=== PATIENT | female | born 1945 | race African-American/Black ===

== ENCOUNTER 2017-12-20 13:08 | Inpatient (IN) | payer OTHER ==
[~2017-12-20] VITALS: Ht 170.2 cm; Wt 33.2 kg
--- NOTE | ~2017-12-20 | EKG ---
[address] [address] ELECTROCARDIOGRAM REPORT Name: SERG GRISSOM Room #: 226- ADM IN M.R.#: [id number] Admission: 12/20/17 Attend Phys: Aakash Yi MD Discharge: Date of : 43 Report #: [id number] THIS REPORT FOR: //name// [facility] Test Date: 2017-12-28 Test Time: 07:15:56 Pat Name: SERG GRISSOM Department: Room: 226 Gender: F Pier Runner: TRISTIAN : 1945 Requested By: Richard Vasquez Order Number: [id number] MD: Oneal Simon Measurements Intervals [place] Rate: 48 P: 61 DC: 136 QRS: 53 QRSD: 115 T: 108 QT: 504 QTc: 451 Interpretive Statements Sinus bradycardia Abnrm T, anterior leads Compared to ECG 12/20/2017 13:55:05 Heart rate has slowed Electronically Signed On 12-28-2017 8:18:13 CDT by Oneal Simon [email or web address] <ELECTRONICALLY SIGNED> By: Oneal Simon MD, [facility] 12/28/1718 4 4 Oneal Simon MD, [facility] /EPI
--- NOTE | ~2017-12-20 | HC ---
[facility] [place] [address] CONSULTATION Name: SERG GRISSOM Room #: 226-P ADM IN M.R.#: [id number] Admission: 12/20/17 Attend Phys: Aakash Yi MD Discharge: Date of : 43 Report #: [id number] THIS REPORT FOR: //name// CC: Aakash Yi NO PCP REASON FOR CONSULTATION: I was asked to evaluate concerning scalp abscess. HISTORY OF PRESENT ILLNESS: The patient is a 72-year-old who presented on 12/20/2017 from home where she was having altered mental status, hyperlipidemia. She was having headache. She was found to have an abscess to her scalp. She underwent bedside debridement and drainage. Cultures revealed MRSA. Treated with clindamycin. No fever or chills. Still has tenderness in her scalp. It is noted that she had presented to the Emergency Room several nights before this for incision and drainage. This was done at [facility]. She has been treated there with ceftriaxone followed by doxycycline. Blood cultures remain negative. Urine culture showed mixed rom. Scalp abscess culture revealed MRSA. She reports scratching her scalp. No previous issues such as chronic wound or skin lesion prior to this. She had a CT scan of the head, which showed a 5 x 8 cm area of inflammatory change. She had left temporal lobe subacute versus chronic infarct. PAST MEDICAL HISTORY: Diabetes, hypertension, anemia, gastritis with gastric ulcers, stroke with previous right hemiparesis, cholecystectomy. ALLERGIES: PENICILLIN AND SULFA. MEDICATIONS: As noted on her MAR, now on clindamycin. FAMILY HISTORY: Noncontributory. SOCIAL HISTORY: Nonsmoker, distant alcohol intake. REVIEW OF SYSTEMS: SKIN: As noted above with no other skin lesions noted. CONSTITUTIONAL: Had no documented fever, chills or sweats. She has had no weight loss. No reported lymphadenopathy. NEUROLOGIC: No other neurologic change other than what is recorded in her HPI. Her mental status has improved since her hospital stay. ENDOCRINE: Has underlying diabetes, which was out of control on admission. CARDIOPULMONARY: No cardiopulmonary complaints. GASTROINTESTINAL AND GENITOURINARY: No GI or complaints. PSYCHIATRIC: No other psychiatric issues noted. PHYSICAL EXAMINATION: GENERAL: She was alert and cooperative. [place] [address] CONSULTATION Name: SERG GRISSOM Room #: 226-P [facility] IN ..#: [id number] Admission: 12/20/17 Attend Phys: Aakash Yi MD Discharge: Date of : 43 Report #: [id number] EYES: With no conjunctival injection or scleral icterus. HENT: Had swelling to the top of her head. There is purulent drainage from a sinus tract there. There was surrounding induration and fluctuance. Able to express a fairly large amount of purulent material from the tissues. This area was exquisitely tender. Surrounding erythema. No neck stiffness. She had full range of motion. No adenopathy noted. Mouth was unremarkable. LUNGS: Clear. HEART: Regular. ABDOMEN: Soft and nontender. EXTREMITIES: Without edema or cyanosis. NEUROLOGIC: Cranial nerves were intact. Strength was equal bilaterally. Sensation was intact bilaterally upper and lower extremities. PSYCHIATRIC: Normal. SKIN: No other skin lesions noted. LABORATORY STUDIES: Sodium 136, potassium 4.4, bicarbonate 26, creatinine 1.7, hemoglobin 10.6, WBC 6.9, platelet count 289,000. Cultures as noted above. IMPRESSION AND PLAN: A 72-year-old with underlying diabetes, previous stroke, presents with methicillin-resistant Staphylococcus aureus scalp abscess. This has been locally debrided at the bedside. She may need more extensive debridement done as well. We will continue with dressing changes twice a day, vancomycin and see how she does over the next 24 hours. If no improvement, would have surgical evaluation for debridement. So far, I do not see any evidence of a skin lesion that would suggest underlying cancer, but if further debridement is done, I would send tissue sample off to pathology. <ELECTRONICALLY SIGNED> By: Agus Boss MD 12/26/17 0853 1409 2333 Agus Boss MD /nt
--- NOTE | ~2017-12-20 | P ---
[facility] [place] [address] PROCEDURE REPORT Name: SERG GRISSOM Room #: 226-P [facility] IN M.R.#: [id number] Admission: 12/20/17 Attend Phys: Aakash Yi MD Discharge: Date of : 44 Report #: [id number] THIS REPORT FOR: //name// CC: Aakash Yi NO PCP PREPROCEDURE DIAGNOSIS: Abscess of the scalp. POSTPROCEDURE DIAGNOSIS: Abscess of the scalp. PROCEDURE: Incision and drainage with extension of previous incision to scalp abscess. ANESTHESIA: 1% lidocaine with 1:100,000 epinephrine injected locally. ESTIMATED BLOOD LOSS: 2 mL. The patient tolerated procedure with 0 pain. HISTORY: This is a 72-year-old female patient with diabetes who was admitted with a persistently draining scalp abscess. She has had prior outpatient incision and drainage procedures and had failed to take antibiotics post-procedure, has become increasingly infected. She has been on intravenous antibiotics and reports no problems today. Examination today demonstrated some persistent purulent drainage without adequate incision for full dressings and appropriate drainage. DESCRIPTION OF PROCEDURE: The patient verbally consented to extension of the existing incision. A time-out was taken and verified right patient, right site, right procedure. The scalp was then prepped and draped in usual sterile fashion using Betadine. A local anesthetic was achieved with 1% lidocaine with epinephrine injected locally. The patient felt no pain with the injection. A 15 blade scalpel was then used to extend the incision. The preprocedure measurements included 1.0 x 0.5 x 1.5. Postprocedure measurements 2.0 x 0.5 x 1.5. A moderate amount of purulent material was expressed and then irrigated from the abscess cavity. It was then packed with 1/4-inch iodoform gauze. The patient tolerated the procedure well. <ELECTRONICALLY SIGNED> By: Vincent Cunningham MD 12/26/17 1401 1307 11 Vincent Cunningham MD /nt
--- NOTE | ~2017-12-20 | O ---
[facility] [place] [address] OPERATIVE REPORT Name: SERG GRISSOM Room #: 226-P ADM IN M.R.#: [id number] Admission: 12/20/17 Attend Phys: Aakash Yi MD Discharge: Date of : 43 Report #: [id number] THIS REPORT FOR: //name// CC: Vincent Yi NO PCP DATE OF SERVICE: 12/28/2017 SURGEON: Richard Vasquez MD WEATHERIZATION FIELD TECHNICIAN: None. PREOPERATIVE DIAGNOSES: 1. Scalp wound secondary to methicillin-resistant Staphylococcus aureus, status post incision and drainage of an abscess. 2. Class 2 obesity. 3. Type 2 diabetes mellitus. 4. Hypertension. 5. Encephalopathy. POSTOPERATIVE DIAGNOSES: 1. Scalp wound secondary to methicillin-resistant Staphylococcus aureus, status post incision and drainage of an abscess. 2. Class 2 obesity. 3. Type 2 diabetes mellitus. 4. Hypertension. 5. Encephalopathy. PROCEDURE: Excisional debridement of scalp wound including skin and subcutaneous tissue (2.5 cm x 0.5 cm). ANESTHESIA: Monitored anesthetic care and local anesthetic. ESTIMATED BLOOD LOSS: 10 mL. SPECIMEN: Scalp skin/subcutaneous tissue. COMPLICATIONS: None appreciated. INDICATIONS FOR PROCEDURE: This is a 72-year-old female patient with a history of previous stroke and type 2 diabetes mellitus, who has recurrent scalp abscess that has persisted despite multiple incision and drainage procedures with appropriate wound care. She has known MRSA. She underwent incision and drainage in the Emergency Room as well as widening of the incision at the [facility] [address] [place] [address] OPERATIVE REPORT Name: SERG GRISSOM Room #: 226-P ADM IN M.R.#: [id number] Admission: 12/20/17 Attend Phys: Aakash Yi MD Discharge: Date of : 44 Report #: [id number] bedside by wound care and continues to drain purulent fluid with fluctuance located anteriorly. She presents today for excisional debridement with further opening of the wound to facilitate wound care. DESCRIPTION OF PROCEDURE IN DETAIL: After the risks, benefits, expectations of the operation were discussed in detail with the patient's family, informed consent was obtained. The patient was identified in the preoperative holding area. She has been receiving scheduled IV antibiotics. She was taken to the operating room. She was placed in the supine position. SCDs were placed on the patient's bilateral lower extremities and pneumatic compression was initiated. The patient was then given IV sedation/monitored anesthetic care. Her scalp was prepped and draped in the standard sterile fashion. A time-out was performed to identify the correct patient and procedure. Local anesthetic was infiltrated into the skin and subcutaneous tissue surrounding the wound. Sharp #15 blade scalpel was used to make an incision that encompassed a length of 2.5 cm x 0.5 cm. The tissue was excised, to be sent for specimen. Cultures were taken from the base of the wound where fibrinous exudate was seen. The wound was then mechanically debrided with 4 x 4. There was good blood supply present. Bleeding points were made hemostatic with electrocautery around the edges of the wound. The wound was then packed with half inch iodoform gauze. 4 x 4s and Kerlix roll were then placed to help with compression of the wound. The patient tolerated the procedure well. She was awakened and taken to recovery room in stable condition with no apparent intraoperative complications. She did remain hypertensive throughout the operation and to the recovery room. <ELECTRONICALLY SIGNED> By: Ricahrd Vasquez MD, FACS 12/28/17 1339 0844 1046 Richard Vasquez MD, FACS /nt
--- NOTE | ~2017-12-20 | EKG ---
[address] [address] ELECTROCARDIOGRAM REPORT Name: SERG GRISSOM Room #: 170-7 ADM IN M.R.#: [id number] Admission: 12/20/17 Attend Phys: Aakash Yi MD Discharge: Date of : 44 Report #: [id number] THIS REPORT FOR: //name// [facility] ED Test Date: 2017-12-20 Test Time: 13:55:05 Pat Name: SERG GRISSOM Department: Room: 170 Gender: F Travel Counselor: as : 1945 Requested By: Parker Russell Order Number: [id number] MD: Josh Thorne Measurements Intervals [place] Rate: 84 P: 45 [place]: 139 QRS: 9 QRSD: 97 T: 58 QT: 403 QTc: 477 Interpretive Statements Sinus rhythm Probable left atrial enlargement Low voltage, extremity leads Nonspecific T abnormalities, anterior leads Compared to ECG 12/19/2017 11:36:07 Low QRS voltage now present T-wave abnormality now present Electronically Signed On 12-20-2017 16:29:38 CDT by Josh Thorne [email or web address] <ELECTRONICALLY SIGNED> By: Josh Thorne MD 12/20/17 1629 1355 1355 Josh Thorne MD /EPI
--- NOTE | ~2017-12-20 | 2DMMODE ---
[facility] [address] [facility] [employer] [place] [address] 2 D/M-MODE ECHOCARDIOGRAM Name: SERG GRISSOM Room #: 462-P ADM IN .R.#: [id number] Admission: 12/20/17 Attend Phys: Aakash Yi MD Discharge: Date of : 43 Date of Service: 12/21/17 1305 Report #: [id number] THIS REPORT FOR: //name// APPROVED REPORT Study performed: 12/21/2017 12:12:59 EXAM: Comprehensive 2D, Doppler, and color-flow Echocardiogram Patient Location: Bedside Room #: 462 Status: routine BSA: 2.13 HR: 88 bpm Rhythm: NSR Other Information Study Quality: Adequate Indications Diabetes Elevated Troponin Hypertension/HDD 2D Dimensions RVDd: 32.76 mm IVSd: 13.23 (7-11mm) LVOT Diam: 18.07 (18-24mm) LVDd: 47.18 mm PWd: 13.08 (7-11mm) Ascending Ao: 28.47 (22-36mm) LVDs: 30.89 (25-40mm) Aortic Root: 30.57 mm IVC: 20.00 mm Volumes Left Atrial Volume (Systole) Single Plane 4CH: 65.53 mL Single Plane 2CH: 47.17 mL LA ESV Index: 28.00 mL/m2 Aortic Valve AoV Peak Mike.: 1.77 m/s AO Peak Gr.: 12.53 mmHg LVOT Max P.99 mmHg LVOT Max V: 1.00 m/s DESMOND Vmax: 1.45 cm2 Mitral Valve E/A Ratio: 0.5 [facility] [address] [place] [address] 2 D/M-MODE ECHOCARDIOGRAM Name: SERG GRISSOM Room #: 462-P [facility]#: [id number] Admission: 12/20/17 Attend Phys: Aakash Yi MD Discharge: Date of : 43 Date of Service: 12/21/17 1305 Report #: [id number] MV Decel. Time: 242.21 ms MV E Max Mike.: 0.67 m/s MV A Mike.: 1.27 m/s MV PHT: 70.24 ms IVRT: 115.34 ms Pulmonary Valve PV Peak Mike.: 1.04 m/s PV Peak Gr.: 4.37 mmHg Pulmonary Vein P Vein S: 0.59 m/s P Vein A: 0.34 m/s P Vein D: 0.30 m/s P Vein A Dur.: 115.3 msec P Vein S/D Ratio: 1.97 Tricuspid Valve TR Peak Mike.: 3.73 m/s TR Peak Gr.: 55.62 mmHg PA Pressure: 66.00 mmHg Left Ventricle The left ventricle is normal size. There is normal LV segmental wall motion. Mild concentric left ventricular hypertrophy. The left ventricular systolic function is normal. The left ventricular ejection fraction is within the normal range. LVEF is 60-65%. Grade I - abnormal relaxation pattern. Right Ventricle The right ventricle is normal size. The right ventricular systolic function is normal. Atria The left atrium size is normal. The right atrium size is normal. Aortic Valve Aortic valve is mildly calcified. No aortic regurgitation is present. There is no aortic valvular stenosis. Mitral Valve Moderate mitral annular calcification. There is no mitral valve regurgitation noted. No evidence of mitral valve stenosis. Tricuspid Valve The tricuspid valve is normal in structure. There is mild tricuspid regurgitation. Estimated PAP 65 mmHg. There is [place] [address] 2 D/M-MODE ECHOCARDIOGRAM Name: SERG GRISSOM Room #: 462-P [facility] IN .R.#: [id number] Admission: 12/20/17 Attend Phys: Aakash Yi MD Discharge: Date of : 43 Date of Service: 12/21/17 1305 Report #: [id number] Pulmonic Valve The pulmonary valve is normal in structure. Trace pulmonic regurgitation. Great Vessels The aortic root is normal in size. IVC is dilated and collapses >50% with inspiration. Pericardium There is no pericardial effusion. <Conclusion> The left ventricular systolic function is normal. There is normal LV segmental wall motion. LVEF is 60-65%. Mild diastolic dysfunction Aortic valve is mildly calcified. No aortic regurgitation or stenosis Moderate mitral annular calcification. No mitral valve regurgitation noted. There is mild tricuspid regurgitation. Estimated pulmonary artery pressure of 65 mmHg. There is no pericardial effusion. <ELECTRONICALLY SIGNED> By: Oneal Simon MD, FACC 12/21/17 1305 1305 1305 Oneal Simon MD, FACC /INF
--- NOTE | ~2017-12-20 | HC ---
[facility] [place] [address] CONSULTATION Name: SERG GRISSOM Room #: 226-P ADM IN M.R.#: [id number] Admission: 12/20/17 Attend Phys: Aakash Yi MD Discharge: Date of : 43 Report #: [id number] THIS REPORT FOR: //name// CC: Aakash PEDRO PCP DATE OF SERVICE: 12/21/2017 CHIEF COMPLAINT: Scalp abscess. HISTORY OF PRESENT ILLNESS: This is a 72-year-old female patient, with a history of previous cerebrovascular accident and type 2 diabetes mellitus, who has had a persistent and/or recurrent scalp abscess. She has had multiple Emergency Room visits with incision and drainage procedures. She has had antibiotics prescribed, although they were not filled in the area and has continued to worsen with increased drainage. PAST MEDICAL HISTORY: Positive for history of acute kidney injury, altered mental status, dehydration, diabetes mellitus, diarrhea and sciatica. ALLERGIES: PENICILLIN AND SULFA. MEDICATIONS: Includes metoprolol, doxycycline, hydrocodone, losartan, simvastatin, amlodipine, Plavix, iron, Humalog, Avalide, Mag-Ox, Neurontin, aspirin, Levemir, Cymbalta, Coreg. SOCIAL HISTORY: Negative for alcohol or tobacco use. FAMILY HISTORY: Noncontributory. REVIEW OF SYSTEMS: Really not able to be obtained due to the patient's mental status. PHYSICAL EXAMINATION: VITAL SIGNS: At this time include temperature 36.9, pulse 70, respiratory rate of 16, blood pressure 145/85. GENERAL: This is a chronically ill-appearing female patient who appears to be in minimal distress. HEAD: Demonstrates an area of erythema and some induration as well as a small open wound to the vertex of her scalp. There is moderate purulent drainage noted at this time. There is undermining from beneath as well. The area is tender to palpation. Head is atraumatic. Nose and throat clear. NECK: Supple. LUNGS: Clear. ABDOMEN: Soft. CARDIOVASCULAR: Regular rhythm. [address] [address] CONSULTATION Name: SERG GRISSOM Room #: [facility] IN ..#: [id number] Admission: 12/20/17 Attend Phys: Aakash Yi MD Discharge: Date of : 43 Report #: [id number] EXTREMITIES: Without clubbing or cyanosis. LABORATORY DATA: Includes white blood cell count of 10.8, hemoglobin 11.8, hematocrit of 35.1. Sodium 136, potassium 4.5, CO2 of 25, BUN 26, creatinine 1.4, hemoglobin A1c is 11.6. CLINICAL IMPRESSION: 1. Scalp abscess, failing outpatient therapy. 2. Medical noncompliance. 3. Type 2 diabetes mellitus with hyperglycemia, uncontrolled. Hemoglobin A1c 11.6. 4. Moderate protein calorie malnutrition with albumin of 2.3. RECOMMENDATIONS: At this point in time, I obtained a culture and sensitivity from the scalp wound. We packed it with iodoform gauze at present. We will recommend intravenous antibiotic therapy. We will check her again in the morning. Should she have significant improvement, we will continue with local care. If not, she may require a wider debridement and drainage procedure. She will need aggressive nutritional support to maximize wound healing and improve glycemic control. I appreciate having been asked to see her in consultation. <ELECTRONICALLY SIGNED> By: Vincent Cunningham MD 12/22/17 0739 2224 0138 Vincent Cunningham MD /nt
--- NOTE | ~2017-12-20 | PATH ---
[facility] [address] [place] [address] PATHOLOGY RPT PROCEDURE Name: SERG GRISSOM Room #: 226-P DIS IN M.R.#: [id number] Admission: 12/20/17 Date of : 43 Discharge: 01/02/18 Report #: [id number] Path Case #: [id number] [facility] Accession Number: [id number] . 01 Material submitted: . SCALP WOUND . 01 Clinician provided ICD-10: L02.811 . 01 Clinical history: . Scalp wound . 02 Diagnosis: Scalp wound, debridement with irrigation: - Ulceration along with marked acute inflammation extending into the underlying dermis and subcutaneous tissue as well as with fibrinoid degeneration, consistent with wound. - Overlying squamous epithelium showing reactive changes. - Negative for malignancy. . (IUV:at;12/29/2017) QTA/12/29/2017 . 02 Electronically signed: . Nena Li MD, Pathologist NPI- [id number] . 01 Gross description: . The specimen is received in formalin, labeled "Serg Grissom, scalp wound", is an irregular segment of brock-white skin measuring 2.0 x 1.5 x 0.5 cm, serially sectioned and entirely submitted in A1. (SWS; 12/28/2017) SHS/SHS . 02 Pathologist provided ICD-10: L98.499, L03.811 . 02 CPT . 981697 Specimen Comment: A courtesy copy of this report has been sent to Specimen Comment: [phone], . Specimen Comment: Report sent to / DR MORAN Performed at: [address] [place] [id number] [id number] MD Deo Gutiérrez MD Phone: [phone] [address] [address] PATHOLOGY RPT PROCEDURE Name: SERG GRISSOM Room #: 226-P [facility] IN M.R.#: [id number] Admission: 12/20/17 Date of : 43 Discharge: 01/02/18 Report #: [id number] Path Case #: [id number] Performed at: [address] [id number] MD Nena Li MD Phone: [phone]
[~2017-12-20 13:08] MED LIST: ACTOS; AMLODIPINE; ANTIDIARRHEAL2 MG PO; ASPIR 8181 MG PO; AVALIDE 300-121 EACH PO; BAYER CHEWABLE81 MG; CALCIUM 600 +1 EAC1 PO; CARAFATE 1 GM TA1 G1 PO; CIPROFLOXACIN500 M1 PO; CLONIDINE0.1 PO; COLACE100 MG PO; CYMBALTA60 MG PO; FLAGYL500 MG PO; HCTZ; HUMALOG100 UNIT/1 SUBQ; HUMULIN 70100 UNIT/2 SUBQ; HYDROCHLOROTHIA25 M2 PO; IMODIUM MULTI-1 EACH PO; IRON325 PO; LANTUS SUBQ; LANTUS100 UNIT/M; LANTUS100 UNIT/M SUBQ; LEVEMIR SUBQ; LEVEMIR100 UNIT/1 SQ; LISINOPRIL; LISINOPRIL20 MG PO; MAGOX 400400 MG PO; MAXZIDE-25 MG1 EACH PO; METOPROLOL SUCC50 MG PO; NAPROSYN500 MG PO; NEURONTIN 300300 M1 PO; NORCO 10-325 T1 EACH PO; NORCO 5-325 TA1 EACH PO; NORVASC5 MG PO; NOVOLOG100 UNIT/1; NOVOLOG100 UNIT/1 SQ; NOVOLOG100 UNIT/1 SUBQ; NOVOLOG100 UNIT/M SUBQ; ONDANSETRON HCL4 M2 PO; PLAVIX 75 MG TA75 M1 PO; PROTONIX40 M1 PO; PROTONIX40 M4 PO; PROTONIX40 MG PO; REGLAN 10 MG TA10 MG PO; SIMVASTATIN40 MG PO; TRAMADOL 50 MG50 MG PO; TRIAMTERENE-HC1 EAC2 PO; TRIAMTERENE/HCT1 CA1 PO; VIBRAMYCIN 100100 M2 PO; VOLTAREN GEL 1100 G2; ZOCOR; ZOCOR 10 MG TAB10 MG; ZOFRAN ODT4 MG PO; ZOFRAN4 MG PO
[2017-12-20 13:09] VITALS: BP 100/79
[2017-12-20 14:59] LABS: ABSOLUTE NEUTROPHILS 8.6 thou/uL (1.4-8.2); BASOPHILS 0.6 % (0.0-2.0); EOSINOPHILS 1.2 % (0.0-3.0); HEMATOCRIT 35.1 % (37.0-47.0); HEMOGLOBIN 11.8 gm/dL (12.0-15.0); LYMPHOCYTES 13.1 % (24.0-44.0); MCH 29.3 pg (26.0-34.0); MCHC 33.6 g/dL (28.0-37.0); MONOCYTES 6.1 % (1.0-8.0); PLATELET COUNT 286 thou/uL (150-400); RBC 4.04 mil/uL (4.20-5.00); RDW 14.9 % (10.5-14.5); WBC 10.8 thou/uL (4.0-11.0)
[2017-12-20 15:18] LABS: CALCIUM 9.6 mg/dL (8.5-10.1); CREATININE 1.7 mg/dL (0.6-1.0); POTASSIUM 4.3 mmol/L (3.5-5.1)
[2017-12-20 15:23] LABS: TROPONIN-I 0.3 ng/mL (<0.06)
[2017-12-20 15:42] LABS: URINE BILIRUBIN NEGATIVE (Negative); URINE BLOOD 2+ (Negative); URINE CLARITY CLEAR; URINE COLOR YELLOW; URINE GLUCOSE-RANDOM* 3+ (Negative); URINE KETONES 1+ (Negative); URINE LEUKOCYTES-REFLEX NEGATIVE (Negative); URINE NITRITE-REFLEX NEGATIVE (Negative); URINE PROTEIN (DIPSTICK) 2+ (Negative); URINE SPECIFIC GRAVITY 1.025 (1.005-1.035); URINE UROBILINOGEN 0.2 E.U./dl (0.2-1.0)
[2017-12-20 15:55] LABS: BACTERIA-REFLEX 1-9 Few /HPF (None Seen); CASTS None Seen /LPF (None Seen); CRYSTALS None Seen /LPF (None Seen); MUCUS 0-3 Light strn/LPF (None Seen); SQUAMOUS >10 Many /LPF (0-3); URINE RBC 0-2 Rare /HPF (0-2); YEAST-REFLEX Present (None Seen)
[2017-12-20 16:43] VITALS: BP 127/100
[2017-12-20 16:54] VITALS: BP 128/92
[2017-12-20] MEDS ORDERED: LOSARTAN POTASS50 MG PO (17:22)
[2017-12-20] MEDS ORDERED: ZANTAC 150MG T150 MG PO (17:24)
[2017-12-20] MEDS ORDERED: CYMBALTA60 MG PO (17:25)
[2017-12-20] MEDS ORDERED: COREG6.25 MG PO (17:28)
[2017-12-20 17:50] VITALS: BP 189/78
[2017-12-20 19:59] VITALS: BP 169/107
[2017-12-21 00:47] VITALS: BP 171/80
[2017-12-21 04:53] VITALS: BP 139/65
[2017-12-21 05:23] LABS: HEMATOCRIT 31.4 % (37.0-47.0); HEMOGLOBIN 10.5 gm/dL (12.0-15.0); MCHC 33.6 g/dL (28.0-37.0); MCV 86.5 fL (80.0-100.0); RBC 3.63 mil/uL (4.20-5.00); RDW 14.6 % (10.5-14.5); WBC 8.6 thou/uL (4.0-11.0)
[2017-12-21 05:47] LABS: CALCIUM 8.9 mg/dL (8.5-10.1); CREATININE 1.4 mg/dL (0.6-1.0); POTASSIUM 3.6 mmol/L (3.5-5.1); TROPONIN-I 0.27 ng/mL (<0.06)
[2017-12-21 07:35] VITALS: BP 152/68
[2017-12-21 15:35] VITALS: BP 145/85
[2017-12-21 21:04] VITALS: BP 144/75
[2017-12-22 07:45] VITALS: BP 149/69
[2017-12-22 07:49] LABS: HEMATOCRIT 28.9 % (37.0-47.0); HEMOGLOBIN 9.7 gm/dL (12.0-15.0); MCH 28.8 pg (26.0-34.0); MCHC 33.7 g/dL (28.0-37.0); MCV 85.7 fL (80.0-100.0); RBC 3.38 mil/uL (4.20-5.00); RDW 14.4 % (10.5-14.5); WBC 7.2 thou/uL (4.0-11.0)
[2017-12-22 08:05] LABS: CALCIUM 8.9 mg/dL (8.5-10.1); CREATININE 1.6 mg/dL (0.6-1.0); MAGNESIUM 1.5 mg/dL (1.8-2.4); POTASSIUM 3.9 mmol/L (3.5-5.1); TROPONIN-I 0.18 ng/mL (<0.06)
[2017-12-22 16:35] VITALS: BP 146/69
[2017-12-22 19:10] VITALS: BP 125/77
[2017-12-23 07:27] LABS: HEMATOCRIT 29.1 % (37.0-47.0); HEMOGLOBIN 9.4 gm/dL (12.0-15.0); MCH 28.1 pg (26.0-34.0); MCHC 32.4 g/dL (28.0-37.0); MCV 86.6 fL (80.0-100.0); RBC 3.36 mil/uL (4.20-5.00); RDW 14.5 % (10.5-14.5); WBC 6.3 thou/uL (4.0-11.0)
[2017-12-23 07:40] LABS: CALCIUM 9.1 mg/dL (8.5-10.1); CREATININE 1.8 mg/dL (0.6-1.0); POTASSIUM 4.2 mmol/L (3.5-5.1)
[2017-12-23 08:19] VITALS: BP 172/89
[2017-12-23 19:58] VITALS: BP 126/93
[2017-12-24 08:23] VITALS: BP 164/81
[2017-12-24 20:06] VITALS: BP 154/109
[2017-12-25 07:30] VITALS: BP 158/102
[2017-12-25 10:25] LABS: ABSOLUTE NEUTROPHILS 4.7 thou/uL (1.4-8.2); BASOPHILS 0.6 % (0.0-2.0); EOSINOPHILS 3.1 % (0.0-3.0); HEMATOCRIT 31.7 % (37.0-47.0); HEMOGLOBIN 10.6 gm/dL (12.0-15.0); LYMPHOCYTES 22.8 % (24.0-44.0); MCH 29.1 pg (26.0-34.0); MCHC 33.6 g/dL (28.0-37.0); MCV 86.6 fL (80.0-100.0); MONOCYTES 5.5 % (1.0-8.0); PLATELET COUNT 289 thou/uL (150-400); RBC 3.66 mil/uL (4.20-5.00); RDW 14.7 % (10.5-14.5); WBC 6.9 thou/uL (4.0-11.0)
[2017-12-25 10:35] LABS: CREATININE 1.7 mg/dL (0.6-1.0); POTASSIUM 4.4 mmol/L (3.5-5.1)
[2017-12-25 21:17] VITALS: BP 134/63
[2017-12-26 07:21] LABS: HEMATOCRIT 33.2 % (37.0-47.0); HEMOGLOBIN 10.9 gm/dL (12.0-15.0); MCH 28.5 pg (26.0-34.0); MCHC 32.8 g/dL (28.0-37.0); MCV 86.9 fL (80.0-100.0); RBC 3.82 mil/uL (4.20-5.00); RDW 14.5 % (10.5-14.5); WBC 7.6 thou/uL (4.0-11.0)
[2017-12-26 07:25] VITALS: BP 193/89
[2017-12-26 07:27] LABS: CALCIUM 9.5 mg/dL (8.5-10.1); CREATININE 1.5 mg/dL (0.6-1.0); POTASSIUM 4.4 mmol/L (3.5-5.1)
[2017-12-26 19:33] VITALS: BP 151/71
[2017-12-27 08:33] VITALS: BP 196/86
[2017-12-27 16:05] LABS: HEMATOCRIT 29.8 % (37.0-47.0); HEMOGLOBIN 9.9 gm/dL (12.0-15.0); MCH 28.9 pg (26.0-34.0); MCHC 33.2 g/dL (28.0-37.0); MCV 87.1 fL (80.0-100.0); RBC 3.41 mil/uL (4.20-5.00); WBC 6.8 thou/uL (4.0-11.0)
[2017-12-27 16:17] LABS: ALBUMIN 1.8 g/dL (3.4-5.0); CALCIUM 8.9 mg/dL (8.5-10.1); CREATININE 1.5 mg/dL (0.6-1.0); MAGNESIUM 1.6 mg/dL (1.8-2.4); POTASSIUM 4.7 mmol/L (3.5-5.1); TOTAL BILIRUBIN 0.2 mg/dL (<0.1-1.0); TOTAL PROTEIN 6.3 g/dL (6.4-8.2)
[2017-12-27 17:33] VITALS: BP 156/71
[2017-12-27 19:42] VITALS: BP 152/73
[2017-12-28 06:02] VITALS: BP 185/74
[2017-12-28 06:35] LABS: HEMATOCRIT 30.8 % (37.0-47.0); HEMOGLOBIN 10.1 gm/dL (12.0-15.0); MCH 29.1 pg (26.0-34.0); MCHC 32.8 g/dL (28.0-37.0); MCV 88.6 fL (80.0-100.0); RBC 3.48 mil/uL (4.20-5.00); RDW 14.9 % (10.5-14.5); WBC 6.7 thou/uL (4.0-11.0)
[2017-12-28 06:44] LABS: CALCIUM 9.3 mg/dL (8.5-10.1); CREATININE 1.5 mg/dL (0.6-1.0); MAGNESIUM 1.8 mg/dL (1.8-2.4); POTASSIUM 4.6 mmol/L (3.5-5.1)
[2017-12-28 07:12] VITALS: BP 153/73
[2017-12-28 20:55] VITALS: BP 205/95
[2017-12-28 22:00] VITALS: BP 132/61
[2017-12-29 07:35] VITALS: BP 154/68
[2017-12-29 08:18] LABS: HEMOGLOBIN 9.4 gm/dL (12.0-15.0); MCH 27.9 pg (26.0-34.0); MCHC 31.3 g/dL (28.0-37.0); MCV 89.2 fL (80.0-100.0); RBC 3.36 mil/uL (4.20-5.00); RDW 15.2 % (10.5-14.5); WBC 7.4 thou/uL (4.0-11.0)
[2017-12-29 08:27] LABS: CALCIUM 8.8 mg/dL (8.5-10.1); CREATININE 1.5 mg/dL (0.6-1.0); MAGNESIUM 1.7 mg/dL (1.8-2.4); POTASSIUM 5.3 mmol/L (3.5-5.1)
[2017-12-29] MEDS ORDERED: NORCO 5-325 TA1 EACH PO (11:39)
[2017-12-29] MEDS ORDERED: VANCO1GM IVPB (11:56)
[2017-12-29 20:08] VITALS: BP 168/66
[2017-12-30 08:01] VITALS: BP 159/76
[2017-12-30 08:29] LABS: HEMATOCRIT 27.1 % (37.0-47.0); HEMOGLOBIN 9.1 gm/dL (12.0-15.0); MCH 29.4 pg (26.0-34.0); MCHC 33.5 g/dL (28.0-37.0); MCV 87.7 fL (80.0-100.0); RBC 3.09 mil/uL (4.20-5.00); RDW 15.1 % (10.5-14.5); WBC 6.5 thou/uL (4.0-11.0)
[2017-12-30 08:41] LABS: CALCIUM 8.9 mg/dL (8.5-10.1); CREATININE 1.6 mg/dL (0.6-1.0); MAGNESIUM 1.6 mg/dL (1.8-2.4); POTASSIUM 4.4 mmol/L (3.5-5.1)
[2017-12-30 18:26] VITALS: BP 141/49
[2017-12-30 20:00] VITALS: BP 150/70
[2017-12-31 05:49] LABS: HEMATOCRIT 26.5 % (37.0-47.0); HEMOGLOBIN 8.7 gm/dL (12.0-15.0); MCH 28.9 pg (26.0-34.0); MCHC 32.8 g/dL (28.0-37.0); RBC 3.01 mil/uL (4.20-5.00); RDW 14.9 % (10.5-14.5); WBC 6.5 thou/uL (4.0-11.0)
[2017-12-31 06:03] LABS: CREATININE 1.9 mg/dL (0.6-1.0); MAGNESIUM 1.5 mg/dL (1.8-2.4); POTASSIUM 4.7 mmol/L (3.5-5.1)
[2017-12-31 08:25] VITALS: BP 145/63
[2017-12-31 14:50] VITALS: BP 138/58
[2017-12-31 15:50] VITALS: BP 135/76
[2017-12-31 20:00] VITALS: BP 154/61
[2018-01-01 08:28] VITALS: BP 166/71
[2018-01-01 18:55] VITALS: BP 147/64
[2018-01-01 22:00] VITALS: BP 154/108
[2018-01-01 22:27] VITALS: BP 147/64
[2018-01-02 01:13] VITALS: BP 144/55
[2018-01-02] MEDS ORDERED: MIRALAX17 GM PO (09:36)
[2018-01-02] MEDS ORDERED: FOLIC ACID0.4 MG PO (09:36)
[2018-01-02] MEDS ORDERED: TYLENOL325 MG PO (09:36)
[2018-01-02] MEDS ORDERED: PROBIOTIC1 EAC1 PO (09:36)
[2018-01-02] MEDS ORDERED: HEPARIN SO5000 UNIT/ SUBQ (09:36)
[2018-01-02] MEDS ORDERED: HYDRALAZINE 2525 MG PO (09:36)
[2018-01-02] MEDS ORDERED: SENNA PLUS TAB1 EACH PO (09:36)
[2018-01-02] MEDS ORDERED: VANCO1GM IVPB (09:43)
== END 2018-01-02 10:37 | DRG 853 ==
LOC: ER 13:08 → 4W 16:25 → EROBS 16:25 → 4W 17:35 → SICU 12-21 18:06
PROVIDERS: Hospitalist; Internal Medicine; Physician Assistant
PROC: 0H90XZZ Drainage of Scalp Skin, External Approach (ICD-10-PCS; principal; 2017-12-20)
PROC: 0J900ZZ Drainage of Scalp Subcutaneous Tissue and Fascia, Open Approach (ICD-10-PCS; 2017-12-26)
PROC: 0JD00ZZ Extraction of Scalp Subcutaneous Tissue and Fascia, Open Approach (ICD-10-PCS; 2017-12-28)
DX: A41.9 Sepsis, unspecified organism (principal); G92 Toxic encephalopathy; N17.0 Acute kidney failure with tubular necrosis; L02.811 Cutaneous abscess of head [any part, except face]; N39.0 Urinary tract infection, site not specified; I69.351 Hemiplegia and hemiparesis following cerebral infarction affecting right dominant side; E44.0 Moderate protein-calorie malnutrition; L03.811 Cellulitis of head [any part, except face]; Z68.1 Body mass index [BMI] 19.9 or less, adult; R26.9 Unspecified abnormalities of gait and mobility; E11.40 Type 2 diabetes mellitus with diabetic neuropathy, unspecified; B95.62 Methicillin resistant Staphylococcus aureus infection as the cause of diseases classified elsewhere; E78.5 Hyperlipidemia, unspecified; E83.42 Hypomagnesemia; E66.8 Other obesity; I12.9 Hypertensive chronic kidney disease with stage 1 through stage 4 chronic kidney disease, or unspecified chronic kidney disease; M62.84 Sarcopenia; D50.9 Iron deficiency anemia, unspecified; N18.9 Chronic kidney disease, unspecified; R79.89 Other specified abnormal findings of blood chemistry; M54.30 Sciatica, unspecified side; E11.65 Type 2 diabetes mellitus with hyperglycemia; Z79.82 Long term (current) use of aspirin; Z79.84 Long term (current) use of oral hypoglycemic drugs; Z79.899 Other long term (current) drug therapy; Z90.49 Acquired absence of other specified parts of digestive tract; Z91.14 Patient's other noncompliance with medication regimen; Z79.4 Long term (current) use of insulin; Z88.2 Allergy status to sulfonamides; Z88.0 Allergy status to penicillin
CPT/HCPCS: 10045; 15002; 27000; 50010; 50101; 50386; 50403; 62110; 62850; 70005

== ENCOUNTER → 2018-01-10 | Outpatient (CLI) | payer OTHER ==
[~2018-01-10] MED LIST changes: +COREG6.25 MG PO; +FOLIC ACID0.4 MG PO; +HEPARIN SO5000 UNIT/ SUBQ; +HYDRALAZINE 2525 MG PO; +LOSARTAN POTASS50 MG PO; +MIRALAX17 GM PO; +PROBIOTIC1 EAC1 PO; +SENNA PLUS TAB1 EACH PO; +TYLENOL325 MG PO; +VANCO1GM IVPB; +ZANTAC 150MG T150 MG PO
== END ==
LOC: HYPER 01-03 10:36
DX: T81.89XD Other complications of procedures, not elsewhere classified, subsequent encounter (principal); E11.10 Type 2 diabetes mellitus with ketoacidosis without coma; E11.65 Type 2 diabetes mellitus with hyperglycemia; E66.9 Obesity, unspecified; I67.9 Cerebrovascular disease, unspecified; I10 Essential (primary) hypertension; M54.30 Sciatica, unspecified side; M62.84 Sarcopenia; M79.89 Other specified soft tissue disorders; R41.82 Altered mental status, unspecified; Z79.4 Long term (current) use of insulin; Z68.41 Body mass index [BMI] 40.0-44.9, adult; Y92.89 Other specified places as the place of occurrence of the external cause; Y83.8 Other surgical procedures as the cause of abnormal reaction of the patient, or of later complication, without mention of misadventure at the time of the procedure

== ENCOUNTER → 2018-01-24 | Outpatient (CLI) | payer OTHER | LOC: HYPER 06:44 | DX: T81.89XD Other complications of procedures, not elsewhere classified, subsequent encounter (principal); L02.811 Cutaneous abscess of head [any part, except face]; E11.10 Type 2 diabetes mellitus with ketoacidosis without coma; E11.65 Type 2 diabetes mellitus with hyperglycemia; I67.9 Cerebrovascular disease, unspecified; I10 Essential (primary) hypertension; M79.89 Other specified soft tissue disorders; M54.30 Sciatica, unspecified side; M62.84 Sarcopenia; Y83.8 Other surgical procedures as the cause of abnormal reaction of the patient, or of later complication, without mention of misadventure at the time of the procedure ==

== ENCOUNTER 2018-03-25 17:27 | Emergency (ER) | payer OTHER ==
[~2018-03-25] VITALS: Ht 160 cm; Wt 100.7 kg
[2018-03-25 18:39] LABS: BASOPHILS 0.9 % (0.0-2.0); EOSINOPHILS 1.6 % (0.0-3.0); HEMATOCRIT 41.2 % (37.0-47.0); HEMOGLOBIN 13.6 gm/dL (12.0-15.0); MCHC 33.1 g/dL (28.0-37.0); MCV 87.5 fL (80.0-100.0); MONOCYTES 5.1 % (1.0-8.0); POLYS 73.4 % (36.0-66.0); RBC 4.71 mil/uL (4.20-5.00); RDW 14.7 % (10.5-14.5); WBC 6.9 thou/uL (4.0-11.0)
[2018-03-25 19:03] LABS: PLATELET COUNT 189 thou/uL (150-400)
[2018-03-25 19:28] LABS: URINE CLARITY CLEAR; URINE COLOR YELLOW; URINE GLUCOSE-RANDOM* 3+ (Negative); URINE PROTEIN (DIPSTICK) 3+ (Negative); URINE SPECIFIC GRAVITY 1.025 (1.005-1.035)
[2018-03-25 19:29] LABS: URINE BILIRUBIN NEGATIVE (Negative); URINE BLOOD 1+ (Negative); URINE KETONES NEGATIVE (Negative); URINE LEUKOCYTES-REFLEX NEGATIVE (Negative); URINE NITRITE-REFLEX NEGATIVE (Negative); URINE UROBILINOGEN 0.2 E.U./dl (0.2-1.0)
[2018-03-25 19:30] LABS: CASTS None Seen /LPF (None Seen); CRYSTALS None Seen /LPF (None Seen); SQUAMOUS >10 Many /LPF (0-3)
[2018-03-25 19:31] LABS: AMORPHOUS URATES Many /LPF (None Seen); HYALINE CASTS 0-3 Few /LPF (None Seen); URINE WBC-REFLEX 0-5 Rare /HPF (0-5)
[2018-03-25 19:32] LABS: BACTERIA-REFLEX 1-9 Few /HPF (None Seen); URINE RBC 0-2 Rare /HPF (0-2)
[2018-03-25 19:33] LABS: ALBUMIN 2.8 g/dL (3.4-5.0); CALCIUM 9.3 mg/dL (8.5-10.1); CREATININE 2.2 mg/dL (0.6-1.0); POTASSIUM 3.5 mmol/L (3.5-5.1); TOTAL BILIRUBIN 0.3 mg/dL (<0.1-1.0); TOTAL PROTEIN 6.8 g/dL (6.4-8.2); TROPONIN-I 0.09 ng/mL (<0.06)
--- NOTE | 2018-03-25 22:24 | EKG ---
[address] [place] [address] ELECTROCARDIOGRAM REPORT Name: JACIELSERGLAITH Room #: [facility]#: [id number] Admission: 03/25/18 Attend Phys: Discharge: Date of : 43 Report #: [id number] THIS REPORT FOR: //name// [facility] ED Test Date: 2018-03-25 Test Time: 17:30:14 Pat Name: SERG GRISSOM Department: Room: Gender: F Drawing Checker: : 1945 Requested By: Danielle Ferrara Order Number: [id number] MD: Josh Thorne Measurements Intervals [place] Rate: 91 P: 53 [place]: 145 QRS: 47 QRSD: 88 T: 107 QT: 427 QTc: 526 Interpretive Statements Sinus rhythm Probable left atrial enlargement Borderline low voltage, extremity leads Borderline repolarization abnormality Prolonged QT interval Compared to ECG 12/28/2017 07:15:56 Prolonged QT interval now present Sinus bradycardia no longer present Electronically Signed On 03-25-2018 22:24:20 AUTOMATIC GRINDER OPERATOR by Josh Thorne [email or web address] <ELECTRONICALLY SIGNED> By: Josh Thorne MD 03/25/18 2224 1730 173 Josh Thorne MD /EPI
[2018-03-25 23:40] VITALS: BP 160/85
== END 2018-03-26 00:57 | disposition home or self-care (01) ==
LOC: ER 17:27
PROVIDERS: Physician Assistant
DX: E11.65 Type 2 diabetes mellitus with hyperglycemia (principal); R55 Syncope and collapse; E86.0 Dehydration; I10 Essential (primary) hypertension; F03.90 Unspecified dementia, unspecified severity, without behavioral disturbance, psychotic disturbance, mood disturbance, and anxiety; Z86.73 Personal history of transient ischemic attack (TIA), and cerebral infarction without residual deficits; Z86.2 Personal history of diseases of the blood and blood-forming organs and certain disorders involving the immune mechanism; Z90.49 Acquired absence of other specified parts of digestive tract; Z88.0 Allergy status to penicillin; Z88.2 Allergy status to sulfonamides; Z79.4 Long term (current) use of insulin

== ENCOUNTER 2018-04-24 17:22 | Inpatient (IN) | payer OTHER ==
[~2018-04-24] VITALS: Ht 157.5 cm; Wt 89.5 kg
[2018-04-24 17:23] VITALS: BP 177/83
[2018-04-24 20:40] LABS: ABSOLUTE NEUTROPHILS 5.8 thou/uL (1.4-8.2); BASOPHILS 0.7 % (0.0-2.0); EOSINOPHILS 0.3 % (0.0-3.0); HEMATOCRIT 40.9 % (37.0-47.0); HEMOGLOBIN 13.6 gm/dL (12.0-15.0); LYMPHOCYTES 16.4 % (24.0-44.0); MCHC 33.2 g/dL (28.0-37.0); MCV 87.3 fL (80.0-100.0); MONOCYTES 5.5 % (1.0-8.0); PLATELET COUNT 250 thou/uL (150-400); POLYS 77.1 % (36.0-66.0); RBC 4.69 mil/uL (4.20-5.00); RDW 14.4 % (10.5-14.5); WBC 7.5 thou/uL (4.0-11.0)
[2018-04-24 20:46] LABS: CALCIUM 9.8 mg/dL (8.5-10.1); CREATININE 1.7 mg/dL (0.6-1.0); POTASSIUM 3.5 mmol/L (3.5-5.1)
[2018-04-24 20:55] LABS: ALBUMIN 2.9 g/dL (3.4-5.0); APTT 24.7 Seconds (24.5-32.8); DIRECT BILIRUBIN 0.1 mg/dL (<0.1-0.3); PROTIME 10.2 Seconds (9.3-11.4); TOTAL BILIRUBIN 0.4 mg/dL (<0.1-1.0); TOTAL PROTEIN 7.2 g/dL (6.4-8.2); TROPONIN-I 0.13 ng/mL (<0.06)
[2018-04-24 22:07] VITALS: BP 177/90
[2018-04-24 22:53] VITALS: BP 139/116
[2018-04-24 23:08] VITALS: BP 199/110
--- NOTE | 2018-04-25 00:43 | NUR ---
PATIENT WAS A NEW ADMISSION TO THE UNIT THIS SHIFT. SHE ARRIVED VIA CART FROM THE ER AND WAS TRANSFERRED TO BED WITHOUT INCIDENT. PATIENT IS ABLE TO PARTICIPATE IN ADMISSION BUT IS UNWILLING TO COMMUNICATE ALWAYS BUT CAN MAKE NEEDS KNOWN WHEN SHE WANTS TO. NURSE TO COMPLETE ADMISSION AND INITIATE CARE PLAN.
[2018-04-25] MEDS ORDERED: ATORVASTATIN CA40 MG PO (02:17)
[2018-04-25] MEDS ORDERED: GLIPIZIDE 10 MG10 MG PO (02:18)
[2018-04-25] MEDS ORDERED: ARICEPT 5 MG TAB5 MG PO (02:18)
[2018-04-25] MEDS ORDERED: KEPPRA 500 MG500 M1 PO (02:22)
[2018-04-25] MEDS ORDERED: COZAAR 25 MG TA25 M1 PO (02:23)
[2018-04-25] MEDS ORDERED: TRAMADOL 50 MG50 MG PO (02:24)
[2018-04-25] MEDS ORDERED: PROTONIX40 M1 PO (02:24)
[2018-04-25] MEDS ORDERED: TUMS PO (03:40)
[2018-04-25] MEDS ORDERED: HYDRALAZINE 2525 MG PO (03:41)
[2018-04-25] MEDS ORDERED: HYDROCODONE-ACE15 ML PO (03:44)
[2018-04-25] MEDS ORDERED: LANTUS SUBQ (03:46)
[2018-04-25] MEDS ORDERED: NYAMYC15 GM TOP (03:48)
[2018-04-25] MEDS ORDERED: MAGNESIUM500 MG PO (03:48)
[2018-04-25 03:53] VITALS: BP 190/101
[2018-04-25 07:58] VITALS: BP 143/87
--- NOTE | 2018-04-25 08:23 | EKG ---
[address] [place] [place] [address] ELECTROCARDIOGRAM REPORT Name: SERG GRISSOM Room #: 362-P ADM IN M.R.#: [id number] Admission: 04/24/18 Attend Phys: Aakash Yi MD Discharge: Date of : 43 Report #: [id number] THIS REPORT FOR: //name// [facility] ED Test Date: 2018-04-24 Test Time: 17:40:32 Pat Name: SERG GRISSOM Department: Room: 362 Gender: F School Bus Monitor: amado : 1945 Requested By: Son Muñoz Order Number: [id number] MD: Oneal Simon Measurements Intervals [place] Rate: 89 P: 45 [place]: 141 QRS: 18 QRSD: 97 T: 94 QT: 406 QTc: 495 Interpretive Statements Sinus rhythm Poor R wave progression Borderline prolonged QT interval Compared to ECG 03/25/2018 17:30:14 Nonspecific change in the ST and T-wave segments Electronically Signed On 04-25-2018 8:22:55 DISC PAD PLATE FILLER by Oneal Simon [email or web address] <ELECTRONICALLY SIGNED> By: Oneal Simon MD, [facility] 04/25/18 0822 1740 1740 Oneal Simon MD, [facility] /EPI
[2018-04-25] MEDS ORDERED: NOVOLIN R100 UNIT/1 SUBQ (10:36)
--- NOTE | 2018-04-25 10:46 | NUR ---
ASSESSMENT: CM REVIEWED CHART AND MET WITH PATIENT AND HER DAUGHTER AND GRANDSON AT THE BEDSIDE. PT SMILING BUT NOT ANSWERING QUESTIONS FOR CM AND INFORMATION WAS PROVIDED BY DAUGHTER. PT LIVES AT HOME WITH HER DAUGHTER AND GRANDDAUGHTER AND GRANDSON ALSO COMES OVER AT TIMES TO HELP WITH HER. DAUGHTER REPORTS SOMEONE IS USUALLY WITH HER 17/10. DAUGHTER REPORTS PATIENT WAS RECENTLY AT [facility] AND THEN WENT HOME AND WENT TO [facility] AND THEN WAS DISCHARGED HOME AND HH WAS NOT SET UP. CM DISCUSSED ROLE. DAUGHTER REPORTS WHEN PATIENT WAS AT [facility] THEY WERE TRYING TO GET PATIENT TO [facility] [place] [place] BUT STATES HER INSURANCE DID NOT APPROVE IT BUT SHE IS INTERESTED IN TRYING TO GET HER THERE AT DISCHARGE SINCE SHE IS WEAK. DAUGHTER REPORTS THAT PATIENTS INSURANCE IS CURRENTLY [employer] BUT IS CHANGING TO MEDICARE ADVANTAGE HMO ON 04/27/18. CM WILL NOTIFY PRE-CERT DEPT AND CM WILL HAVE TO VERIFY IF [facility] [place] [place] IS IN NETWORK WITH NEW INSURANCE BUT WOULD CHECK. CM SENT REFERRAL TO [facility] [place] [place]. DAUGHTER REPORTS PATIENT IS ALSO WITHOUT PCP CURRENTLY DUE TO MISSING SO MANY APPTS WITH OLD PCP HE STOPPED ACCEPTING HER. CM SPOKE WITH DAUGHTER ABOUT THE SENIOR CLINIC AT [facility] AND ALSO PROVIDED WITH THE CONTACT INFORMATION. PT WAS ADMITTED WITH [facility] AND GI IS FOLLOWING AND GOING TO SCOPT PATIENT. CM WILL CONTINUE TO FOLLOW TO ASSIST NEEDED.
[2018-04-25 11:00] VITALS: BP 141/83
--- NOTE | 2018-04-25 15:15 | NUR ---
WENT TO ROOM TO EVALUATE CLIENT FOR BEHAVIOR HEALTH UNIT. TALKED WITH DAUGHTER AND CLIENT. CLIENT APPEARS APPROPRIATE FOR BEHAVIOR MANAGEMENT. WILL DISCUSS WITH BEHAVIOR HEALTH DOCTOR AND CURRENT HOSPITAL
[2018-04-25 16:39] VITALS: BP 118/94
--- NOTE | 2018-04-25 17:53 | NUR ---
ASSUMED POC AT SHIFT CHANGE. PT DAUGHTER AND GRANDSON AT BEDSIDE MOST OF THE DAY. PT HAD EGD COMPLETE WIT DR MONTERROSO TODAY, RESULTS IN CHART. PROTONIX GTT D/C'D, WILL START PO TOMORROW. PT DIET ADVANCED TOLERATED, NO N/V THIS SHIFT.ALSO NO BM THIS SHIFT THUS FAR. ATE ROLL AND A COUPLE BITES OF MEAT AT DINNER. MILD NAUSEA, ENCOURAGED TO TAKE IT SLOW AND WAIT TO EAT MORE.PT AGREES PT ANSWERING YES AND NO QUESTIONS, FOLLOWING COMMANDS. LABS NOTED. IVF INFUSING. WILL CONT TO MONITOR AND FOLLOW POC.
[2018-04-25 19:41] VITALS: BP 129/63
--- NOTE | 2018-04-25 22:17 | P ---
[facility] [place] [address] PROCEDURE REPORT Name: SERG GRISSOM Room #: 362-P ADM IN M.R.#: [id number] Admission: 04/24/18 Attend Phys: Aakash Yi MD Discharge: Date of : 43 Report #: [id number] THIS REPORT FOR: //name// CC: [facility] physician/PCP Aakash Yi MD DATE OF SERVICE: 04/25/2018 PATIENT OF: Aakash Yi MD INDICATION FOR PROCEDURE: This patient has had coffee-ground emesis of undetermined etiology. Informed consent for this procedure was obtained prior to the administration of any medication. The risks of the procedure, which include bleeding, perforation, infection, complications of sedation and the possibility I could miss something to name a few have been explained to the patient and she has indicated her consent and her daughter has consented that she have this EGD by signing. Propofol was slowly titrated before and during this procedure for patient comfort by the anesthesia service. The Olympus upper videoscope was introduced through the upper esophageal sphincter and advanced under direct visualization to the third portion of the duodenum. Findings are noted on withdrawal of the scope. The visualized portions of the duodenum appear normal. Pylorus, normal mucosa. Antrum, in the antrum of the stomach there is some erythema and edema. In the body of the stomach, there are some gastric erosions and these are most likely the source of the coffee-ground emesis this patient had. The rest of the body of the stomach, the cardia and the fundus appeared normal. The scope was withdrawn into the esophagus. The Z-line is appropriately located at the top of the gastric folds and appears normal. The esophageal mucosa is ulcerated from the Z line in multiple 3 to 4 linear esophageal ulcerations extending proximally from the Z-line for about 5 cm. The more proximal esophageal mucosa appears normal. The scope was withdrawn. The patient went to the recovery area in stable condition. She tolerated the procedure well. IMPRESSION: 1. Normal duodenum to the third portion. 2. Nonbleeding gastric erosions of the body of the stomach, the likely source of her coffee-ground emesis. 3. Distal esophageal ulcerations. The patient has not been taking her medications as instructed. RECOMMENDATIONS: My recommendations were to resume her proton pump inhibitors. She can have a diet as tolerated, but I would recommend she try to avoid [facility] [address] [place] [address] PROCEDURE REPORT Name: SERG GRISSOM Room #: 362-P [facility] IN ..#: [id number] Admission: 04/24/18 Attend Phys: Aakash Yi MD Discharge: Date of : 43 Report #: [id number] caffeine, fried foods, chocolate, nicotine, alcohol, high fat foods, tomato sauces, fruit juices and mints as these all increase gastroesophageal reflux symptoms. Thank you very much once again for allowing me to participate in her care. <ELECTRONICALLY SIGNED> By: Chichi Morgan DO 04/25/18 [id number] [id number] Chichi Morgan, /nt
[2018-04-26 01:06] LABS: GLYCOHEMOGLOBIN (HGB A1C) 12.4 % (4.8-5.6)
[2018-04-26 03:47] VITALS: BP 146/84
--- NOTE | 2018-04-26 05:55 | NUR ---
SLEPT MOST OF SHIFT. ORIENTED TO SELF AND ANSWERS YES/NO QUESTIONS APPROPRIATLY. WORKING ON GOALS AND PLAN OF CARE FOR NOC. ASSIST TO TURN EVERY TWO HOURS FOR COMFORT AND SKIN CARE. INCONTINENT OF URINE AT TIMES. PROGRESSING TOWARDS DISCHARGE GOALS SLOWLY. NO BLEEDING RECTALLY THIS SHIFT. DENIES COMPLAINTS.
[2018-04-26 06:40] LABS: ABSOLUTE NEUTROPHILS 3.6 thou/uL (1.4-8.2); BASOPHILS 0.6 % (0.0-2.0); EOSINOPHILS 2.2 % (0.0-3.0); HEMATOCRIT 37.8 % (37.0-47.0); HEMOGLOBIN 12.1 gm/dL (12.0-15.0); LYMPHOCYTES 35.8 % (24.0-44.0); MCH 28.3 pg (26.0-34.0); MCV 88.5 fL (80.0-100.0); MONOCYTES 5.7 % (1.0-8.0); PLATELET COUNT 254 thou/uL (150-400); POLYS 55.7 % (36.0-66.0); RBC 4.27 mil/uL (4.20-5.00); RDW 14.6 % (10.5-14.5); WBC 6.5 thou/uL (4.0-11.0)
[2018-04-26 06:44] LABS: CALCIUM 8.9 mg/dL (8.5-10.1); CREATININE 2.5 mg/dL (0.6-1.0); MAGNESIUM 1.5 mg/dL (1.8-2.4); POTASSIUM 3.4 mmol/L (3.5-5.1)
[2018-04-26 07:24] VITALS: BP 144/66
--- NOTE | 2018-04-26 09:53 | NUR ---
PT LEFT UNIT AT THIS TIME FOR IR IS TO HAVE GASTRIC EMPTYING STUDY. IV SALINE LOCKED AND BRIEF PUT ON.
--- NOTE | 2018-04-26 10:51 | NUR ---
TELE MONITOR REMOVED FOR GASTRIC EMPTYING TEST
[2018-04-26 14:21] VITALS: BP 147/124
--- NOTE | 2018-04-26 16:01 | NUR ---
ON-GOING ASSESSMENT: CM REVIEWED CHART AND MET WITH PATIENT AND HER DAUGHTER AT THE BEDSIDE. CM SPOKE WITH ATTENDING WHO STATES PATIENT CAN BE DISCHARGED HOME. CM WENT OT DISCUSS WITH PATIENT AND HER DAUGHTER AND DAUGHTER STATES SHE DOES NOT FEEL SAFE TAKING PATIENT HOME. DAUGHTER STATING SHE SPOKE WITH [facility] AND WAS UNDER THE UNDERSTANDING THEY WERE ACCEPTING HER AT DISCHARGE. CM DISCUSSED THERE CURRENTLY IS NOT A BED OPEN. DAUGHTER STATING SHE DOES NOT FEEL SAFE TAKING HER HOME. PT/OT VARIANCED PATIENT EARLIER DUE TO BEING OFF UNIT FOR TESTING. CM DISCUSSED WITH ATTENDING AND PT WILL STAY OVERNIGHT. [facility] MAY HAVE A BED OPEN TOMORROW IF NOT WE WILL ASSESS HOW PATIENT DOES WITH PT/OT. CM SPOKE WITH BEDSIDE RN WHO STATES SHE WILL NOTIFY DAUGHTER. CM WILL CONTINUE TO FOLLOW.
[2018-04-26 20:26] VITALS: BP 130/61
[2018-04-27 03:28] VITALS: BP 152/81
--- NOTE | 2018-04-27 05:02 | NUR ---
SLEPT MOST OF SHIFT. INCONTINENT OF URINE AT TIMES. MAINTAIN SAFE ENVIRONMENT. DENIES COMPLAINTS OF PAIN, NAUSEA, SHORTNESS OF AIR. ORIENTED TO SELF ONLY BUT DOES ANSWER YES/NO QUESTIONS. WORKING ON GOALS AND PLAN OF CARE FOR NOC. PROGRESSING TOWARDS GOALS FOR DISCHARGE OR TRANSFER TO BEHAVIORAL UNIT. CONTINUE TO ASSES CLOESLY.
[2018-04-27 07:27] VITALS: BP 151/76
--- NOTE | 2018-04-27 10:41 | NUR ---
ALERT. ORIENTED TO SELF. FAMILY AT BEDSIDE. SHE IS BEING DISCHARGED AND ADMITTED TO BEHAVIORAL HEALTH UNIT TODAY. LENCHO MILLER MANAGER, CALLED. REPORT CALLED TO GARRY.
[2018-04-27 11:04] VITALS: BP 124/64
--- NOTE | 2018-04-27 13:30 | NUR ---
on-going assessment: patient had orders to discharge to senior behavioral health unit today. family and pt agreeable.
== END 2018-04-27 11:26 | DRG 380 ==
LOC: ER 17:22 → EROBS 21:12 → 3W 21:12
PROVIDERS: Emergency Medicine; Nurse Practitioner; ADMIT Hospitalist
PROC: 0DJ08ZZ Inspection of Upper Intestinal Tract, Via Natural or Artificial Opening Endoscopic (ICD-10-PCS; principal; 2018-04-25)
DX: K22.11 Ulcer of esophagus with bleeding (principal); N17.0 Acute kidney failure with tubular necrosis; F03.91 Unspecified dementia, unspecified severity, with behavioral disturbance; E46 Unspecified protein-calorie malnutrition; I69.351 Hemiplegia and hemiparesis following cerebral infarction affecting right dominant side; D50.9 Iron deficiency anemia, unspecified; K25.4 Chronic or unspecified gastric ulcer with hemorrhage; N18.9 Chronic kidney disease, unspecified; E11.40 Type 2 diabetes mellitus with diabetic neuropathy, unspecified; I16.0 Hypertensive urgency; I12.9 Hypertensive chronic kidney disease with stage 1 through stage 4 chronic kidney disease, or unspecified chronic kidney disease; E11.22 Type 2 diabetes mellitus with diabetic chronic kidney disease; E78.5 Hyperlipidemia, unspecified; M62.84 Sarcopenia; E11.65 Type 2 diabetes mellitus with hyperglycemia; Z79.4 Long term (current) use of insulin; Z90.49 Acquired absence of other specified parts of digestive tract; Z88.0 Allergy status to penicillin; Z88.2 Allergy status to sulfonamides; Z68.36 Body mass index [BMI] 36.0-36.9, adult; Z86.010 Personal history of colon polyps; Z79.82 Long term (current) use of aspirin; Z79.899 Other long term (current) drug therapy; Z91.14 Patient's other noncompliance with medication regimen
CPT/HCPCS: 10879; 62110; 62900; 70005

== ENCOUNTER 2018-04-27 11:55 | Inpatient (IN) | payer OTHER ==
[~2018-04-27] VITALS: Ht 157.5 cm; Wt 103.4 kg
[~2018-04-27 11:55] MED LIST changes: +ARICEPT 5 MG TAB5 MG PO; +ATORVASTATIN CA40 MG PO; +COZAAR 25 MG TA25 M1 PO; +GLIPIZIDE 10 MG10 MG PO; +HYDROCODONE-ACE15 ML PO; +KEPPRA 500 MG500 M1 PO; +MAGNESIUM500 MG PO; +NOVOLIN R100 UNIT/1 SUBQ; +NYAMYC15 GM TOP; +TUMS PO
--- NOTE | 2018-04-27 12:36 | NUR ---
PT. ARRIVED FROM 3RD FLOOR AT 1150 PER W/C ACCOMPANIED BY DAUGHTER, GRANDSON AND FLOOR NURSE, NORBERT. PT. IS NONVERBAL WITH THIS R.N. ACCORDING TO HER DAUGHTER, PT. DOES NOT TALK TO PEOPLE IF SHE DOES NOT KNOW THEM, THEN SHE IS SARCASTIC. FAMILY STATES SHE FELL AT HOME SEVERAL DAYS AGO AND WAS BROUGHT IN FOR THAT. DAUGHTER REPORTS PT. COOKS (AND MONTIEL HER MEALS) SEVERAL TIMES A WEEK. SHE WAS ADMITTED HERE BECAUSE SHE IS HAVING VISUAL AND AUDITORY HALLUCINATIONS. VITALS UPON ARRIVAL ON UNIT WERE: B/P 156/67, RESP. 20, PULSE 96, TEMP 98.3. SHE IS 5 FOOT 2 1/2 INCHES TALL AND WEIGHS 228 LBS. SHE HAS TREMORS IN HER HANDS. DAUGHTER STATED THEY PUT HER ON SEIZURE MEDICATION FOR THIS BUT STATES SHE HAS NO HISTORY OF SEIZURES. FAMILY WENT TO LUNCH AND ADMISSION WILL CONTINUE WHEN THEY RETURN.
[2018-04-27 19:29] VITALS: BP 146/76
--- NOTE | 2018-04-27 22:13 | NUR ---
NEW PT TODAY. OUT WITH PEERS EARLY THIS EVENING, BUT RETURNED TO ROOM. UP TO BR WITH ASSIST VOIDING W/O DIFFICULTY QS. TOOK MEDS W/O PROBLEM. BS 165 3u INSULIN PER SS. RESTING COMFORTABLY AT THIS TIME.
[2018-04-28 01:05] VITALS: BP 146/76
[2018-04-28 01:17] VITALS: BP 146/76
--- NOTE | 2018-04-28 04:40 | NUR ---
SLEPT INTERMITTANTLY THROUGH THE NIGHT. REQUESTED SOMETHING FOR SLEEP. DOES NOT TAKE SLEEP MEDS AT HOME SHE SAYS. NOTHING ORDERED AT THIS TIME. UP TO BR OVERNIGHT WITH ASSIST.
[2018-04-28 07:40] VITALS: BP 131/62
--- NOTE | 2018-04-28 13:02 | NUR ---
ASSUMED PATIENT CARE AT 0700. PATIENT OBSERVED SITTING THE DR/GROUP ROOM AT THAT TIME. ATE ABOUT 75% OF BREAKFAST. HAD VISITORS AT 1045--DAUGHTER AND GRANDDAUGHTER. COMPLIANT WITH ALL MEDICATIONS. PARTICIPATED IN GROUP THIS A.M ., LED BY THIS NURSE. PATIENT CALM, NO BEHAVIORS DISPLAYED TO DATE THIS SHIFT. CONTNUE TO MONITOR.
[2018-04-28 19:46] VITALS: BP 123/69
--- NOTE | 2018-04-29 04:31 | NUR ---
PT AMBULATING WITH WALKER, GAIT BELT AND ASSIST X1 AND IS TOLERATING FAIR. DENIES PAIN. RESTING COMFORTABLY. NO NEEDS VOICED. WILL CONTINUE TO PROVIDE FREQUENT OBSERVATION.
[2018-04-29 07:49] VITALS: BP 174/86
[2018-04-29 13:27] LABS: URINE BILIRUBIN NEGATIVE (Negative); URINE BLOOD NEGATIVE (Negative); URINE CLARITY CLEAR; URINE COLOR YELLOW; URINE GLUCOSE-RANDOM* 3+ (Negative); URINE KETONES NEGATIVE (Negative); URINE LEUKOCYTES-REFLEX TRACE (Negative); URINE NITRITE-REFLEX NEGATIVE (Negative); URINE PROTEIN (DIPSTICK) 2+ (Negative); URINE UROBILINOGEN 0.2 E.U./dl (0.2-1.0)
[2018-04-29 13:47] LABS: CASTS None Seen /LPF (None Seen); CRYSTALS None Seen /LPF (None Seen); SQUAMOUS 0-3 Few /LPF (0-3); URINE WBC-REFLEX 6-15 Few /HPF (0-5)
[2018-04-29 13:48] LABS: BACTERIA-REFLEX 1-9 Few /HPF (None Seen); URINE RBC None Seen /HPF (0-2)
--- NOTE | 2018-04-29 15:40 | NUR ---
ASSUMED CARE OF PT AT 0700. ASSESSMENT COMPLETED. ALERT, ORIENTED TO SELF, TIME, AND PLACE. DENIES CONCERNS. DENIES PAIN. DENIES N/V/D, SOA, OR CHEST PAIN. PT ATE 100% OF BREAKFAST AND 100% OF LUNCH. ACCUCHECKS, SLIDING SCALE INSULIN GIVEN ORDERED. HTN NOTED, BP MEDS GIVEN ORDERED. UA COLLECTED AND SENT TO LAB. PT EXHIBITING CALM AND APPROPRIATE BEHAVIOR. WALKING STANDBY ASSIST WITH WALKER, UNSTEADY GAIT NOTED AND FALL PRECAUTIONS IN PLACE. PT IS CURRENTLY RESTING IN BED. WILL CONTINUE TO MONITOR.
--- NOTE | 2018-04-29 15:50 | NUR ---
DR. MOONEY INSTRUCTED TO NOTIFY HOSPITALIST ABOUT CONSISTENT HIGH BLOOD SUGARS. DR. WILLS NOTIFIED, WILL WAIT FOR NEW ORDERS.
--- NOTE | 2018-04-29 17:45 | NUR ---
NO CHANGE IN PT CONDITION. PT ATE 100% OF DINNER. INSULIN GIVEN PER SLIDING SCALE. BP MEDS GIVEN ORDERED. DENIES PAIN. DENIES ANY OTHER CONCERNS. PT IN STABLE CONDITION.
[2018-04-29 19:35] VITALS: BP 130/63
--- NOTE | 2018-04-29 23:43 | NUR ---
ASSUMED CARE OF THE PATIENT AT 2000 PM. SHE IS VERY QUIET, HAS BEEN SITTING IN THE DAYROOM EARLIER IN THE SHIFT, THEN SHE WAS ASSISTED BACK TO BED, WHERE SHE HAS BEEN SLEEPING. SHE TOOK HER MEDICATIONS WITHOUT ANY DIFFICULTY. VERY QUIET. WALKS WITH A WALKER. WILL CONTINUE TO MONITOR.
--- NOTE | 2018-04-30 04:29 | NUR ---
THE PATIENT HAS BEEN SLEEPING MOST OF THE NIGHT. RESP., EVEN, AND UNLABORED. DENIES PAIN.
--- NOTE | 2018-04-30 13:50 | NUR ---
Followup: pt now eating 100% of meals, tolerating well. No longer needs the low fat, bland, low fiber restriction but continue the carb controlled diet. No longer needs oral supplements. Hx of wt loss but suspect this has stabilized now that pt eating 100% again. Change nutrition status to low risk. Receives insulin-BG have been in 200-300s.
--- NOTE | 2018-04-30 15:17 | NUR ---
SW schedule an family therapy session with pt daughter Martinez on May 02, 2018.
--- NOTE | 2018-04-30 15:53 | NUR ---
ASSUMED CARE AT 0715. PT. CAME OUT TO BREAKFAST. TOOK MEDS WITHOUT PROBLEMS NOTED. INSULIN, PER SLIDING SCALE GIVEN ORDERED AND ALSSO THE GLARGENE ESME GIVEN ORDERED. ORIENTED TO NAME/PLACE. USES WALKER TO GET AROUND. DENIES VH/AH. HAS DENIED WANTING TO HARM SELF OR OTHERS. DAUGHTER HERE THIS MORNING. DAUGHTER SAW PTS. LUNCH AND C/O PT. DOES NOT LIKE THAT FOOD. PT. GIVEN OTHER CHOICES BY STAFF BUT DID NOT MAKE ANY DECISION TO ALTERNATE MENU CHOICES. PT. ON UNIT AT MEALS AND FOR A TIME THIS MORNING. DOES CONTINUE TO HAVE MEMORY ISSUES. SHE ASK THE SAME QUESTIONS REPEATEDLY OF STAFF. SHE CONTINUES TO SPEAK VERY LITTLE TO STAFF EVEN WHEN PROMPTED TO DO SO. DID WALK WITH OT TODAY IN [place]. ATTENDED GROUPS TODAY.
[2018-04-30 19:43] VITALS: BP 165/76
--- NOTE | 2018-05-01 06:01 | NUR ---
SLEPT THRU NIGHT, TOTAL OF 10.8HRS. BP WNL, EPISODE OF HYPERTENSION DURING DAY SHIFT 04/30. MINIMAL VERBALIZATION. COMPLIANT WITH TAKING MEDICATIONS.
[2018-05-01 07:16] VITALS: BP 172/77
--- NOTE | 2018-05-01 17:50 | NUR ---
PATIENT IS ALERT, UP AND OUT ON THE UNIT MOST OF THE DAY. INSULIN GIVEN PER DR'S ORDERS, NO S&S OF HYPER/HYPOGLYCEMIA NOTED. PATIENT IS EATING MEALS AND DRINKING FLUID WELL. PATIENT TOOK ALL MEDICATION WHOLE WITHOUT DIFFICULTY. PATIENT DENIES SUICIDAL AND HOMOCIDAL IDEATION. NO AGITATION OR AGGRESSIVE BEHAVIOR NOTED. PATIENT IS CALM, COOPERATIVE WITH CARE. AFFECT IS BRIGHT, MOOD DEPRESSED. PATIENT DENIES AUDITORY/VISUAL HALLUCINATION. PATIENT'S FAMILY VISITED, SHE BECAME SAD WHEN FAMILY LEFT. CURRENTLY SITTING IN DAY ROOM WATCHING TV, NO SIGN OF ACUTE DISTRESS NOTED, WILL MONITOR FOR SAFETY.
--- NOTE | 2018-05-01 18:06 | NUR ---
Sw attempted to have participate in group. Pt stated that she is tired and wanted to continue laying down.
--- NOTE | 2018-05-01 18:08 | NUR ---
SW met with pt daughters, and granddaughter to have a family meeting to discuss pt health. Dr. Brennan attended the meeting in discussed that pt has Dementia, and need 24/7 care. He explained that pt can no longer be at home by herself, and if she she does it will be unsafe. SW explained that pt will be hotline due to the family refusing to utilized memory care unit. SW stated that she is more than welcome to take there mother home but there has to proctol put in place where mother have an caregiver through . Daughter mention that she would have to pay for the services. Family, and Dr. Brennan decided to D/C pt on May 02, 2018. SW will follow-up with pt, and hotline services upon the day discharge.
[2018-05-01 19:38] VITALS: BP 157/78
[2018-05-02 01:30] VITALS: BP 157/78
--- NOTE | 2018-05-02 03:17 | NUR ---
PT IN BED AT CHANGE OF SHIFT. ENCOURAGED TO COME OUT OF ROOM FOR SNACKS WITH PEERS. PT REFUSED, PREFERING TO REMAIN IN BED. QUIET AND SECLUSIVE. TOOK HS MEDS ORDERED HS BS 206 10u LISPRO GIVEN. SLEPT INTERMITANTLY THROUGH THE NIGHT.
[2018-05-02 07:00] VITALS: BP 163/86
[2018-05-02] MEDS ORDERED: IRON325 PO (10:58)
--- NOTE | 2018-05-02 10:58 | NUR ---
PT WILL HAVE FAMILY MEETING LATER ON TODAY.
[2018-05-02] MEDS ORDERED: CLOPIDOGREL75 MG PO (10:59)
[2018-05-02] MEDS ORDERED: HYDRALAZINE 5050 MG PO (11:00)
[2018-05-02] MEDS ORDERED: LIPITOR40 MG PO (11:00)
--- NOTE | 2018-05-02 11:00 | NUR ---
PT SITTING IN DAY ROOM SOCIALIZING WITH OTHERS, PT HAS FLAT AFFECT, CALM. DID NOT PARTICIPATE IN MORNING ATIVITY. APPEARS TO BE DROWSEY.
[2018-05-02] MEDS ORDERED: AMLODIPINE BESYL5 M1 PO (11:01)
[2018-05-02] MEDS ORDERED: COZAAR100 MG PO (11:02)
[2018-05-02] MEDS ORDERED: NEURONTIN 300300 M1 PO (11:02)
[2018-05-02] MEDS ORDERED: CYMBALTA60 MG PO (11:03)
[2018-05-02] MEDS ORDERED: KEPPRA 500 MG500 M1 PO (11:03)
[2018-05-02] MEDS ORDERED: MAGNESIUM400 MG PO (11:05)
[2018-05-02] MEDS ORDERED: LANTUS100 UNIT/M SUBQ (11:06)
[2018-05-02] MEDS ORDERED: PROTONIX40 M1 PO (11:06)
[2018-05-02] MEDS ORDERED: GLUCAGEN1 MG/1 ML IM (11:23)
[2018-05-02 13:02] VITALS: BP 163/86
--- NOTE | 2018-05-02 15:08 | NUR ---
Patient Name: SERG GRISSOM Admission Date: 04/27/18 DISCHARGE PLAN: Pt will be discharged home with her family. Pt will not be discharged without HH. Care Assessment: Pt been diagnosed with Dementia, and need care 17/10. [facility] Level II Assessment: None Transportation: Pt will be transported by the daughter Martinez. Special Instructions/Notes: Pt will need a wheelchair for assistance with home. DISCHARGE TO FACILITY: Facility: Phone: Fax: Address: Contact Name: Phone: PCP: QUETA Psychiatrist: LOREN
--- NOTE | 2018-05-02 16:16 | NUR ---
ADAM reported hotline to [facility] concerning pt potentially financially exploited due to her daughter Martinez comment on May 01, 2018 in the family meeting that she resides on her mother income, and her mother depends on her. ADAM explained that mother blood sugar is extremely high, and asked who is preparing her food, and given medication when she left at home. Martinez stated mother refused her medicine, and she prepares her meal and sometimes pt refuse to eat. ADAM explained that pt needs to be in a memory care unit, and not left at home by herself due to her not having phone, and able to care for herself. Dr. Brennan explained the SLUMS and CANDICE assesment. Martinez stated that she knows about the medical due to her been a nurse. Martinez stated that she has to work, and sometimes she be left at home. Martinez admitted to not having a phone in the home for the pt due to her not anaswering it when she did have one. Adam explained that is unsafe due to it potentially been emergency. ADAM reported that Martinez refuse to wait another day get to her mother a wheelchair through [facility] or [employer]. Martinez that her mother needs to go home now, and she will be there after 1400 to pick the pt up. SW mention that she would have to hotline to reassure pt safety and wellbeing is safe. SW will follow-up upon discharge.
--- NOTE | 2018-05-02 17:00 | NUR ---
SW notice that pt was in the hospital. ADAM spoke with Dr. Brennan who stated that he notice pt leithargic, and he requested that daughter Martinez would not discharge her until an hospitalist is able to see her, and what is medically going on with her. ADAM will follow-up with pt upon discharge.
--- NOTE | 2018-05-02 17:18 | NUR ---
SW reported an update that pt was still in the hospital due to Dr. Brennan stating mother is leithargic, and would like an hospitatlist see her concerning her medical care. digital asset coordinator stated that she will make sure that Ana Rosa receive update information.
[2018-05-02 20:00] VITALS: BP 140/59
--- NOTE | 2018-05-03 04:34 | NUR ---
RESTED GOOD, TOOK MEDS WITH NO ISSUES, ORAL HYDRATION ENCOURAGED, CURRENTLY SITTING IN THE DINING ROOM, ABLE TO OBTAIN VITAL SIGN FOR THIS MORNING HYDRALAZINE DOSE, DENIES PAIN, VERY QUIET, MINIMAL INTERACTION NOTED, UP WITH STANDBY ASSIST WITH GAIT BELT, TOILETED WITH NO ISSUES, NO BEHAVIOR ISSUES NOTED, MONITORED.
[2018-05-03 04:37] VITALS: BP 121/66
[2018-05-03 07:16] VITALS: BP 121/64
--- NOTE | 2018-05-03 08:10 | NUR ---
CLIENT UP SITTING IN DINNING ROOM EATING BREAKFAST. DENIES ANY PAIN TODAY. STATED READY TO GO HOME TODAY.
--- NOTE | 2018-05-03 08:14 | NUR ---
Late Note 05/02/17: I spoke with Jyoti's daughter. She was upsset about the care that her mother has recieved. She stated that when her mother is discahrged she will come back and file a grievance. Listened to her concerns. She thanked me, as she felt that staff was not listening to her. I asked Dr. Brennan if he would speak to Jyoti's daughter with me, the SW was unavailable at this time. Dr. Brennan consulted the hospitalist as Jyoti was drowsy. The discahrge was cancelled. I had informed Jyoti's daughter that I wished she had spoken to me earlier as now we are looking at discharge. Perhaps if I had known of her concerns earlier, I could have addressed them at an earlier time.
[2018-05-03 08:17] VITALS: BP 121/64
--- NOTE | 2018-05-03 10:48 | NUR ---
ADAM spoke with Alondra at [facility] concerning a pt a wheelchair. Alondra stated that she looked at the pt information, and she does not see any specific factor that indicate that pt need an wheelchair. She stated that the insurance will not approve the DME device due to her ability of being able to walk with an walker or cane.
--- NOTE | 2018-05-03 11:00 | NUR ---
DAUGHTER HERE TO TEACHER BALLET MOTHER. SHE IS GETTING READY TO GO HOME. DAUGHTER WANTED TO TALK TO HOSPITALIST BEFORE LEAVING TO TALK ABOUT MEDICATIONS.
--- NOTE | 2018-05-03 12:30 | NUR ---
DISCHARGE INSTRUCTIONS READY AND EXPLAINED TO DAUGHTER AND CLIENT. STILL WAITING FOR MOM TO FINISH EATING.
--- NOTE | 2018-05-03 13:00 | NUR ---
CLIENT STILL FINISHING UP WITH LUNCH. DAUGHTER STATED SHE CAN'T WAIT FOR SO SHE IS JUST GOING TO GO AHEAD AND TAKE MOM HOME. ASSISTED CLIENT IN W/C AND TRANSPORTED OUT TO CAR WITH FAMILY.
--- NOTE | 2018-05-03 17:50 | NUR ---
SW was notified by the nurse Leandra that pt daughter transported pt home without letting the doctor see her that was requested by Dr. Brennan. The nurse stated that the daughter said she is tired of waiting, and she is going to take her mother home.
--- NOTE | 2018-05-04 13:34 | D ---
[facility] [place] [address] DISCHARGE SUMMARY Name: SERG GRISSOM Room #: 527B-B DIS IN M.R.#: [id number] Admission: 04/27/18 Attend Phys: Justo Brennan DO Discharge: 05/03/18 Date of : 43 Report #: [id number] THIS REPORT FOR: //name// CC: Justo Brennan FAM physician/PCP FAM unknown DATE OF SERVICE: 05/03/2018 ATTENDING: Justo Brennan DO INFORMATION TECHNOLOGY ANALYST: Initially was Dr. Yi. Of note, the patient's daughter requested discharge prior to her being seen by the hospitalist, Dr. Avina on the date of discharge on 05/03/2018. The nurse did proceed with discharging the patient though I had requested a hospitalist examination first for hypertension, excess lethargy from hypertension medications and then any general medical concerns. The patient's discharge diagnosis is major neurocognitive disorder likely due to cerebrovascular disease without behavioral disturbance. Also medically apparently on 05/02 urine culture result was released with a 50-100,000 colony forming unit Proteus mirabilis infection. This has not been treated at this point. However, I will call the daughter in the morning and offer to treat the infection. I believe, the patient has an appointment at [facility] on 05/07 for primary care followup. Certainly this issue should be dealt with further at that time as well. Additional comorbidities, status post cerebrovascular accident, poorly controlled diabetes mellitus with recent hemoglobin A1c of 12.4 and hypertension suboptimally controlled. REASON FOR ADMISSION: Concern for cognitive evaluation and refusal to comply with current treatment. HOSPITAL COURSE: The patient was admitted to the Geriatric Psychiatry Unit. She was generally cooperative, at times bordering on selectively mute. She lives with her daughter. They live in a house that is too big for them. They are planning to move to a smaller residence. Most of the admission was spent focusing on the patient getting appropriate support, the fact she does have a dementia and should not be left alone. The patient responded well to the milieu. Other than poor sleep the first night or two, she slept well. I did not really change the medication she had been discharged on during her medical admission. PHYSICAL EXAMINATION: VITAL SIGNS: On the day of discharge, temperature 36.5, pulse 58, respirations 16, BP 121/64 and O2 sat 97%. NEUROLOGIC: This is a well-developed, well-nourished black female and she is [facility] [address] [place] [address] DISCHARGE SUMMARY Name: SERG GRISSOM Room #: 527B-B [facility].#: [id number] Admission: 04/27/18 Attend Phys: Justo Brennan, DO Discharge: 05/03/18 Date of : 43 Report #: [id number]. Attention limited, concentration limited and speech selectively mute at times, but normal rate when she does speak and soft volume. Thought process linear limited. Thought content: No specific theme, some poverty of thought I would say. No psychomotor retardation. No psychomotor agitation. No auditory or visual type hallucinations. Denied suicidal intent or plan. Denied hopelessness or helplessness. Denied homicidal intent or plan. Memory not formally tested. The patient was alert and oriented to person, intermittently to time and generally to place. Memory known to be impaired. Insight limited. Judgment limited. Fund of knowledge below average. Her SLUMS score was 14 out of 30. PROGNOSIS: For this patient is guarded. DISCHARGE MEDICATIONS: Ferrous sulfate 325 mg twice a day after meals for iron supplementation, Plavix 75 mg p.o. daily for antiplatelet effect, hydralazine 50 mg p.o. q.8h. schedule for hypertension that should be held if blood pressure is less than 120 systolic, amlodipine 5 mg oral daily for hypertension, losartan 100 mg oral daily, gabapentin 300 mg oral daily for neuropathy, Keppra 500 mg twice per day for seizure prophylaxis, duloxetine 60 mg oral daily for depression, magnesium oxide 400 mg b.i.d., Protonix 40 mg daily for her gastric erosions and ulcerations. She is on 30 units of Lantus at night, calcium carbonate 1000 mg daily and insulin 10 units subq b.i.d. a.c. They gave her a prescription for diabetic testing supplies. PROGNOSIS: Guarded to poor given the major neurocognitive disorder, poor compliance and at this time limited social support. <ELECTRONICALLY SIGNED> By: Justo Brennan DO 05/04/18 [id number] Justo Brennan DO /nt
== END 2018-05-03 13:25 | disposition home or self-care (01) | DRG 884 ==
LOC: SBH 11:55
PROVIDERS: ADMIT Psychiatry & Neurology Psychiatry
DX: F01.51 Vascular dementia, unspecified severity, with behavioral disturbance (principal); E43 Unspecified severe protein-calorie malnutrition; Z68.41 Body mass index [BMI] 40.0-44.9, adult; F32.9 Major depressive disorder, single episode, unspecified; E11.9 Type 2 diabetes mellitus without complications; I10 Essential (primary) hypertension; E66.01 Morbid (severe) obesity due to excess calories; Z88.0 Allergy status to penicillin; Z88.2 Allergy status to sulfonamides; Z79.82 Long term (current) use of aspirin; Z79.899 Other long term (current) drug therapy; Z90.49 Acquired absence of other specified parts of digestive tract
CPT/HCPCS: 10880

== ENCOUNTER 2018-06-21 19:52 | Inpatient (IN) | payer OTHER ==
[~2018-06-21] VITALS: Ht 157.5 cm; Wt 93.9 kg
[~2018-06-21 19:52] MED LIST changes: +AMLODIPINE BESYL5 M1 PO; +CLOPIDOGREL75 MG PO; +COZAAR100 MG PO; +GLUCAGEN1 MG/1 ML IM; +HYDRALAZINE 5050 MG PO; +LIPITOR40 MG PO; +MAGNESIUM400 MG PO
[2018-06-21 19:53] VITALS: BP 183/96
[2018-06-21 20:34] LABS: BASOPHILS 0.7 % (0.0-2.0); EOSINOPHILS 1.1 % (0.0-3.0); HEMATOCRIT 35.5 % (37.0-47.0); HEMOGLOBIN 11.6 gm/dL (12.0-15.0); LYMPHOCYTES 18.5 % (24.0-44.0); MCH 29.1 pg (26.0-34.0); MCHC 32.8 g/dL (28.0-37.0); MCV 88.9 fL (80.0-100.0); PLATELET COUNT 245 thou/uL (150-400); POLYS 74.7 % (36.0-66.0); RBC 3.99 mil/uL (4.20-5.00); RDW 13.9 % (10.5-14.5); WBC 8.1 thou/uL (4.0-11.0)
[2018-06-21 20:42] LABS: CALCIUM 9.3 mg/dL (8.5-10.1); CREATININE 2.1 mg/dL (0.6-1.0); POTASSIUM 4.2 mmol/L (3.5-5.1)
[2018-06-21 20:51] LABS: TROPONIN-I 0.09 ng/mL (<0.06)
[2018-06-21 20:51] LABS: URINE BILIRUBIN NEGATIVE (Negative); URINE BLOOD 2+ (Negative); URINE CLARITY SL CLOUDY; URINE COLOR YELLOW; URINE GLUCOSE-RANDOM* 3+ (Negative); URINE KETONES NEGATIVE (Negative); URINE LEUKOCYTES-REFLEX TRACE (Negative); URINE NITRITE-REFLEX NEGATIVE (Negative); URINE PROTEIN (DIPSTICK) 3+ (Negative); URINE SPECIFIC GRAVITY 1.025 (1.005-1.035); URINE UROBILINOGEN 0.2 E.U./dl (0.2-1.0)
[2018-06-21 21:14] LABS: CASTS None Seen /LPF (None Seen); MUCUS 0-3 Light strn/LPF (None Seen); SQUAMOUS 4-10 Moderate /LPF (0-3)
[2018-06-21 21:15] LABS: URINE WBC-REFLEX 6-15 Few /HPF (0-5); WBC CLUMPS Occasional (None Seen)
[2018-06-21 21:16] LABS: BACTERIA-REFLEX 1-9 Few /HPF (None Seen); CRYSTALS None Seen /LPF (None Seen); URINE RBC 3-10 Few /HPF (0-2)
[2018-06-21 23:00] VITALS: BP 188/96
[2018-06-21 23:21] VITALS: BP 155/128
--- NOTE | 2018-06-22 01:37 | NUR ---
PT ARRIVED ON UNIT APPROXIMATELY 2325. PT ACCOMPANIED BY FAMILY. ADMISSION COMPLETED. FALL PRECAUTIONS IMPLEMENTED. ORDERS ACKNOWLEDGED. PT ALERT AND ORIENTED 1-2, SOME CONFUSION, MOSTLY NODS HEAD YES/NO. IV DRESSING C/D/I, NO SIGNS OF INFILTRATION. PT DENIES PAIN AT THIS TIME, REPORTS PAST N/V. PT CALL LIGHT WITHIN REACH. WILL CONTINUE POC UNTIL EOS.
[2018-06-22 07:38] VITALS: BP 149/87
--- NOTE | 2018-06-22 08:32 | EKG ---
[address] [address] ELECTROCARDIOGRAM REPORT Name: SERG GRISSOM Room #: 420-P ADM IN M.R.#: [id number] ������������������ Admission: 06/21/18 ������������������ Attend Phys: Justo Otero MD Discharge: ������������������ Date of : 43 Report #: [id number] ����������������������������������������������������������������� [id number] THIS REPORT FOR: //name// [facility] ED Test Date: 2018-06-21 Test Time: 20:00:00 Pat Name: SERG GRISSOM Department: Room: [facility] Gender: F Test Kitchen Home Economist: WG : 1945 Requested By: Son Muñoz Order Number: [id number] MD: Oneal Simon Measurements Intervals [place] Rate: 97 P: 37 NV: 144 QRS: 0 QRSD: 88 T: 84 QT: 366 QTc: 465 Interpretive Statements Sinus rhythm Nonspecific ST and T wave abnormality Compared to ECG 04/24/2018 17:40:32 No significant change was found Electronically Signed On 06-22-2018 8:32:07 CDT by Oneal Simon [email or web address] ��������������������������������������������� <ELECTRONICALLY SIGNED> ���������������������������������������� By: Oneal Simon MD, [facility] ��������������������������������������������� 06/22/18 0832 99 99 Oneal Simon MD, FAC /EPI
--- NOTE | 2018-06-22 12:20 | NUR ---
PT ADMITTED RELATED TO UTI, CONFUSION. CM REVIEWED CHART AND SPOKE WITH CARE TEAM. CM MET WITH PT AT BEDSIDE THIS DAY. PT IS A&O X4. CM ROLE INTRODUCED. PT INDICATED SHE LIVES IN A HOUSE WITH HER DTR AND GRANDDAUGHTER. PT INDICATED THERE ARE 8 STEPS TO ENTER AND 8 STEPS INSIDE. PT INDICATED SHE HAD USED A 4WW, FWW, AND SHOWER CHAIR TO ASSIST WITH MOBILITY ROSE GROWER. PT INDICATED SHE HAD BEEN INDEPENDENT WT ADLS [place]. PT INDICTED SHE SEES A PCP IN [place]. PT INDICATED SHE PLANS TO RETURN HOME ONCE MEDICALLY STABLE. CM TO FOLLOW INDICATED WITH DC PLANNING.
--- NOTE | 2018-06-22 12:51 | NUR ---
ASSUMED CARE OF PT AT 0700. ASSESSMENT COMPLETED. ALERT TO SELF AND SITUATION ONLY, HX DEMENTIA. ROOM AIR. HTN. ACHS, INSULIN GIVEN PER SLIDING SCALE. PT IN STABLE CONDITION. WILL CONTINUE TO MONITOR.
[2018-06-22 17:10] VITALS: BP 153/78
[2018-06-22 20:12] VITALS: BP 152/54
--- NOTE | 2018-06-23 02:34 | NUR ---
ASSUMED PT 1900. PT ALERT TO SELF AND SITUATION. REASSESSMENT COMPLETE. IV DRESSING C/D/I, NO SIGNS INFILTRATION. PT CALM AND COOPERATIVE. PT DENIES PAIN, N/V AT THIS TIME. PT CALL LIGHT WITHIN REACH. WILL CONTINUE POC UNTIL EOS.
[2018-06-23 04:23] VITALS: BP 174/86
[2018-06-23 09:52] VITALS: BP 161/73
--- NOTE | 2018-06-23 12:55 | NUR ---
ASSUMED CARE OF PT AT 0700. ASSESSMENT COMPLETED. ALERT TO SELF, PLACE, AND SITUATION. HX DEMENTIA, NOT IMPULSIVE. FALL RISK PRECAUTIONS IN PLACE. ROOM AIR. ACHS, ELEVATED BG NOTED, INSULIN GIVEN PER SLIDING SCALE. HX HTN, BP MEDS GIVEN ORDERED. PT UP TO CHAIR. ASSIST X1 WITH WALKER. NO CONCERNS AT THIS TIME. WILL CONTINUE TO MONITOR.
[2018-06-23 16:46] VITALS: BP 164/73
[2018-06-23 21:45] VITALS: BP 144/60
[2018-06-24 05:44] VITALS: BP 144/62
--- NOTE | 2018-06-24 06:21 | NUR ---
PT AMBULATING TO BATHROOM WITH ASSIST X1 AND IS TOLERATING FAIR. DENIES PAIN. RESTING COMFORTABLY. NO NEEDS VOICED. CALL LIGHT WITHIN REACH. WILL CONTINUE TO PROVIDE FREQUENT OBSERVATION.
--- NOTE | 2018-06-24 16:04 | NUR ---
ASSUMED CARE OF PT AT 0700. ASSESSMENT COMPLETED. ALERT TO SELF, SITUATION, AND PLACE. CONFUSED AND FORGETFUL AT TIMES. DENIES PAIN. ROOM AIR. HX HTN, BP MEDS GIVEN ORDERED. HX DM, ACHS, INSULIN GIVEN PER SLIDING SCALE. DAUGHTER JOSUE AT BEDSIDE THIS AFTERNOON. PT UP TO CHAIR FOR MEALTIMES. ASSIST X1 WITH WALKER. PT IN STABLE CONDITION. WILL CONTINUE TO MONITOR UNTIL EOS.
[2018-06-24 19:30] VITALS: BP 152/68
--- NOTE | 2018-06-25 04:51 | NUR ---
ASSUMED CARE AT 1900, ASSESSMENT COMPLETED. PT DENIES ANY PAIN, NAUSEA, OR SOA. HAVE ASKED MULTIPLE TIMES IF SHE NEEDS TO USE THE BATHROOM, STATES SHE DOESN'T NEED TO USE BATHROOM. IV ABX GIVEN OVERNIGHT. NO OTHER CONCERNS, WILL CONTINUE TO MONITOR.
[2018-06-25 05:00] VITALS: BP 122/46
[2018-06-25 07:45] VITALS: BP 113/61; BP 135/46
--- NOTE | 2018-06-25 12:18 | NUR ---
Assess due to high nutrition screening risk for unintentional wt loss and decreased appetite. Pt with recent hospitalizations. Admitted with UTI, aggravated with encephalopathy and hx dementia. Confused and forgetfull. Would only answer to Yes/No questions. Shook head no to oral supplements and yes to eating at least 1/2 of meal this am. Wt hx reviewed, 197-210 lb 03/2018, and now 207 lb. BG 132-216 and requires insulin. Low nutrition risk at this time. Promote intake >50%.
[2018-06-25] MEDS ORDERED: CEFUROXIME250 MG PO (12:35)
--- NOTE | 2018-06-25 14:31 | NUR ---
ASSUMED CARE AT 0700, SHIFT ASSESSMET DONE, MEDS GIVEN, VSS. DENIES ANY PAIN, NAUSEA. ATE BREAKFAST. SIITING IN THE CHAIR THIS AM. DISCHARGE ORDERS RECEIVED. TRIED TO CALL [facility], DID NOT PROFESSIONAL ADVISOR, VOICE MAIL FULL. OTHER DAUGHTER SANJEEV WAS CALLED AND SHE INFORMED SHE WILL GET IN TOUCH WITH HER SISTER AND CALL US BACK. CEMENT FINISHER HELPER MICHELLE AWARE AND AWAITING FOR FAMILY'S CALL BACK REGARDING HOME HEALTH SET UP.
[2018-06-25 16:12] VITALS: BP 135/46
[2018-06-25 17:02] VITALS: BP 135/46
--- NOTE | 2018-06-25 17:21 | NUR ---
CARE TEAM INDICATED PT IS MEDICALLY STABLE TO DISHCARGE HOME THIS DAY. PT TO HAVE [facility] PT, OT, NURSING, AID, AND SW. PT'S PCP IS DR. ALEJANDRO DE OLIVEIRA AT [facility]. PT HAS ALL RECOMMENDED DME. PT'S DTR TO PROVIDE TRANSPORT HOME THIS EVENING. NO OTHER CM INTERVENTION INDICATED AT THIS TIME. CASE CLOSED.
--- NOTE | 2018-06-25 18:22 | NUR ---
DISCHARGE ORDER RECEIVED, PERIPHERAL IV WAS TAKEN OUT. LEFT WITH DPOA DAUGHTER AT 1745.
== END 2018-06-25 18:22 | disposition home health service (06) | DRG 689 ==
LOC: ER 19:52 → EROBS 22:35 → 4E 22:35
PROVIDERS: Emergency Medicine; ADMIT Hospitalist
DX: N39.0 Urinary tract infection, site not specified (principal); E43 Unspecified severe protein-calorie malnutrition; G93.40 Encephalopathy, unspecified; E78.5 Hyperlipidemia, unspecified; F03.90 Unspecified dementia, unspecified severity, without behavioral disturbance, psychotic disturbance, mood disturbance, and anxiety; M62.84 Sarcopenia; E11.22 Type 2 diabetes mellitus with diabetic chronic kidney disease; I12.9 Hypertensive chronic kidney disease with stage 1 through stage 4 chronic kidney disease, or unspecified chronic kidney disease; D50.9 Iron deficiency anemia, unspecified; Z90.49 Acquired absence of other specified parts of digestive tract; Z79.4 Long term (current) use of insulin; Z88.2 Allergy status to sulfonamides; Z88.0 Allergy status to penicillin; Z86.73 Personal history of transient ischemic attack (TIA), and cerebral infarction without residual deficits; Z87.11 Personal history of peptic ulcer disease; Z86.14 Personal history of Methicillin resistant Staphylococcus aureus infection
CPT/HCPCS: 10084

== ENCOUNTER 2018-09-07 19:15 | Inpatient (IN) | payer OTHER ==
[~2018-09-07] VITALS: Ht 157.5 cm; Wt 91.6 kg
--- NOTE | ~2018-09-07 | HC ---
[facility] [place] [address] CONSULTATION Name: SERG GRISSOM Room #: 422-P ADM IN M.R.#: [id number] Admission: 09/08/18 ������������������ Attend Phys: Sathish Jarrell Discharge: ������������������ Date of : 43 Report #: [id number] THIS REPORT FOR: //name// CC: LOCO physician/PCP Sathish Jarrell DATE OF SERVICE: 09/08/2018 HISTORY OF PRESENT ILLNESS: The patient is a 73-year-old female, admitted with acute mental status changes. She was noted to have severe hyponatremia with sodium of 123. She was diagnosed with metabolic encephalopathy. Workup also revealed left temporal CVA, subacute chronic infarct. The patient was noted to have functional deficits with stroke, encephalopathy, and electrolyte abnormalities. We are seeing her in rehabilitation medicine consultation. PAST MEDICAL HISTORY: Includes diabetes mellitus type 2, hypertension. She has had prior CVA x 2 with noted CVA in 2016 with left-sided weakness. There is a note of some dementia, history of seizure disorder, peptic ulcer disease. MEDICATIONS: Please see the full medication listing. ALLERGIES: PENICILLIN AND SULFA. HABITS: No history of tobacco or alcohol abuse. SOCIAL HISTORY: Noted to be living at home with daughter. Daughter apparently works during the day. The patient was ambulatory, apparently utilized a walker per my history with her, although I do not know if I can trust that history. REVIEW OF SYSTEMS: She did not offer any current complaints of chest pain, shortness of breath, or abdominal discomfort. PHYSICAL EXAMINATION: GENERAL: A 73-year-old female, in no obvious distress. She is alert. VITAL SIGNS: Last recorded temperature 98.2, pulse 97, respirations 18, blood pressure 148/73. HEENT: Appeared to be benign. Poor dentition. NEUROLOGIC: Facies are symmetric. She is able to follow basic 1-step commands without difficulty. There is a definite latency to her responses. She has functional range of motion of both upper extremities, strength is probably grade 4-/5. Lower extremities, no focal calf swelling, functional range of motion, strength is grade 4-/5. DTRs are trace to 1. She does need assistance with basic transfers. [facility] [address] [place] [address] CONSULTATION Name: SERG GRISSOM Room #: 422-P [facility] IN ..#: [id number] Admission: 09/08/18 ������������������ Attend Phys: Sathish Jarrell Discharge: ������������������ Date of : 43 Report #: [id number] ASSESSMENT: This is a 73-year-old female with the following problems: 1. Left temporal lobe cerebrovascular accident, subacute chronic. 2. Metabolic encephalopathy. 3. Acute mental status changes. 4. Hyponatremia. 5. Premorbid history of cerebrovascular accident in 2016 with residual left-sided weakness. 6. Prior history of dementia per note, nevertheless living in community with family. 7. Diabetes mellitus type 2. 8. Hypertension. 9. Hyperlipidemia. PLAN: Therapy evaluations are underway. We will need to further document home support. The patient appears motivated, following commands. We will be glad to follow along with you regarding rehab therapy issues. ��������������������������������������������� ���������������������������������������� By: ��������������������������������������������� 1026 1735 Murray Bernard MD /nt
[~2018-09-07 19:15] MED LIST changes: +CEFUROXIME250 MG PO
[2018-09-07 19:21] VITALS: BP 140/104
[2018-09-07 19:59] LABS: URINE BLOOD TRACE (Negative); URINE CLARITY CLEAR; URINE COLOR YELLOW; URINE GLUCOSE-RANDOM* 3+ (Negative); URINE KETONES 1+ (Negative); URINE LEUKOCYTES-REFLEX NEGATIVE (Negative); URINE NITRITE-REFLEX NEGATIVE (Negative); URINE PROTEIN (DIPSTICK) 3+ (Negative); URINE SPECIFIC GRAVITY 1.025 (1.005-1.035); URINE UROBILINOGEN 0.2 E.U./dl (0.2-1.0)
[2018-09-07 20:04] LABS: ICTOTEST (BILI CONFIRMATORY) Negative (Negative); URINE BILIRUBIN NEGATIVE (Negative)
[2018-09-07 20:16] LABS: ABSOLUTE NEUTROPHILS 3.6 thou/uL (1.4-8.2); BASOPHILS 0.5 % (0.0-2.0); HEMATOCRIT 36.8 % (37.0-47.0); HEMOGLOBIN 12.1 gm/dL (12.0-15.0); LYMPHOCYTES 27.9 % (24.0-44.0); MCH 28.9 pg (26.0-34.0); MCHC 32.9 g/dL (28.0-37.0); MCV 87.9 fL (80.0-100.0); MONOCYTES 6.3 % (1.0-8.0); PLATELET COUNT 217 thou/uL (150-400); POLYS 61.3 % (36.0-66.0); RBC 4.19 mil/uL (4.20-5.00); RDW 13.8 % (10.5-14.5); WBC 5.8 thou/uL (4.0-11.0)
[2018-09-07 20:17] LABS: SQUAMOUS 0-3 Few /LPF (0-3); URINE RBC 0-2 Rare /HPF (0-2); URINE WBC-REFLEX 0-5 Rare /HPF (0-5)
[2018-09-07 20:18] LABS: BACTERIA-REFLEX 1-9 Few /HPF (None Seen); CASTS None Seen /LPF (None Seen); CRYSTALS None Seen /LPF (None Seen)
[2018-09-07 20:24] LABS: CALCIUM 9.7 mg/dL (8.5-10.1); CREATININE 1.9 mg/dL (0.6-1.0); POTASSIUM 3.6 mmol/L (3.5-5.1)
[2018-09-07 23:24] VITALS: BP 177/90
--- NOTE | 2018-09-07 23:25 | NUR ---
NURSE NOTIFIED OF BED ASSIGNMENT. HANDOFF TOOL PRINTED TO CCU AT THIS TIME
[2018-09-08] VITALS (7 sets, daily range): BP systolic 126–209; BP diastolic 57–118
[2018-09-08 04:09] LABS: URINE CREATININE-RANDOM* 162.8 mg/dL
--- NOTE | 2018-09-08 06:18 | NUR ---
PT ARRIVED TO UNIT APPROX 0030 IN STABLE CONDITION, TRANSFERRED FROM CART TO BED. ADMISSION AND ASSESSMENT COMPLETED, PT UNABLE TO SIGN CONSENTS R/T AMS. PT IS A&O TO SELF, SOMETIMES TIME/PLACE, BUT OTHER TIMES SHE IS CONFUSED ABOUT EVERYTHING BUT SELF. SA ON TELE WITH HR 60'S, BECAME MORE REGULAR OVER THE SHIFT; BP HAS BECOME MORE ELEVATED OVERNIGHT, LIKELY FROM IV FLUIDS; THERE IS A MARKED DIFFERENCE WHEN CHECKING BP ON THE RIGHT COMPARED TO LEFT--THE DBP ON THE LEFT IS OFTEN 100-120 VERSUS THE RIGHT BEING IN THE 90'S. SKIN IN GOOD CONDITION, PT WAS INCONT OF URINE OVERNIGHT. WILL BE ACCUCHECK AC/HS. NO OTHER CONCERNS, WILL CONTINUE TO MONITOR.
--- NOTE | 2018-09-08 11:04 | EKG ---
[address] [address] ELECTROCARDIOGRAM REPORT Name: SERG GRISSOM Room #: 210-P ADM IN M.R.#: [id number] ������������������ Admission: 09/07/18 ������������������ Attend Phys: Vitaly Rose MD Discharge: ������������������ Date of : 43 Report #: [id number] ����������������������������������������������������������������� [id number] THIS REPORT FOR: //name// [facility] ED Test Date: 2018-09-07 Test Time: 19:53:18 Pat Name: SERG GRISSOM Department: Room: 210 Gender: F Sound Person: WG : 1945 Requested By: Son Muñoz Order Number: [id number] MD: Candido Zapata Measurements Intervals [place] Rate: 65 P: 53 [place]: 140 QRS: 41 QRSD: 114 T: 105 QT: 470 QTc: 489 Interpretive Statements Sinus arrhythmia Borderline intraventricular conduction delay Low voltage, extremity leads Nonspecific T abnrm, anterolateral leads Borderline prolonged QT interval Compared to ECG 06/21/2018 20:00:00 Low QRS voltage now present Sinus rhythm no longer present ST (T wave) deviation no longer present Electronically Signed On 09-08-2018 11:04:43 CDT by Candido Zapata [email or web address] ��������������������������������������������� <ELECTRONICALLY SIGNED> ���������������������������������������� By: Candido Zapata MD ��������������������������������������������� 09/08/18 1104 52 52 Candido Zapata MD /EPI
[2018-09-09] VITALS (8 sets, daily range): BP systolic 126–210; BP diastolic 62–105
[2018-09-09 04:05] LABS: ALBUMIN 2.6 g/dL (3.4-5.0); CALCIUM 8.6 mg/dL (8.5-10.1); CREATININE 1.7 mg/dL (0.6-1.0); PHOSPHORUS 2.7 mg/dL (2.5-4.9); POTASSIUM 3.5 mmol/L (3.5-5.1)
--- NOTE | 2018-09-09 08:53 | NUR ---
RECEIVED PT'S CARE AT 1935; PT. ON BED; DURING ASSESSMENT PT. ALERT TO PERSON; ST. "I DO NOT KNOW WHY I AM HERE; I AM SERIOUS"; NO C/O PAIN; INCONTINENT; ABLE TO TURN FROM SIDE TO SIDE; SCD'S APPLIED; EDUCATED ABOUT THE IMPORTANCE OF IT; ST. UNDERSTANDING; AT 0312 SBP ON THE 180'S; CANE FLUME WATCHMAN NOTIFIED; ORDERS RECEIVED; DURING BP ASSESSMENT SBP ON THE 150'S; ABLE TO REST THROUGH THE NIGHT WITH EYES CLOSED; ASSESSMENT CHARGED; FOLLOWING POC; PASSED ON REPORT TO LENCHO MELCHOR.
--- NOTE | 2018-09-09 11:37 | NUR ---
ASSUMED CARE OF PATIENT AT 0700. ASSESSMENT CHARTED. PATIENT IS A&O TO PERSON AND FORGETFUL. PATIENT IS SR ON TELE. SHE IS INCONTINENT TO BOTH BOWEL AND BLADDER. HER BLOOD SUGARS ARE BEING CHECKED AC&HS. IV FLUIDS D/C TODAY. CONSULT PLACED FOR [facility] ALONG WITH A PT/OT EVAL. PATIENT IS BEING TRANSFERRED TO [facility], REPORT GIVEN TO LENCHO RIVERA. PATIENT TO CONTINUE WITH POC.
--- NOTE | 2018-09-09 19:53 | NUR ---
PT TRANSFERRED TO 422 FROM CCU IN STABLE CONDITION VIA CART AT 12:10. VSS. DENIES PAIN. HTN, MEDS GIVEN ORDERED. ACHS, INSULIN GIVEN PER SLIDING SCALE. DAUGHTER AND GRANDDAUGHTER AT BEDSIDE THIS AFTERNOON. CALL LIGHT WITHIN REACH. PT PROGRESSNG TOWARDS GOALS. END OF SHIFT.
--- NOTE | 2018-09-10 04:20 | NUR ---
ASSUMED CARE AT 1900, ASSESSMENT COMPLETED. PT HAS BEEN FLAT, TALKING VERY LITTLE WITH STAFF, AND LIMITING ANSWERS TO QUESTIONS TO SHAKING HER HEAD YES/NO. DENIES PAIN, BUT PT KEPT RUBBING HER HEAD THOUGH SHE HAD A HEADACHE, DENIED AND SIMPLY SAID SHE WAS TIRED. HAS BEEN INCONT OF URINE MULTIPLE TIMES OVERNIGHT, BUT HAS ASKED TO USE TOILET x2; UP WITH x1 ASSIST TO BSC, FOLLOWS DIRECTIONS POORLY. URINE HAS A VERY FOUL ODOR, AND A MILKY CONSISTENCY. HS BLOOD SUGAR 341, GAVE 9 UNITS LISPRO. NO OTHER CONCERNS, WILL CONTINUE TO MONITOR.
[2018-09-10 04:50] VITALS: BP 158/94
[2018-09-10 07:56] VITALS: BP 145/73
--- NOTE | 2018-09-10 10:54 | NUR ---
INITIAL ASSESSMENT: Pt evaluated for d/c planning needs. Reviewed chart and spoke with nurse and pt. Pt is alert and oriented. Pt lives in house with daughter and granddaughter. Pt has walker and shower bench at home. Pt has been on service with [facility] in the past. Pt's PCP is Dr Agus Kumari. Pt is hopeful to return home on d/c from hospital. Pt is being evaluated by [facility]. Will remain available to assist as needed.
[2018-09-10 12:11] LABS: CHOLESTEROL 185 mg/dL (<200); HDL CHOLESTEROL 64 mg/dL (>40); LDL CHOLESTEROL 99 mg/dL (<100); TC:HDL 2.9 Ratio (Not establshd); TRIGLYCERIDE 112 mg/dL (<150); VLDL 22 mg/dL (<40)
[2018-09-10 15:24] VITALS: BP 137/61
--- NOTE | 2018-09-10 16:21 | NUR ---
Assumed care of pt at 1700. Pt alert but slow to respond. C/o of abd pain in am. Prn pain med administered and relief obtained. Talked to pt'd daughter on the phone. Fall precautions in place. Will continue to monitor.
[2018-09-10 22:06] VITALS: BP 162/79
[2018-09-11 04:25] VITALS: BP 138/70
[2018-09-11 05:12] VITALS: BP 142/74
--- NOTE | 2018-09-11 05:26 | NUR ---
Assumed pt care at 1900. Pt alert to self/situation. Denies pain on assessment. Up with AX1,GB/RW. Approx 0430 pt had an emesis w/food particles, VS 142/74,118,100.4,95% RA,20 LSCTA denies having any stomach discomfort or nausea on assessment.Pt alert to self and lethargic.PO fluids encouraged but hesitant to. Kyra OSHEA notified N.O orders given for NS [id number] and CXR.Tylenol administered at this time will monitor effectiveness. UA pending,patient incontinent of urine x1. Resting with no distress noted will continue to monitor pt.
[2018-09-11 06:26] VITALS: BP 130/69
[2018-09-11 08:03] VITALS: BP 112/57
[2018-09-11 08:38] LABS: URINE BILIRUBIN NEGATIVE (Negative); URINE BLOOD TRACE (Negative); URINE CLARITY CLOUDY; URINE COLOR YELLOW; URINE GLUCOSE-RANDOM* NEGATIVE (Negative); URINE KETONES NEGATIVE (Negative); URINE LEUKOCYTES 3+ (Negative); URINE NITRITE NEGATIVE (Negative); URINE PROTEIN (DIPSTICK) 3+ (Negative); URINE SPECIFIC GRAVITY >= 1.030 (1.005-1.035); URINE UROBILINOGEN 0.2 E.U./dl (0.2-1.0)
[2018-09-11 09:07] LABS: SQUAMOUS 4-10 Moderate /LPF (0-3); URINE RBC 3-10 Few /HPF (0-2); URINE WBC >25 Many /HPF (0-5)
[2018-09-11 09:08] LABS: AMORPHOUS URATES Many /LPF (None Seen)
[2018-09-11 09:09] LABS: BACTERIA >30 Many /HPF (None Seen); CASTS None Seen /LPF (None Seen)
[2018-09-11 09:10] LABS: YEAST Present (None Seen)
[2018-09-11] MEDS ORDERED: ASPIRIN325 PO (09:26)
--- NOTE | 2018-09-11 10:51 | NUR ---
PT ALERT & ORIENTED TO SELF AND PLACE, CONFUSED AND DROWSEY THIS AM. IV INTACT IN R ARM INFUSING NS BOLUS. INCONT OF BLADDER. STRAIGHT CATHED FOR UA. DARK YELLOW CLOUDY URINE REURNED AND SENT TO LAB. PLANS ARE TO DC TODAY.
[2018-09-11 15:52] VITALS: BP 118/69
--- NOTE | 2018-09-11 16:09 | NUR ---
FAXED REFERRAL TO [facility] SPOKE WITH MAUREEN HAYNES SHE RECEIVED REFERRAL AND WILL REVIEW. DCP TO FOLLOW.
--- NOTE | 2018-09-11 17:35 | NUR ---
[facility] INDICATED THEY AREN'T ABLE TO ACCEPT PT. ANDRES NET WITH PT AT BEDSIDE THIS DAY AND SHE IS AGREEABLE WITH LOOKING INTO ANOTHER ACUTE REHAB SHE ASKED THAT CM CALL HER DTR. ANDRES SPOKE WITH DTR AND SHE ASKED THAT [facility] ASSESS PT FOR POSSIBLE ADMISSION. REFERRAL SENT. MAUREEN TO SEE PT TOMORROW. CM TO FOLLOW INDICATED WITH DC PLANNING.
--- NOTE | 2018-09-11 17:48 | NUR ---
PATIENT SEEN BY DR. LIMON ON 09/11/18. PT/OT NOTES REVIEWED. PATIENT IS NOT APPROPRIATE FOR ACUTE REHAB AT THIS TIME. INDUSTRIAL MANAGEMENT TEACHER INFORMED. THANK YOU FOR THIS REFERRAL.
[2018-09-11 19:54] VITALS: BP 127/65
--- NOTE | 2018-09-12 05:16 | NUR ---
TURNED/REPOSITIONED, ORAL HYDRATION OFFERED, RESTED GOOD TONIGHT, SCDS TO BLE, PERICARE GIVEN, INCONTINENT OF URINE, NO BM NOTED, SKIN INTACT, MOISTURE BARRIER APPLIED, STILL ON CONTACT PRECAUTION, MONITORED.
[2018-09-12 05:33] VITALS: BP 138/67
[2018-09-12 07:19] VITALS: BP 157/86
--- NOTE | 2018-09-12 11:04 | NUR ---
PT A&OX3, MORE ALERT AND VERBAL TODAY. HAS GOOD APPETITE AND TRANSFERING TO CHAIR/BED WITH ASSIST X1. IV INTACT IN R HAND. PLANS ARE FOR PT TO TRANSFER TO [facility] TODAY. WILL CONT POC.
[2018-09-12 16:06] VITALS: BP 136/63
--- NOTE | 2018-09-12 18:32 | NUR ---
WE WERE STILL AWAITING THERAPY TO SEE PT LATE THIS AFTERNOON. [facility] HAD ASSESSED AND INDICATED THAT THEY NEEDED MORE NOTES OF PT'S PARTICIPATING WITH THERAPY TO EVAL. CARE TEAM INDICATED THAT PT COULD DC HOME WITH HOME HEALTH. CM SPOKE WITH PT AND HER DTR AND THEY WERE INSISTANT THAT PT COULDN'T GO HOME. CM TO FOLLOW INDICATED WITH DC PLANNING.
[2018-09-12 19:28] VITALS: BP 108/70
[2018-09-13 03:09] VITALS: BP 133/62
--- NOTE | 2018-09-13 03:10 | NUR ---
RESTED GOOD BUT AWAKE NOW, FORGETFUL AND GETS AGITATED EASILY, CONTINENT TONIGHT, VOIDING IN THE TOILET, GAIT SLIGHTLY UNSTEADY. BED ALARM ON, VSS, HOURLY ROUNDING, ON ROOM AIR, OFFERED WATER WITH EACH ROUNDING, MONITORED.,
[2018-09-13 07:45] VITALS: BP 138/74
--- NOTE | 2018-09-13 10:08 | NUR ---
Assess due to length of stay. Admit with subacute/chronic CVA, VINCENT, altered mental status. Pt forgetful and confused at times. Breakfast tray observed and pt ate 100% of meal. Wt down about 8 lb over 5 mo=4% which is not significant. Consider low nutrition risk
--- NOTE | 2018-09-13 15:39 | NUR ---
UPDATED CLINICAL WAS SUBMITTED TO [facility] THIS MORNING. THEY HAVE SUBMITTED FOR INSURANCE AUTH. WE ARE AWAITING AUTH.
[2018-09-13 15:42] VITALS: BP 149/77
[2018-09-13 19:49] VITALS: BP 168/83
--- NOTE | 2018-09-13 19:57 | NUR ---
PT BACK TO BASELINE AND FEELING BETTER. UP IN CHAIR MOST OF SHIFT. AWAITING REHAB PLACEMENT.
--- NOTE | 2018-09-14 01:56 | NUR ---
Assumed CARE OF PT@1900 A&Ox3. STATED CONCERN WAS TO GET MORE SLEEP TONIGHT. VSS. POC DONE AND EVENING MEDS GIVEN. FALL PREC IN PLACE, BED IN LOW POSITION AND CALL LIGHT WITHIN REACH WILL CONTINUE TO MONITOR.
[2018-09-14 03:58] VITALS: BP 159/70
[2018-09-14 08:08] VITALS: BP 124/66
--- NOTE | 2018-09-14 10:54 | NUR ---
PT ASSESSED AT START OF SHIFT. PLEASANT, CONFUSED AND COOPERATIVE W/ CARES. BLOOD SUGAR BETTER THIS AM. NO C/O PAIN. AWAITING INSURANCE AUTH FOR REHAB.
--- NOTE | 2018-09-14 16:37 | NUR ---
WE ARE STILL AWAITING AUTH FOR PT TO GO TO [facility] SHOULD IT NOT BE RECIEVED CM NOTIFIED DTR/DPOA THAT SHE WILL DISCHARGE HOME WITH [facility]. IF AUTH IS RECIEVED CONTACT [facility] AT TO ARRANGE TRANSPORT. FAX ORDERS TO . IF NO AUTH FOR ACUTE REHAB ORDERS WILL NEED TO BE FAXED TO [facility] AT . PT HAD ALL RECOMMENDED DME.
[2018-09-14 21:30] VITALS: BP 148/67
--- NOTE | 2018-09-15 00:47 | NUR ---
ASSESSMENT COMPLETED.PT ALERT BUT PLEASNTLY CONFUSED.UP WITH ASSIST X1 AND WALKER TO BR,PT NOT COMPLIANT WITH FALL PRECAUTIONS,GETS UP ON HER OWN EACH TIME SHE NEEDS TO GO TO THE BR.PT NEEDS CONSTANT REMINDER TO USE THE CALL LIGHT.ISOLATION PRECAUTIONS MAINTAINED.CALL LIGHT WITHIN REACH.
[2018-09-15 04:35] VITALS: BP 129/65
[2018-09-15 10:37] VITALS: BP 126/43
[2018-09-15 10:46] VITALS: BP 126/43
[2018-09-15 10:47] VITALS: BP 126/43
--- NOTE | 2018-09-15 13:21 | NUR ---
PT A&OX4 CONFUSED AT TIMES. ORDERS RECEIVED TO DC TODAY, INSURANCE AUTHORIZATION NOT RECEIVED. DISCHARGE VENUS MEI ORDERS AND FACE SHEET FAXED TO [facility]. DAUGHTER JOSUE NOTIFIED AND WILL PICK PT UP AFTER WORK THIS PM. IV REMOVED FROM R HAND.
--- NOTE | 2018-09-15 19:29 | NUR ---
DC ORDERES RECEIVED. IV REMOVED FROM R HAND, DAUGHTER CAME IN AT 1840 TO FIELD OBSERVER PT, BED LABORER WHEELED PT TO MAIN ENTRANCE.
--- NOTE | 2018-09-16 10:42 | HC ---
[facility] [place] [address] CONSULTATION Name: SERG GRISSOM Room #: 422-P [facility] IN M.R.#: [id number] Admission: 09/08/18 ������������������ Attend Phys: Sathish Jarrell Discharge: 09/15/18 ������������������ Date of : 43 Report #: [id number] THIS REPORT FOR: //name// CC: LOCO physician/PCP Vitaly Rose DATE OF SERVICE: 09/08/2018 REASON FOR CONSULTATION: Acute mental status changes. REASON FOR THE PRESENTATION: Acute mental status changes. REASON FOR CONSULTATION: Hyponatremia. HISTORY OF PRESENT ILLNESS: This is obtained from the medical chart as the patient is not able to provide me with the history. She is a 73-year-old with no known previous issues with her sodium. She has chronic kidney disease with a baseline creatinine of around 1.7-1.8. She has all comorbid conditions including diabetes mellitus and hypertension. Apparently, she had been in our facility for numerous reasons. She had history of CVA. She was brought to the Emergency Room because of an acute mental status changes. Further details of the history are not available given the patient's mental status. No family members are available. Sodium was found to be 123 on presentation mandating a renal consultation. Urine specific gravity was 1.025. Urine sodium was 51. She is maintained on Cymbalta. No new medications per the patient; however, I am not really sure how accurate is this. No nonsteroidal anti-inflammatory medications. REVIEW OF SYSTEMS: Completely unobtainable given the patient's mental status. MEDICATIONS: 1. Plavix. 2. Atorvastatin. 3. Amlodipine. 4. Losartan. 5. Gabapentin. 6. Keppra. 7. Cymbalta. 8. Pantoprazole. PAST MEDICAL HISTORY: 1. Seizure disorder. 2. Hypertension. 3. Diabetes mellitus. 4. Hyperlipidemia. 5. [address]A. [facility] [address] [place] [address] CONSULTATION Name: SERG GRISSOM Room #: 422-P [facility] IN ..#: [id number] Admission: 09/08/18 ������������������ Attend Phys: Sathish Jarrell Discharge: 09/15/18 ������������������ Date of : 43 Report #: [id number] 6. Breast reduction surgery. 7. Tonsillectomy. 8. History of MRSA. FAMILY HISTORY: Unobtainable given the patient's mental status. SOCIAL HISTORY: Unobtainable given the patient's mental status. PHYSICAL EXAMINATION: GENERAL: She is awake, but disoriented. VITAL SIGNS: Blood pressure is 180/105. HEAD AND NECK: No jugular venous distention. CHEST: No crackles. CARDIOVASCULAR: No rub detected. ABDOMEN: Soft, nontender. LOWER EXTREMITIES: No edema. LABORATORY DATA: Reviewed. Sodium is 123, BUN is 24, creatinine is 1.9. Blood glucose is elevated at 348. Urine with +3 protein, +1, ketone. Osmolality is pending. ASSESSMENT, IMPRESSION AND PLAN: 1. Euvolemic hyponatremia. 2. Diabetes mellitus. 3. Hypertension. 4. Unknown baseline mental status in a patient with known cerebrovascular accidents and dementia. 5. We will start the appropriate investigations for her hyponatremia. Differential diagnosis includes prerenal, syndrome of inappropriate antidiuretic hormone. We will check her osmolalities and thyroid studies. 6. Continue with the normal saline. 7. Discontinue potential antipsychotic offending agents. 8. Follow serial sodium. 9. Continue to evaluate her mental status as per the primary team. 10. Continue to address her other comorbid conditions. ��������������������������������������������� <ELECTRONICALLY SIGNED> ���������������������������������������� By: Karli Olea MD ��������������������������������������������� 09/16/18 [id number] Karli Olea MD /nt
== END 2018-09-15 18:50 | disposition home health service (06) | DRG 64 ==
LOC: ER 19:15 → 4E 22:30 → EROBS 22:30 → ER 22:30 → 2N 22:30 → ER 23:59 → 4E 09-08 00:03 → EROBS 09-08 00:03 → 4E 09-08 00:03 → 2N 09-08 00:03 → 4E 09-09 10:59 → 2N 09-09 12:09 → 4E 09-09 12:09 → 2N 09-09 12:10 → 4E 09-09 12:10 → ER 09-09 12:10 → 4E 09-09 12:10
PROVIDERS: Emergency Medicine; Hospitalist; Nurse Practitioner Family; ADMIT Hospitalist
DX: I63.9 Cerebral infarction, unspecified (principal); G93.41 Metabolic encephalopathy; E87.1 Hypo-osmolality and hyponatremia; E78.5 Hyperlipidemia, unspecified; F03.90 Unspecified dementia, unspecified severity, without behavioral disturbance, psychotic disturbance, mood disturbance, and anxiety; G40.909 Epilepsy, unspecified, not intractable, without status epilepticus; D64.9 Anemia, unspecified; N18.9 Chronic kidney disease, unspecified; E11.22 Type 2 diabetes mellitus with diabetic chronic kidney disease; Z86.14 Personal history of Methicillin resistant Staphylococcus aureus infection; Z90.49 Acquired absence of other specified parts of digestive tract; Z87.440 Personal history of urinary (tract) infections; Z79.899 Other long term (current) drug therapy; Z88.0 Allergy status to penicillin; Z88.2 Allergy status to sulfonamides; Z87.11 Personal history of peptic ulcer disease
CPT/HCPCS: 10081; 10084; 10183; 10783

== ENCOUNTER 2018-09-22 18:13 | Inpatient (IN) | payer OTHER ==
[~2018-09-22] VITALS: Ht 157.5 cm; Wt 90.9 kg
--- NOTE | ~2018-09-22 | HC ---
[facility] [place] [address] CONSULTATION Name: SERG GRISSOM Room #: 352-P ADM IN M.R.#: [id number] Admission: 09/22/18 ������������������ Attend Phys: Moses Mcgee MD Discharge: ������������������ Date of : 44 Report #: [id number] THIS REPORT FOR: //name// CC: LOCO physician/PCP Moses Mcgee DATE OF SERVICE: 09/24/2018 HISTORY OF PRESENT ILLNESS: The patient is 73-year-old female previously known to me who was recently hospitalized with hyponatremia with a sodium of 123 and had a left temporal lobe, CVA, subacute. She was able to be discharged back to the home setting. While at home, she has had problems with not eating for approximately 3 days and was found on the floor by family. She was admitted with mental status changes, noted to have metabolic encephalopathy superimposed on her recent CVA. She does have some baseline dementia, but nevertheless has been living in the community with family. She has had an overall functional decline and we are seeing her in rehabilitation medicine consultation. She does have acute renal insufficiency superimposed on chronic kidney disease and question of urinary tract infection. PAST MEDICAL HISTORY: Includes the recent subacute CVA. She has a history of diabetes mellitus type 2, hypertension, hyperlipidemia, generalized seizure disorder, chronic iron deficiency anemia. MEDICATIONS: Please see the full medication listing. ALLERGIES: PENICILLIN AND SULFA. SOCIAL HISTORY: She has been living at home with her daughter. Daughter is a nurse who apparently works at [employer]. Daughter has ____ per the patient. The patient was ambulatory, apparently utilized a walker. I am uncertain if there are steps to get in or not. REVIEW OF SYSTEMS: Did not offer any current complaints of chest pain, shortness of breath or abdominal discomfort. PHYSICAL EXAMINATION: GENERAL: She is a 73-year-old obese -Burkinan female in no obvious distress. VITAL SIGNS: Last recorded temperature 98.3, pulse 81, respirations 16, blood pressure is 153/74. NEUROLOGIC: She follows basic 1 step commands. Functional range of motion of both of the upper extremity strength is grade 4-/5. DTRs are trace to 1. Lower extremities functional range of motion strength is grade 4-/5. DTRs are trace to 1. She is able to follow basic 1 step commands. There is some latency to her responses. Otherwise, pleasant, cooperative. [facility] [address] [address] CONSULTATION Name: SERG GRISSOM Room #: 352-P [facility] IN .R.#: [id number] Admission: 09/22/18 ������������������ Attend Phys: Moses Mcgee MD Discharge: ������������������ Date of : 44 Report #: [id number] ASSESSMENT: A 73-year-old white female with the following problems: 1. Metabolic encephalopathy. 2. Recent subacute cerebrovascular accident, left temporal lobe. 3. Acute renal insufficiency superimposed on chronic kidney disease. 4. Diabetes mellitus type 2. 5. History of cerebrovascular accidents x 2. 6. Hyperlipidemia. 7. History of seizure disorder. 8. Elevated troponin, thought likely secondary from the acute renal insufficiency. PLAN: Therapy evaluations are underway. Insurance will need to be checked regarding rehab therapy options. We will need to see how she does in her therapy evaluations. The patient is noted to have frequent falls since discharged home. ��������������������������������������������� ���������������������������������������� By: ��������������������������������������������� [id number] Murray Bernard MD /nt
[~2018-09-22 18:13] MED LIST changes: +ASPIRIN325 PO
[2018-09-22 18:14] VITALS: BP 133/59
[2018-09-22 19:44] LABS: ABSOLUTE NEUTROPHILS 6.8 thou/uL (1.4-8.2); BASOPHILS 0.3 % (0.0-2.0); EOSINOPHILS 1.4 % (0.0-3.0); HEMATOCRIT 30.6 % (37.0-47.0); HEMOGLOBIN 10.1 gm/dL (12.0-15.0); LYMPHOCYTES 17.3 % (24.0-44.0); MCH 28.9 pg (26.0-34.0); MCV 87.5 fL (80.0-100.0); MONOCYTES 2.7 % (1.0-8.0); PLATELET COUNT 347 thou/uL (150-400); POLYS 78.3 % (36.0-66.0); RBC 3.49 mil/uL (4.20-5.00); RDW 13.4 % (10.5-14.5); WBC 8.7 thou/uL (4.0-11.0)
[2018-09-22 19:47] LABS: URINE BILIRUBIN NEGATIVE (Negative); URINE BLOOD NEGATIVE (Negative); URINE CLARITY CLEAR; URINE COLOR YELLOW; URINE GLUCOSE-RANDOM* 3+ (Negative); URINE KETONES NEGATIVE (Negative); URINE LEUKOCYTES-REFLEX NEGATIVE (Negative); URINE NITRITE-REFLEX NEGATIVE (Negative); URINE PROTEIN (DIPSTICK) 3+ (Negative); URINE SPECIFIC GRAVITY 1.025 (1.005-1.035); URINE UROBILINOGEN 0.2 E.U./dl (0.2-1.0)
[2018-09-22 19:49] LABS: CALCIUM 9.5 mg/dL (8.5-10.1); CREATININE 2.4 mg/dL (0.6-1.0); POTASSIUM 4.3 mmol/L (3.5-5.1)
[2018-09-22 19:56] LABS: YEAST-REFLEX Present (None Seen)
[2018-09-22 19:57] LABS: CASTS None Seen /LPF (None Seen); SQUAMOUS 0-3 Few /LPF (0-3)
[2018-09-22 19:58] LABS: CRYSTALS None Seen /LPF (None Seen); URINE WBC-REFLEX 6-15 Few /HPF (0-5)
[2018-09-22 19:59] LABS: BACTERIA-REFLEX 1-9 Few /HPF (None Seen)
[2018-09-22 19:59] LABS: ALBUMIN 2.4 g/dL (3.4-5.0); MAGNESIUM 1.6 mg/dL (1.8-2.4); TOTAL BILIRUBIN 0.5 mg/dL (<0.1-1.0); TOTAL PROTEIN 6.8 g/dL (6.4-8.2); TROPONIN-I 0.09 ng/mL (<0.06)
[2018-09-22 21:28] VITALS: BP 147/72
[2018-09-22 21:59] VITALS: BP 172/82
--- NOTE | 2018-09-22 23:35 | NUR ---
RECIEVED PT FROM ED UPON ARRIVAL TO UNIT TO ASSESS, ALERT TO SELF PLACE AND SITUATION FAMILY AT BEDSIDE , DATA BASE COMPLETED AND CHARTED, BLOOD GLUCOSE 348 AFTER RECIEVING INSULIN IN ED, ENVIRONMENTAL ENGINEERING MANAGER SRINIVASA INFORMED AND ONETIME ORDER RECIEVED TO GIVEN LANTUS. PT ATE BOX LUNCH AND DRANK 400ML OF H20 TOLERATED WELL. BED ALARM PLACED ON FOR SAFETY. DISCUSSED PLAN OF CARE WITH PT AND FAMILY BOTH AGREEABLE.
[2018-09-23 01:59] LABS: HEMATOCRIT 30.1 % (37.0-47.0); HEMOGLOBIN 9.8 gm/dL (12.0-15.0); MCH 28.8 pg (26.0-34.0); MCHC 32.5 g/dL (28.0-37.0); MCV 88.7 fL (80.0-100.0); RBC 3.39 mil/uL (4.20-5.00); RDW 13.6 % (10.5-14.5); WBC 8.6 thou/uL (4.0-11.0)
[2018-09-23 02:13] LABS: CALCIUM 8.7 mg/dL (8.5-10.1); CREATININE 2.1 mg/dL (0.6-1.0)
[2018-09-23 02:17] LABS: POTASSIUM 5.2 mmol/L (3.5-5.1)
[2018-09-23 04:28] VITALS: BP 170/83
[2018-09-23 07:43] VITALS: BP 142/67
--- NOTE | 2018-09-23 16:17 | NUR ---
ASSUMED CARE OF PT AT APPROX 0700. PT IS ALERT AND ORIENTED TO SELF AND PLACE. PT IS MOSTLY NOT TALKING AND WILL ONLY SHAKE HER HEAD FOR MAJORITY OF DAY. ASKING IF SHE WAS OK AND IF SHE COULD TALK SHE SHOOK HER YEAD YES THEN I ASKED IF SHE COULD PLEASE ANSWER ME SHE STATED "I AM". PT DID BECOME MORE VERBAL AND CONVERSATIONAL WHEN FAMILY ARRIVED. WHEN GIVING PO MEDICATIONS THIS MORNING PT HELD MEDICATIONS IN MOUTH AND WOULD NOT DRINK WHEN ASKED TO SPIT MEDICATIONS OUT PT REFUSED AFTER CONVINCING FROM SEVERAL STAFF MEMBER PT FINALLY SWALLOWED PILLS. PT IS MUCH MORE COOPERATIVE THIS AFTERNOON. ASSESSMENT CHARTED. DENIES PAIN AND SOA. EVEN NON LABORED BREATHING. MONITORED ON TELE. BED ALARM IN PLACE TO MAINTAIN PT SAFETY. FAMILY UPDATED ON POC. WILL CONTINUE TO MONITOR.
[2018-09-23 16:32] VITALS: BP 141/66
[2018-09-23 19:52] VITALS: BP 140/58
--- NOTE | 2018-09-24 03:50 | NUR ---
ASSUMED PT CARE AROUND 1900. ORIENTED X2-3. PT HAS BEEN COOPERATIVE THIS SHIFT. NO C/O PAIN OR SOA. VSS. PT SLEPT MOST OF THE NIGHT. UP W/ ASSIST TO BSC TO VOID. TOLERATED WELL. FALL PRECAUTIONS IN PLACE. IVF INFUSING ORDERED. PROGRESSING SLOWLY TOWARD POC GOALS. WILL CONTINUE TO MONITOR FURTHER.
[2018-09-24 04:49] LABS: CALCIUM 8.5 mg/dL (8.5-10.1); CREATININE 1.8 mg/dL (0.6-1.0); MAGNESIUM 1.9 mg/dL (1.8-2.4); POTASSIUM 4.3 mmol/L (3.5-5.1)
[2018-09-24 06:12] VITALS: BP 165/45
[2018-09-24 07:37] VITALS: BP 153/74
--- NOTE | 2018-09-24 08:09 | EKG ---
[address] [address] ELECTROCARDIOGRAM REPORT Name: SERG GRISSOM Room #: 352-P ADM IN M.R.#: [id number] ������������������ Admission: 09/22/18 ������������������ Attend Phys: Moses Mgcee MD Discharge: ������������������ Date of : 43 Report #: [id number] ����������������������������������������������������������������� [id number] THIS REPORT FOR: //name// [facility] ED Test Date: 2018-09-22 Test Time: 18:22:44 Pat Name: SERG GRISSOM Department: Room: [facility] Gender: F Keeler Polygraph Operator: DEMETRA : 1945 Requested By: Nas Fierro Order Number: [id number] MD: Josh Thorne Measurements Intervals [place] Rate: 84 P: 49 DE: 138 QRS: 24 QRSD: 82 T: 106 QT: 397 QTc: 470 Interpretive Statements Sinus rhythm Low voltage, extremity leads Nonspecific T abnrm, anterolateral leads Baseline wander in lead(s) V5 Compared to ECG 09/07/2018 19:53:18 Sinus arrhythmia no longer present Electronically Signed On 09-24-2018 8:09:33 CDT by Josh Thorne [email or web address] ��������������������������������������������� <ELECTRONICALLY SIGNED> ���������������������������������������� By: Josh Thorne MD ��������������������������������������������� 09/24/18 08 21 21 Josh Thorne MD /EPI
[2018-09-24 12:23] VITALS: BP 153/74
--- NOTE | 2018-09-24 12:24 | NUR ---
ASSESSMENT: CM REVIEWEDE CHART AND MET WITH PATIENT AT THE BEDSIDE. PT REPORTS SHE LIVES AT HOME WITH HER DAUGHTER AND GRANDDAUGHTER IN A HOUSE. SHE REPORTS 8 STEPS TO ENTER THE HANDRAILS AND 8 STEPS WITH HANDRAILS ONCE INSIDE. PT REPORTS SHE NORMALLY AMBULATES INDEPENDENTLY BUT DOES HAVE A WALKER AT HOME IF NEEDED. PT REPORTS SHE HAS HAD HH IN THE PAST BUT UNSURE THE AGENCY. PT STATES SHE MAY NEED HH AT DISCHARGE AND WANTED A REFERRAL SENT TO [facility]. CM NOTIFIED [facility] AND POSSIBLE DISCHARGE LATER TODAY. CM ATTEMPTED TO REACH JOSUE HER DAUGHTER BUT UNABLE TO REACH AND VM WAS LEFT. PT IS POSSIBLE DISCHARGE LATER PENDING MRI TO RULE OUT STROKE.
[2018-09-24 15:57] VITALS: BP 182/86
[2018-09-24 18:11] LABS: FOLIC ACID 10.5 ng/mL (8.6-58.9); TSH 3.75 uIU/mL (0.358-3.740)
--- NOTE | 2018-09-24 18:19 | NUR ---
PT UP WITH ASSIST WITH WALKER/GAIT BELT...FALL PREC IN PLACE....
[2018-09-24 21:32] VITALS: BP 200/91
[2018-09-25 00:02] VITALS: BP 102/66
--- NOTE | 2018-09-25 03:21 | NUR ---
ASSUMED PT CARE AROUND 1900. A&OX2-3. PT IS FORGETFUL AND HAD SOME PERIODS OF CONFUSING DURING THE NIGHT. PT WAS OCCASSIONALLY IMPULSIVE AND TRIED TO GET OUF OF BED ON HER OWN. REORIENTATION PROVIDED. PT SLEEPING AT THIS TIME. UP W/ ASSIST TO BSC. BP ELEVATED, IMPROVED WITH SCHEDULED BP MEDICATION. FALL PRECAUTIONS IN PLACE. PROGRESSING SLOWLY TOWARD POC GOALS. WILL CONTINUE TO MONITOR FURTHER.
[2018-09-25 04:29] VITALS: BP 143/67
[2018-09-25 07:25] VITALS: BP 184/90
--- NOTE | 2018-09-25 08:58 | NUR ---
PATIENT SEEN BY DR. LIMON SEPTEMBER 24 FOR ACUTE REHAB CONSULT. PATIENT HAS A NEW CVA AND IS AN APPROPRIATE CANDIDATE FOR ACUTE REHAB ADMISSION. ELECTRICIAN ASSISTANT INFORMED. WILL ATTEMPT AUTH FOR ACUTE REHAB ADMISSION WHEN PATIENT IS MEDICALLY READY. THANK YOU FOR THIS REFERRAL.
--- NOTE | 2018-09-25 09:46 | 2DMMODE ---
[facility] [address] [place] [address] 2 D/M-MODE ECHOCARDIOGRAM Name: SERG GRISSOM Room #: 352-P ADM IN M.R.#: [id number] ������������� Admission: 09/22/18 ������������� Attend Phys: Moses Mcgee, Discharge: ��� ������������� ��� Date of : 43 Date of Service: 09/25/18 0946 �� Report #: [id number] �������� ��������������������������������������������[id number] THIS REPORT FOR: //name// APPROVED REPORT Study performed: 09/25/2018 07:57:14 EXAM: Comprehensive 2D, Doppler, and color-flow Echocardiogram Patient Location: Bedside Room #: 352 Status: routine BSA: 1.91 HR: 76 bpm BP: 143/67 mmHg Rhythm: NSR Other Information Study Quality: Adequate Indications CVA/TIA Hx: HTN, HLP, DM, CVA x2. Echo Enhancing Agent Indication: Rule out Shunt Agent(s) / Amount(s) Used: Agitated Saline 6 cc 2D Dimensions RVDd: 38.19 mm IVSd: 14.56 (7-11mm) LVOT Diam: 19.52 (18-24mm) LVDd: 41.67 mm PWd: 14.32 (7-11mm) LVDs: 27.24 (25-40mm) Aortic Root: 30.78 mm Volumes Left Atrial Volume (Systole) Single Plane 4CH: 68.25 mL Single Plane 2CH: 77.65 mL LA ESV Index: 41.00 mL/m2 Aortic Valve AoV Peak Mike.: 2.54 m/s AO Peak Gr.: 25.82 mmHg LVOT Max P.25 mmHg AO Mean Gr.: 13.30 mmHg AO V2 Mean: 1.75 m/s LVOT Max V: 1.25 m/s [facility] [place] [place] [address] 2 D/M-MODE ECHOCARDIOGRAM Name: SERG GRISSOM Room #: 352-P [facility] IN M.R.#: [id number] ������������� Admission: 09/22/18 ������������� Attend Phys: Moses Mcgee, Discharge: ��� ������������� ��� Date of : 43 Date of Service: 09/25/18 0946 �� Report #: [id number] �������� ��������������������������������������������[id number] AO V2 VTI: 56.67 cm DESMOND Vmax: 1.47 cm2 Mitral Valve E/A Ratio: 0.7 MV Decel. Time: 217.06 ms MV E Max Mike.: 0.99 m/s MV A Mike.: 1.44 m/s MV PHT: 62.95 ms IVRT: 78.43 ms Pulmonary Valve PV Peak Mike.: 1.14 m/s PV Peak Gr.: 5.24 mmHg Tricuspid Valve TR Peak Mike.: 2.50 m/s RAP Estimate: 5.00 mmHg TR Peak Gr.: 25.04 mmHg PA Pressure: 30.00 mmHg Left Ventricle The left ventricle is normal size. There is normal LV segmental wall motion. Moderate concentric left ventricular hypertrophy. Left ventricular systolic function is normal. LVEF is 60-65%. Mild diastolic dysfunction is present (impaired relaxation pattern). Right Ventricle The right ventricle is normal size. The right ventricular systolic function is normal. Atria Left atrium is moderately dilated. No shunting noted with contrast bubble injection. The right atrium size is normal. Aortic Valve Aortic valve is moderately calcified. No aortic regurgitation is present. There is mild valvular aortic stenosis. Calculated aortic valve area is 1.5 cm2 with maximum pressure gradient of 26 mmHg and mean pressure gradient of 14 mmHg. Mitral Valve The mitral valve is normal in structure. Moderate mitral annular calcification. Trace mitral regurgitation. No evidence of mitral valve stenosis. Tricuspid Valve [facility] [address] [place] [address] 2 D/M-MODE ECHOCARDIOGRAM Name: SERG GRISSOM Room #: 352-P [facility] IN [facility]#: [id number] ������������� Admission: 09/22/18 ������������� Attend Phys: Moses Mcgee, Discharge: ��� ������������� ��� Date of : 43 Date of Service: 09/25/18 0946 �� Report #: [id number] �������� ��������������������������������������������[id number] The tricuspid valve is normal in structure. Trace tricuspid regurgitation. Estimated PAP is 30mmHg. Pulmonic Valve The pulmonary valve is normal in structure. Mild pulmonic regurgitation. Great Vessels The aortic root is normal in size. Ascending aorta is not well visualized. IVC is normal in size and collapses >50% with inspiration. Pericardium Trivial pericardial effusion noted. <Conclusion> The left ventricle is normal size. LVEF is 60-65%. Left atrium is moderately dilated. No shunting noted with contrast bubble injection. The right atrium size is normal. Aortic valve is moderately calcified. There is mild valvular aortic stenosis. Calculated aortic valve area is 1.5 cm2 with maximum pressure gradient of 26 mmHg and mean pressure gradient of 14 mmHg. The mitral valve is normal in structure. Moderate mitral annular calcification. Trace mitral regurgitation. The tricuspid valve is normal in structure. Trace tricuspid regurgitation. Estimated PAP is 30mmHg. The pulmonary valve is normal in structure. Mild pulmonic regurgitation. Trivial pericardial effusion noted. ��������������������������������������������� <ELECTRONICALLY SIGNED> ���������������������������������������� By: Sanjay Ivey MD ��������������������������������������������� 09/25/1846 5 Sanjay Ivey MD /INF
[2018-09-25 11:41] LABS: CALCIUM 9.1 mg/dL (8.5-10.1); CREATININE 1.6 mg/dL (0.6-1.0); POTASSIUM 4.3 mmol/L (3.5-5.1)
--- NOTE | 2018-09-25 13:51 | NUR ---
ON-GOING ASSESSMENT: CM REVIEWED CHART AND MET WITH PATIENT AT THE BEDSIDE. CM DISCUSSED DISCHARGE PLANS. PT REPORTS SHE FEELS SHE WOULD REALLY BENEFIT FROM ACUTE REHAB AND WANTS TO SEE IF INSURANCE WILL APPROVE IT. CM NOTIFIED [employer] ON 5N TO SUBMIT FOR INSURANCE AUTH. CM ALSO SPOKE WITH PATIENTS DAUGHTER JOSUE TO UPDATE. 5N SUBMITTING FOR AUTH, CM WILL CONTINUE TO FOLLOW TO ASSIST NEEDED.
[2018-09-25] MEDS ORDERED: ASPIRIN325 PO (13:53)
[2018-09-25] MEDS ORDERED: VITAMIN B-6100 MG PO (13:53)
[2018-09-25] MEDS ORDERED: NAMENDA 5 MG TAB5 M1 PO (13:53)
[2018-09-25] MEDS ORDERED: NORVASC10 MG PO (13:53)
[2018-09-25] MEDS ORDERED: TOPROL XL25 MG PO (13:53)
[2018-09-25] MEDS ORDERED: FLUCONAZOLE 10100 MG PO (13:53)
[2018-09-25 15:49] LABS: HEMATOCRIT 28.2 % (37.0-47.0); HEMOGLOBIN 9.4 gm/dL (12.0-15.0); MCH 29.3 pg (26.0-34.0); MCHC 33.4 g/dL (28.0-37.0); MCV 87.7 fL (80.0-100.0); RBC 3.21 mil/uL (4.20-5.00); RDW 13.7 % (10.5-14.5); WBC 6.4 thou/uL (4.0-11.0)
[2018-09-25 19:30] VITALS: BP 171/86
[2018-09-26 04:10] VITALS: BP 148/75
--- NOTE | 2018-09-26 04:41 | NUR ---
PATIENT IS ALERT TO SELF, TIME AND SITUATION. PATIENT IS UP TIMES ONE TO BSC. PATIENT IS NSR ON TELE. PATIENTS LBM WAS THE . PATIENT IS PENDING DISCHARGE TO REHAB TODAY. PATIENT LIVES AT HOME WITH DAUGHTER. PATIENTS MRI (+) FOR CVA. PATIENT HAD 2 PREVIOUS STROKES. NO NIH AT THIS TIME. PATIENTS BLOOD PRESSURE TREATED WITH SCHEDULED BLOOD PRESSURE MEDICATION. PATIENT DENIES PAIN. PATIENT IS RESTING COMFORTABLY IN BED. WCM. PATIENT IS PROGRESSING TO GOALS.
[2018-09-26 07:09] LABS: ANTI-DNA SCREEN <1 IU/mL (0-9); ANTI-RNP <0.2 AI (0.0-0.9)
[2018-09-26 07:31] VITALS: BP 156/80
--- NOTE | 2018-09-26 12:02 | NUR ---
SENIOR LEAD JAVA DEVELOPER INFORMED BY FLOWER ARRANGER TODAY THAT PATIENT HAS DECIDED TO [facility]. AUTHORIATION REQUEST CANCELED WITH PATIENT'S INSURNACE.
--- NOTE | 2018-09-26 14:41 | NUR ---
on-going assessment: ANDRES SPOKE WITH Bambi HAYNES WHO STATES SHE FOUND THAT ACCORDING TO PATIENTS INSURANCE POLICY PATIENT HAS A 300/DAY COPAY THE FIRST 5 DAYS THEN IT IS 100 PERCENT COVERED AFTER THAT FOR ACUTE REHAB. CM REACHED OUT TO PATIENTS DAUGHTER JOSUE TO NOTIFY HER AND SHE WAS VERY UPSET STATING THEY CANNOT DO THAT. CM DISCUSSED THE OTHER OPTIONS WOULD BE TO CHECK INTO SNF OR HH. DAUGHTER IRRITABLE AND STATING HH DOES NOT WORK SHE IS NOT COMPLIANT WITH IT AND NEEDS TO GO TO A FACILITY. CM DISCUSSED THAT A SNF LIST COULD BE PROVIDED TO THEM FOR THEM TO CHOSE FACILTIIES THAT REFERRALS COULD BE FAXED TO AND THEN INSURANCE AUTH WOULD HAVE TO BE OBTAINED. PATIENT WILL ALSO LIKELY REQUIRE A LEVEL II PRIOR TO DISCHARGING DUE TO BEING ON [facility] REC[facility]LY. DAUGHTER VERY UPSET STATING SHE IS DRIVING AND WILL BE AT THE HOSPITAL LATER AND HUNG UP. CM SPOKE WITH BEDSIDE RN TO NOTIFY CM WHEN DAUGHTER ARRIVES. CM LEFT LIST OF SNF AT PATIENTS BEDSIDE FOR THEM TO REVIEW. CM WILL CONTINUE TO FOLLOW TO ASSIST NEEDED.
[2018-09-26 15:16] VITALS: BP 171/90
--- NOTE | 2018-09-26 16:02 | NUR ---
Patient alert and oriented today. Patient up with physical therapy and walked around hallway this afternoon. SBP was 130's when checked to give hydralazine pill; patient refused to wake up from nap to sit up and take the hydralazine pill. Patient remains on room air. Patient waiting for rehab or to go to a skilled facility, but case management has yet to hear back from patients daughter. Nut much progress toward plan of care as blood sugar was 322 at lunch, and patients SBP are still high.
[2018-09-26 19:31] VITALS: BP 170/71
[2018-09-27 07:34] VITALS: BP 174/80
--- NOTE | 2018-09-27 15:53 | NUR ---
Assumed care at 0700 this AM. Patient has been awake, alert and oriented. Patient has been interactive with care today, asking about her medications when given and appears to know what they are when told. Patient high BP still being treated with PO hydralazine. Waiting on placement to a skilled facility at this time per case management update from yesterday. Progress being made toward plan of care.
[2018-09-27 16:10] VITALS: BP 177/85
[2018-09-27 19:48] VITALS: BP 174/84
[2018-09-28 04:05] VITALS: BP 161/80
[2018-09-28 07:28] VITALS: BP 149/78
[2018-09-28 09:01] LABS: HEMATOCRIT 26.8 % (37.0-47.0); HEMOGLOBIN 8.8 gm/dL (12.0-15.0); MCH 28.7 pg (26.0-34.0); MCHC 32.7 g/dL (28.0-37.0); MCV 87.8 fL (80.0-100.0); RBC 3.05 mil/uL (4.20-5.00); RDW 14.1 % (10.5-14.5); WBC 6.3 thou/uL (4.0-11.0)
[2018-09-28 09:12] LABS: CALCIUM 8.8 mg/dL (8.5-10.1); CREATININE 1.8 mg/dL (0.6-1.0); POTASSIUM 4.4 mmol/L (3.5-5.1)
[2018-09-28 15:02] VITALS: BP 130/48
--- NOTE | 2018-09-28 16:45 | NUR ---
Assumed care of pt at 0700. pt aox2 in no acute distress. excellent appetite. ambulated around hallway with physical therapy. many family members at bedside, voicing many concerns. addressed to best of my abilities/scope. anticipating d/c to SNF once selected by family.
[2018-09-28 19:50] VITALS: BP 138/63
[2018-09-29 04:06] VITALS: BP 139/66
[2018-09-29 07:37] VITALS: BP 183/94
--- NOTE | 2018-09-29 07:44 | NUR ---
PATIENT IS ALERT TO SELF AND TIME. PATIENT IS UP TIMES ONE WITH WALKER TO BSC. PATIENT IS ROOM AIR. PATIENT IS (+) FOR 3RD STROKE. PATIENT IS PENDING PLACEMENT. CM WORKING WITH FAMILY. PATIENT IS NSR ON TELE OCCATIONAL PAUSE. NO NIH ORDERED. PAtient DEINES PAIN. PATIENT IS RESTING COMFORTABLY IN BED WCM. PATIENT IS PRGRESSING TO GOALS
--- NOTE | 2018-09-29 13:54 | NUR ---
Assumed care of Pt at 0700. Pt AOx2 in no distress. Up to chair for most of day. good appetite. no bm overnight - second dose of miralax given. uneventful of telemetry. anticipating d/c pending placement.
[2018-09-29 16:41] VITALS: BP 193/103
[2018-09-29 19:38] VITALS: BP 149/75
--- NOTE | 2018-09-30 03:58 | NUR ---
PATIENT IS ALERT TO SELF SITUATION AND TIME. PATIENT LBM WAS THE 6TH. PATIENT IS TIMES ONE WITH WALKER. PATIENT USES THE BSC. PATEINT IS NSR ON TELE. PATIENT OCCATIONALLY BRADYS AT HS BUT QUICKLY RECOVERS. PATIENT HAD 3RD STROKE. NO NIH. CURRENTLY PENDING PLACE ONCE FAMILY APPROVES. PATIENT DENEIS PAIN. PATIENT IS RESTING COMFORTABLY IN BED. WCM. PATIENT IS PROGRESSING TO GOALS.
[2018-09-30 04:00] VITALS: BP 155/86
[2018-09-30 05:47] LABS: HEMATOCRIT 25.4 % (37.0-47.0); HEMOGLOBIN 8.4 gm/dL (12.0-15.0); MCH 29.3 pg (26.0-34.0); MCHC 33.2 g/dL (28.0-37.0); MCV 88.5 fL (80.0-100.0); RBC 2.87 mil/uL (4.20-5.00); RDW 13.7 % (10.5-14.5); WBC 5.9 thou/uL (4.0-11.0)
[2018-09-30 06:20] LABS: ALBUMIN 2.1 g/dL (3.4-5.0); CALCIUM 8.7 mg/dL (8.5-10.1); CREATININE 1.7 mg/dL (0.6-1.0); POTASSIUM 4.9 mmol/L (3.5-5.1); TOTAL BILIRUBIN 0.1 mg/dL (<0.1-1.0)
[2018-09-30 08:12] VITALS: BP 150/73
[2018-09-30 16:15] VITALS: BP 159/61
[2018-09-30 19:55] VITALS: BP 107/57
[2018-09-30 20:00] VITALS: BP 182/67
--- NOTE | 2018-09-30 20:04 | NUR ---
Assumed care at 0700 this AM. Fluids dc'd this AM per orders. Patient up to toilet and sat in chair most of the day. Patient tolerating activity well. Family at bedside to visit. Patient's daughter said she would administer a bath. Patient downgraded to med-surg status this evening. Progress made toward plan of care goals.
--- NOTE | 2018-09-30 22:03 | NUR ---
ASSUMED PT CARE AROUND 1900. ORIENTED X2-3, FORGETFUL. OCCASSIONALLY IMPULSIVE WHEN NEEDS TO GO TO BTR. DENIES ANY PAIN OR SOA. BP ELEVATED. GIVEN SCHEDULED BP MEDICATION. PT RESTING COMFORTABLY IN BED. UP TO BSC TO VOID. FALL PRECAUTIONS IN PLACE. REPORT CALLED TO RN ON . DTR JOSUE NOTIFIED OF PT TRANSFER TO MED/SURG UNIT. PT MOVED TO ROOM 461 AROUND 2200.
[2018-09-30 22:16] VITALS: BP 160/68
--- NOTE | 2018-10-01 03:33 | NUR ---
ASSUMED CARE OF PT AT 2200HRS. PT IS ALERT BUT ONLY ORIENTED TO PERSON AND PLACE. VITAL SIGN IS STABLE AND NO OTHER S/S OF ACUTE DISTRESS. FALL PRECAUTION IN PLACE. PT WAS ABLE TO GET COMFORTABLE AND SLEEP PART OF THE SHIFT. WILL CONTINUE TO MONITOR.
[2018-10-01 04:21] VITALS: BP 159/72
[2018-10-01 05:59] LABS: HEMOGLOBIN 8.2 gm/dL (12.0-15.0); MCH 28.8 pg (26.0-34.0); MCV 87.2 fL (80.0-100.0); RBC 2.86 mil/uL (4.20-5.00); RDW 13.8 % (10.5-14.5); WBC 5.3 thou/uL (4.0-11.0)
[2018-10-01 06:13] LABS: ALBUMIN 2.3 g/dL (3.4-5.0); CALCIUM 9.3 mg/dL (8.5-10.1); CREATININE 1.8 mg/dL (0.6-1.0); PHOSPHORUS 3.8 mg/dL (2.5-4.9); POTASSIUM 4.5 mmol/L (3.5-5.1)
[2018-10-01 08:00] VITALS: BP 148/70
--- NOTE | 2018-10-01 10:34 | NUR ---
Nutrition: pt admitted with AMS, recurrent ischemic CVA, VINCENT. Encephalophathy improving. Weights stable. Eating very well on carb controlled diet. BG 167-278 on insulin glargine and SSI. Pending placement. Low nutrition risk.
[2018-10-01 15:00] VITALS: BP 142/53
--- NOTE | 2018-10-01 16:21 | NUR ---
DISCHARGE PLANNING. POST ACUTE RECOMMENDED AT DISCHARGE. LEVEL II IN PROCESS PER UNIT SW. REFERRAL FAXED TO [facility] FOR POST ACUTE PLACEMENT NEEDS. CALL PLACED TO ALL ADMISSIONS COORDINATORS TO NOTIFY. FOLLOWING TO ASSIST WITH DISCHARGE NEEDS.
--- NOTE | 2018-10-01 16:37 | NUR ---
CM FOLLOWED UP WITH PT AND DTR THIS AFTERNOON AT BEDSIDE. DTR ASKED THAT REFERRALS BE SENT TO [facility], AND [facility]. CM STARTED LEVEL 2 SCREENING PAPERWORK IT WILL BE SENT IN TOMORROW. CM TO FOLLOW INDICATED WITH DC PLANNING.
--- NOTE | 2018-10-01 19:17 | NUR ---
PATIENT ALERT X2 WITH FLAT AFFECT. UP WITH MINIMAL ASSIST X1 WITH WALKER. PROGRESSING TOWARDS GOALS WITH PLANS TO DC TO REHAB WAITING FOR INSURANCE. FAMILY BEDSIDE AT DINNER AND TOOK PATIENT TO BATHROOM STATING THEY ARE NURSES AND KNOW WHAT THEY ARE DOING. EDUCATED FAMILY ON FALL PRECAUTIONS. FALL PRECAUTIONS REMAIN IN PLACE. CALLS FOR ASSISTANCE.
[2018-10-01 20:19] VITALS: BP 132/62
--- NOTE | 2018-10-02 03:02 | NUR ---
ASSUMED CARE OF PT AT 1900HRS. PT IS ALERT AND ORIENTED TO SELF ONLY. PT WAS CONTINENT THIS SHIFT. PT WAS CALM AND COOPERATIVE. PT WAS COMFORTABLE AND SLEEP PART OF THE SHIFT. NO S/S OF ACUTE DISTRESS. WILL CONTINUE TO MONITOR.
[2018-10-02 03:56] VITALS: BP 119/104
[2018-10-02 07:30] VITALS: BP 147/59
[2018-10-02 13:37] VITALS: BP 135/55
--- NOTE | 2018-10-02 16:07 | NUR ---
CM COMPLETED LEVEL II SCREENING TO [facility] THIS DAY. [facility] INDICATED THAT THEY ARE ABLE TO ACCEPT PT BUT WOULD NEED TO SUBMIT FOR AUTH. REFERRAL RESENT TO [facility] FOR REVIEW LIAISON IS TO DO AN ONSIGHT. CM FOLLOWING INDICATED WITH DC PLANNING.
[2018-10-02 19:55] VITALS: BP 126/57
--- NOTE | 2018-10-02 20:00 | NUR ---
Received awake on bed. Due medications given as prescribed- able to swallow meds w/o difficulty. With SL at L FA. On blood sugar monitoring, on moderate SS insulin- given as prescribed. Pt A+Ox2-3. On room air. Maintained on isolation d/t MRSA. Vital signs stable. Falls risk- falls bundle in place. Pt able to go to the bathroom w/ gait belt and walker. A/w rehab placement.
[2018-10-02 23:54] VITALS: BP 142/61
[2018-10-03 04:52] VITALS: BP 124/98
--- NOTE | 2018-10-03 05:29 | NUR ---
Assumed care at 1845. Pt resting in bed. AOX2. VSS. Pt denies pain. Daughter is a bedside. Daughter is the DPOA she complained that she wasnt getting updates on her mothers treatments timely. She stated that the last time her mother had a stroke at the hospital she wasnt notified. Provided her with the unit phone number and informed her that l would be passing on this message. No identified needs at the moment. Will continue to monitor.
[2018-10-03 07:38] VITALS: BP 145/62
[2018-10-03 14:21] VITALS: BP 148/67
--- NOTE | 2018-10-03 16:07 | NUR ---
[facility] EMAILED BACK WITH A FEW CORRECTIONS THEY NEEDED. CORRECTIONS WERE MADE AND SCREENING WAS RESUBMITTED VIA EMAIL. CM CALLED AND RECIEVED EMAIL CONFIRMATION OF IT'S RECIEPT. [facility] CAN ACCEPT PT ONCE INSURANCE AUTH AND AND LEVEL II SCREENING ARE OBTAININED. CM TO FOLLOW INDICATED WITH DC PLANNING.
[2018-10-03 20:08] VITALS: BP 142/69
--- NOTE | 2018-10-03 21:41 | NUR ---
Received awake on bed. Due medications given as prescribed. A+Ox2. On seizure precaution- none noted the whole shift. On room air. On blood sugar monitoring- with SS- moderate scale- given as precribed. Assisted in ADLs. With SL at L FA. Maintained on isolation d/t MRSA. Vital signs stable the whole shift. Able to use walker to the bathroom. Still a/w Level 2 rehab placement. Night staff informed re: daughter getting upset yesterday as updates were not given to her, did not receive any calls from the daughter the whole day today and unable to call her today to give her updates as samuels was very busy today, night staff to inform other shifts.
--- NOTE | 2018-10-04 04:22 | NUR ---
ASSUMED CARE OF PT AT 1900HRS. PT IS ALERT BUT ONLY ORIENTED TO SELF AND PLACE. PT CAN BE FORGETFUL AND IMPULSIVE. FALL PRECAUTION IN PLACE. PT WAS ABLE TO SLEEP THIS SHIFT. NO OTHER S/S OF ACUTE DISTRESS. WILL CONTINUE TO MONITOR.
[2018-10-04 08:28] VITALS: BP 137/77
--- NOTE | 2018-10-04 14:00 | NUR ---
TOWARDS POC PT A/O X2, CALM, COOPERATIVE. VSS, AFEBRILE. DENIES PAIN. FALL BUNDLE IN PLACE. ISO ,MAINTAINED. WILL CONTINUE TO MONITOR.
[2018-10-04 14:37] VITALS: BP 135/75
[2018-10-04 20:29] VITALS: BP 141/62
--- NOTE | 2018-10-05 07:51 | NUR ---
Assumed care at 1845. Pt resting in bed. AOX2/3. VSS. No identified needs at the moment. Call light within reach. Will continue to monitor.
--- NOTE | 2018-10-05 07:58 | NUR ---
Assumed care at 1845. Pt resting in bed. AOX2/3. VSS. No identified needs at the moment. Call light within reach. Will continue to monitor.
[2018-10-05 08:20] VITALS: BP 144/85
--- NOTE | 2018-10-05 10:14 | NUR ---
TOWARDS POC PT A/0 X2, CALM, COOPERATIVE. DENIES PAIN. NO CONCERNS VOICED, WILL CONTINUE TO MONITOR.
--- NOTE | 2018-10-05 14:38 | NUR ---
COLIN GAVE LEVEL II SCREENING APPROVIAL TODAY. [facility] HAS AUTH. THEY ARE ABLE TO ACCEPT PT THIS DAY. CM NOTIFIED PT AND HER DTR DPOA, BOTH ARE AWARE AND AGREEABLE. [facility] TRANSPORT ARRANGED FOR [phone]. CHART COPY MADE AND ORDERS TO BE FAXED LEVEL II SCREENING FAXED OVER. REPORT TO BE CALLED TO . NO OTHER CM INTERVETNION INDICATED. CASE CLOSED.
== END 2018-10-05 15:32 | DRG 64 ==
LOC: ER 18:13 → EROBS 20:14 → 3W 20:14 → 4W 09-30 22:02
PROVIDERS: Emergency Medicine; Hospitalist; Internal Medicine; Nurse Practitioner; Psychiatry & Neurology Neurology; ADMIT Internal Medicine
DX: I63.9 Cerebral infarction, unspecified (principal); G93.41 Metabolic encephalopathy; N17.9 Acute kidney failure, unspecified; N39.0 Urinary tract infection, site not specified; G40.909 Epilepsy, unspecified, not intractable, without status epilepticus; E78.5 Hyperlipidemia, unspecified; E83.42 Hypomagnesemia; E11.22 Type 2 diabetes mellitus with diabetic chronic kidney disease; N18.9 Chronic kidney disease, unspecified; I12.9 Hypertensive chronic kidney disease with stage 1 through stage 4 chronic kidney disease, or unspecified chronic kidney disease; E11.65 Type 2 diabetes mellitus with hyperglycemia; D50.9 Iron deficiency anemia, unspecified; D63.8 Anemia in other chronic diseases classified elsewhere; R41.0 Disorientation, unspecified; Z87.11 Personal history of peptic ulcer disease; Z90.49 Acquired absence of other specified parts of digestive tract; Z88.0 Allergy status to penicillin; Z88.2 Allergy status to sulfonamides
CPT/HCPCS: 10040; 10045; 10879

== ENCOUNTER 2018-10-15 17:38 | Inpatient (IN) | payer OTHER ==
[~2018-10-15] VITALS: Ht 157.5 cm; Wt 99.8 kg
[~2018-10-15 17:38] MED LIST changes: +FLUCONAZOLE 10100 MG PO; +NAMENDA 5 MG TAB5 M1 PO; +NORVASC10 MG PO; +TOPROL XL25 MG PO; +VITAMIN B-6100 MG PO
[2018-10-15 17:39] VITALS: BP 101/78
[2018-10-15 20:12] LABS: ABSOLUTE NEUTROPHILS 5.3 thou/uL (1.4-8.2); BASOPHILS 0.9 % (0.0-2.0); EOSINOPHILS 2.5 % (0.0-3.0); HEMATOCRIT 25.2 % (37.0-47.0); HEMOGLOBIN 8.1 gm/dL (12.0-15.0); MCH 29.1 pg (26.0-34.0); MCHC 32.3 g/dL (28.0-37.0); MCV 90.1 fL (80.0-100.0); MONOCYTES 7.1 % (1.0-8.0); PLATELET COUNT 239 thou/uL (150-400); POLYS 66.5 % (36.0-66.0); RDW 15.5 % (10.5-14.5); WBC 7.9 thou/uL (4.0-11.0)
[2018-10-15 20:20] LABS: CALCIUM 9.1 mg/dL (8.5-10.1); CREATININE 2.7 mg/dL (0.6-1.0); POTASSIUM 4.6 mmol/L (3.5-5.1)
[2018-10-15 20:26] LABS: ALBUMIN 2.9 g/dL (3.4-5.0); TOTAL BILIRUBIN 0.2 mg/dL (<0.1-1.0); TOTAL PROTEIN 6.7 g/dL (6.4-8.2)
[2018-10-15 20:53] LABS: URINE BILIRUBIN NEGATIVE (Negative); URINE BLOOD NEGATIVE (Negative); URINE CLARITY CLEAR; URINE COLOR YELLOW; URINE GLUCOSE-RANDOM* 3+ (Negative); URINE KETONES NEGATIVE (Negative); URINE LEUKOCYTES-REFLEX NEGATIVE (Negative); URINE NITRITE-REFLEX NEGATIVE (Negative); URINE PROTEIN (DIPSTICK) 2+ (Negative); URINE UROBILINOGEN 0.2 E.U./dl (0.2-1.0)
[2018-10-15 21:22] LABS: BACTERIA-REFLEX 1-9 Few /HPF (None Seen); CASTS None Seen /LPF (None Seen); CRYSTALS None Seen /LPF (None Seen); MUCUS 0-3 Light strn/LPF (None Seen); SQUAMOUS 0-3 Few /LPF (0-3); URINE RBC 0-2 Rare /HPF (0-2); URINE WBC-REFLEX 0-5 Rare /HPF (0-5)
--- NOTE | 2018-10-15 23:50 | NUR ---
[address] PT OF DR RODRIGUEZ ADMITTD TO CCU FROM ER WITH DX OF HIGH BLOOD SUGARS AND LOW O2 SAT. PT CURRENTLY IS NONVERBAL BUT FOLLOWS ALL COMMANDS MEDEROS AND NOD APPROP. MONITOR SHOWS JUNCTIONAL RHYTHM RATE OF 38. WILL CONT TO MONITOR.
[2018-10-15 23:53] VITALS: BP 126/91
[2018-10-16] VITALS (7 sets, daily range): BP systolic 121–159; BP diastolic 53–108
--- NOTE | 2018-10-16 02:00 | NUR ---
PT IS TALKING NOW AND IS ORIEBNTED X 3.
[2018-10-16 02:24] LABS: HEMOGLOBIN 8.1 gm/dL (12.0-15.0); MCH 29.3 pg (26.0-34.0); MCHC 32.2 g/dL (28.0-37.0); RBC 2.75 mil/uL (4.20-5.00); RDW 15.6 % (10.5-14.5); WBC 7.4 thou/uL (4.0-11.0)
[2018-10-16 02:27] LABS: CALCIUM 8.7 mg/dL (8.5-10.1); CREATININE 2.6 mg/dL (0.6-1.0); POTASSIUM 4.8 mmol/L (3.5-5.1)
[2018-10-16 02:38] LABS: ALBUMIN 2.8 g/dL (3.4-5.0); TOTAL BILIRUBIN 0.3 mg/dL (<0.1-1.0); TOTAL PROTEIN 6.5 g/dL (6.4-8.2); TROPONIN-I 0.57 ng/mL (<0.06)
--- NOTE | 2018-10-16 06:00 | NUR ---
PT AWAKE AND ALERT. FIESTY! THREW HER LEGS OVER SIDE RAIL AND AND SAID SHE WANTED TO GO TO THE TOILET. USED BEDSIDE COMMODE. VERY STEADY ON HER FEET. HAD A LARGE DARK GREEN SOFT STOOL. REMAINS IN JUNCTIONAL GEOFF RATE OF 41 DENIES PAIN. WILL CONT TO MONITOR. BED ALARM ON.
--- NOTE | 2018-10-16 06:00 | NUR ---
PT THREW LEGS OVER SIDE RAIL. GOT HER UP TO BEDSIDE COMMODE. HAD A LARGE DARK GREEN STOOL. STATES I JUST WANT TO GET OUT OF HERE. REMAIBNS LINDSEY JUNCTIONAL RHYTHM RATE 39 TO 40. WILL CONT TO MONITOR.
--- NOTE | 2018-10-16 13:13 | NUR ---
Pt assessed d/t moderate risk screening. Admitted with elevated blood sugars, chest pain, acute on chronic renal failure. From SNF. Hx includes DM II, CVA, HTN, seizure disorder, anemia. Note mention of dementia in notes. Last A1c high at 12.4% per 04/24/18. BG on admit 456 mg/dl; AM fasting 220. On Humalog SSI only at this time w/ carb controlled diet. Woke pt at lunch arrival. Had difficulty staying awake. Encouraged protein, vegetables first at meal w/ decreased intake of starchy/dessert type items. Low activity/mobility also likely a factor in higher BGs/weight. Didn't seem awake/receptive enough for diabetes ed. Reports previous ed. States normal appetite. Low nutrition risk.
--- NOTE | 2018-10-16 15:19 | NUR ---
patient with recent dc from [facility] September 22 to [facility]. Sp with Safia from [place] who reports they will need to obtain auth again for return stay. Requested she begin that process now. Faxed pertinent information to facility. Left dtr a message. Patient nodded yes to some questions then fell asleep. Following for dc planning.
--- NOTE | 2018-10-16 15:50 | NUR ---
ASSUMED CARE THIS AM. PATIENT SLEEPING. WAKES TO VOICE BUT REMAINS DROWSY. FOLLOWS COMMANDS. VERBALIZED HER NAME AND . DENIES CP OR NAUSEA. JUNCTIONAL GEOFF ON MONITOR. HISTORY OF FRONTAL STROKE AND HAS EPISODES OF BEING NON VERBAL. 3L NC. INCONTINENT OF STOOL AND URINE. LARGE GREEN SOFT STOOL NOTED. PERICARE PROVIDED AND BARRIER CREAM APPLIED. SKIN INTACT OOB TO CHAIR WITH OT PT ATTEMPTED TO WORK WITH PATIENT BUT SHE WAS TOO DROWSY. ASSESSMENT DONE AND DROWSY BUT FOLLOWING COMMANDS. VERBALIZED HER NAME AND LOCATION.
[2018-10-17 02:47] VITALS: BP 176/71
[2018-10-17 05:12] LABS: ALBUMIN 2.7 g/dL (3.4-5.0); CALCIUM 8.7 mg/dL (8.5-10.1); CREATININE 2.4 mg/dL (0.6-1.0); POTASSIUM 4.6 mmol/L (3.5-5.1)
--- NOTE | 2018-10-17 06:38 | NUR ---
Pt awake off and on through the night with no c/o pain. VS stable and am lab results noted. Continue with POC.
--- NOTE | 2018-10-17 07:45 | EKG ---
[address] [place] [address] ELECTROCARDIOGRAM REPORT Name: SERG GRISSOM Room #: 206-P ADM IN M.R.#: [id number] ������������������ Admission: 10/15/18 ������������������ Attend Phys: Sathish Jarrell Discharge: ������������������ Date of : 43 Report #: [id number] ����������������������������������������������������������������� [id number] THIS REPORT FOR: //name// [facility] ED Test Date: 2018-10-15 Test Time: 19:24:28 Pat Name: SERG GRISSOM Department: Room: 206 Gender: F Manager Military: DAMIEN : 1945 Requested By: Nas Fierro Order Number: [id number] MD: Oneal Simon Measurements Intervals [place] Rate: 42 P: SC: QRS: 67 QRSD: 119 T: 79 QT: 539 QTc: 451 Interpretive Statements Junctional rhythm Nonspecific intraventricular conduction delay Nonspecific T abnrm, anterolateral leads Compared to ECG 09/22/2018 18:22:44 Junctional rhythm now present Nonspecific change in the T-wave abnormality Electronically Signed On 10-17-2018 7:45:28 CDT by Oneal Simon [email or web address] ��������������������������������������������� <ELECTRONICALLY SIGNED> ���������������������������������������� By: Oneal Simon MD, [facility] ��������������������������������������������� 10/17/18 0745 23 23 Oneal Simon MD, [facility] /EPI
--- NOTE | 2018-10-17 07:53 | EKG ---
[place] [address] [facility] [place] [address] ELECTROCARDIOGRAM REPORT Name: SERG GRISSOM Room #: 206-P ADM IN M.R.#: [id number] ������������������ Admission: 10/15/18 ������������������ Attend Phys: Sathish Jarrell Discharge: ������������������ Date of : 43 Report #: [id number] ����������������������������������������������������������������� [id number] THIS REPORT FOR: //name// [facility] ED Test Date: 2018-10-15 Test Time: 22:41:13 Pat Name: SERG GRISSOM Department: Room: 206 Gender: F Assistant Hairstylist: SUSANNA : 1945 Requested By: Son Muñoz Order Number: [id number] MD: Oneal Simon Measurements Intervals [place] Rate: 38 P: [place]: QRS: 65 QRSD: 125 T: 81 QT: 581 QTc: 462 Interpretive Statements Junctional rhythm Nonspecific T wave abnormality Compared to ECG 09/22/2018 18:22:44 No significant change was found Electronically Signed On 10-17-2018 7:52:55 CDT by Oneal Simon [email or web address] ��������������������������������������������� <ELECTRONICALLY SIGNED> ���������������������������������������� By: Oneal Simon MD, [facility] ��������������������������������������������� 10/17/18 0752 2241 2241 Oneal Simon MD, [facility] /EPI
--- NOTE | 2018-10-17 07:57 | EKG ---
[place] [address] [facility] [address] ELECTROCARDIOGRAM REPORT Name: SERG GRISSOM Room #: 206-P ADM IN M.R.#: [id number] ������������������ Admission: 10/15/18 ������������������ Attend Phys: Sathish Jarrell Discharge: ������������������ Date of : 43 Report #: [id number] ����������������������������������������������������������������� [id number] THIS REPORT FOR: //name// [facility] Test Date: 2018-10-16 Test Time: 07:02:58 Pat Name: SERG GRISSOM Department: Room: 206 P Gender: F Manual Arts Therapy Teacher: TERI : 1945 Requested By: Liliana Santiago Order Number: [id number] MD: Oneal Simon Measurements Intervals [place] Rate: 41 P: FL: QRS: 59 QRSD: 112 T: 68 QT: 589 QTc: 487 Interpretive Statements Junctional bradycardia Borderline intraventricular conduction delay Nonspecific T abnrm Borderline prolonged QT interval Compared to ECG 09/22/2018 18:22:44 no significant change was found Electronically Signed On 10-17-2018 7:56:45 CDT by Oneal Simon [email or web address] ��������������������������������������������� <ELECTRONICALLY SIGNED> ���������������������������������������� By: Oneal Simon MD, [facility] ��������������������������������������������� 10/17/18 [facility]6 0702 0702 Oneal Simon MD, [facility] /EPI
[2018-10-17 08:18] VITALS: BP 130/61
[2018-10-17 09:01] LABS: URINE BILIRUBIN NEGATIVE (Negative); URINE BLOOD TRACE (Negative); URINE CLARITY SL CLOUDY; URINE COLOR YELLOW; URINE GLUCOSE-RANDOM* TRACE (Negative); URINE KETONES NEGATIVE (Negative); URINE LEUKOCYTES 1+ (Negative); URINE NITRITE NEGATIVE (Negative); URINE PROTEIN (DIPSTICK) 2+ (Negative); URINE SPECIFIC GRAVITY 1.015 (1.005-1.035); URINE UROBILINOGEN 0.2 E.U./dl (0.2-1.0)
[2018-10-17 09:12] LABS: AMORPHOUS URATES Few /LPF (None Seen); CASTS None Seen /LPF (None Seen); SQUAMOUS 0-3 Few /LPF (0-3); URINE RBC 0-2 Rare /HPF (0-2); URINE WBC 6-15 Few /HPF (0-5)
[2018-10-17 12:07] VITALS: BP 170/42
--- NOTE | 2018-10-17 12:54 | NUR ---
PT DISCHARGING TODAY TO [facility] FOR SKILLED STAY FAXED DC ORDERS/SUMMARY TO FACILITY SPOKE WITH DIEGO IN ADM SHE RECEIVED DC ORDERS AND SET UP TRANSPORT VIA WC VAN FOR 1400 TODAY. NOTIFIED PT'S DTR/DPOA JOSUE OF DC AND TIME OF TRANSPORT. UNIT NOTIFIED AND CHART COPY PER US. RN TO CALL REPORT TO [phone].
--- NOTE | 2018-10-17 14:20 | NUR ---
ASSESSMENT CHARTED - MEDS PER ELIANA SOTO DIET AND FLUIDS, NO CO'S OF PAIN OR NAUSEA. UP TO THE BSC AND TO THE CHAIR A LITTLE UNSTEADY ON FEET -USING WALKER. PT BACK TO FACILITY THIS AFTERNOON. REPORT CALLED TO [facility] - LEFT UNIT VIA STRECHTER, MONITOR AND RIGHT EJ REMOVED PRIOR TO D/C. NO CO'S AT TIME OF DISCHARGE.
--- NOTE | 2018-10-17 23:32 | EKG ---
[address] [address] ELECTROCARDIOGRAM REPORT Name: HARSHADimitrySERG Room #: 206-[facility] IN M.R.#: [id number] ������������������ Admission: 10/15/18 ������������������ Attend Phys: Sathish Jarrell Discharge: 10/17/18 ������������������ Date of : 43 Report #: [id number] ����������������������������������������������������������������� [id number] THIS REPORT FOR: //name// [facility] Test Date: 2018-10-17 Test Time: 08:47:20 Pat Name: SERG GRISSOM Department: Room: [facility] Gender: F Typing Checker: Sharmin LUGO : 1945 Requested By: Josh Thorne Order Number: [id number] MD: Josh Thorne Measurements Intervals [place] Rate: 78 P: 67 CO: 133 QRS: 76 QRSD: 89 T: 92 QT: 426 QTc: 486 Interpretive Statements Sinus rhythm Low voltage, extremity leads Nonspecific T abnormalities, lateral leads Borderline prolonged QT interval Compared to ECG 10/16/2018 07:02:58 Low QRS voltage now present T-wave abnormality now present Electronically Signed On 10-17-2018 23:32:16 CDT by Josh Thorne [email or web address] ��������������������������������������������� <ELECTRONICALLY SIGNED> ���������������������������������������� By: Josh Thorne MD ��������������������������������������������� 10/17/18 2332 0847 0847 Josh Thorne MD /EPI
--- NOTE | 2018-10-18 08:06 | HC ---
[facility] [place] [address] CONSULTATION Name: SERG GRISSOM Room #: 206-P [facility] IN M.R.#: [id number] Admission: 10/15/18 ������������������ Attend Phys: Sathish Jarrell Discharge: 10/17/18 ������������������ Date of : 43 Report #: [id number] THIS REPORT FOR: //name// CC: LOCO physician/PCP Sathish Jarrell REASON FOR THE CONSULTATION: Chronic kidney disease. REASON FOR THE PRESENTATION: Sent from her nursing facility because of high blood sugar. HISTORY OF PRESENT ILLNESS: A 73-year-old with extensive past medical history including diabetes mellitus, hypertension, chronic kidney disease with a baseline creatinine of around 2. She has had repeated CVA in the past. She is also known to have hyperlipidemia, seizure disorder, dementia. She was sent from her nursing facility because of an elevated blood sugar. She was found to have an elevated creatinine on presentation above her baseline at 2.7 mandating a Nephrology consultation. The patient was recently discharged from the hospital after extensive stay for recurrent CVAs. She has all the risk factor for chronic kidney disease. We have evaluated her back in August for hyponatremia. PAST MEDICAL HISTORY: 1. Diabetes mellitus. 2. Hypertension. 3. Recurrent CVA. 4. Hyperlipidemia. 5. Dementia. 6. Breast reduction surgeries. 7. Cholecystectomy. 8. Tonsillectomy. 9. MRSA. REVIEW OF SYSTEMS: Unobtainable given the patient's mental status. FAMILY HISTORY: Unobtainable given the patient's baseline dementia. SOCIAL HISTORY: Apparently, she resides in a nursing facility. Other parts not obtainable given the patient's mental status. MEDICATIONS: Listed for the patient are the followin. Aspirin. 2. Amlodipine. 3. Metoprolol. 4. Plavix. 5. Atorvastatin. 6. Keppra. [facility] [address] [place] [address] CONSULTATION Name: SERG GRISSOM Room #: 206-P [facility] IN ..#: [id number] Admission: 10/15/18 ������������������ Attend Phys: Sathish Jarrell Discharge: 10/17/18 ������������������ Date of : 43 Report #: [id number]. Insulin. PHYSICAL EXAMINATION: GENERAL: She is confused. VITAL SIGNS: Blood pressure this morning was 143/62. HEAD AND NECK: No jugular venous distention. CHEST: No crackles. CARDIOVASCULAR: Regular with no rub detected. ABDOMEN: Soft, nontender. LOWER EXTREMITIES: No edema. LABORATORY AND DIAGNOSTIC DATA: Laboratory values from this morning reviewed: White blood cell count 7.4, hemoglobin 8.1. Sodium 144, BUN is 57, creatinine is 2.6, AST is elevated at 114, ALT is elevated at 376. ASSESSMENT, IMPRESSION: 1. Acute kidney injury. 2. Chronic kidney disease with baseline creatinine of around 2.0. 3. Elevated liver enzymes. 4. Elevated blood sugar. 5. Junctional bradycardia. 6. Repeated strokes. 7. Seizure disorder. PLAN: 1. I will initiate the appropriate acute kidney injury workup. She has longstanding diabetes mellitus and hypertension with evidence of chronic kidney disease on her previous laboratory values highly likely due to diabetes mellitus and hypertension. 2. Initiate IV fluid. 3. Investigate the source for her elevated liver enzymes. 4. Avoid nephrotoxins. 5. Strict input and output. 6. Watch electrolytes and acid base status. 7. Management of other medical issues as per the primary team. ��������������������������������������������� <ELECTRONICALLY SIGNED> ���������������������������������������� By: Karli Olea MD ��������������������������������������������� 10/18/18 0806 0847 1116 Karli Olea MD /nt
== END 2018-10-17 14:42 | DRG 682 ==
LOC: ER 17:38 → EROBS 22:41 → 2N 22:41
PROVIDERS: Emergency Medicine; Hospitalist; Nurse Practitioner Family; ADMIT Hospitalist
DX: N17.9 Acute kidney failure, unspecified (principal); G93.41 Metabolic encephalopathy; E87.0 Hyperosmolality and hypernatremia; E11.22 Type 2 diabetes mellitus with diabetic chronic kidney disease; E78.5 Hyperlipidemia, unspecified; G40.909 Epilepsy, unspecified, not intractable, without status epilepticus; F20.9 Schizophrenia, unspecified; F03.90 Unspecified dementia, unspecified severity, without behavioral disturbance, psychotic disturbance, mood disturbance, and anxiety; I12.9 Hypertensive chronic kidney disease with stage 1 through stage 4 chronic kidney disease, or unspecified chronic kidney disease; D64.9 Anemia, unspecified; Z87.440 Personal history of urinary (tract) infections; Z87.11 Personal history of peptic ulcer disease; Z86.73 Personal history of transient ischemic attack (TIA), and cerebral infarction without residual deficits; Z90.49 Acquired absence of other specified parts of digestive tract; Z86.14 Personal history of Methicillin resistant Staphylococcus aureus infection; Z79.1 Long term (current) use of non-steroidal anti-inflammatories (NSAID); Z79.82 Long term (current) use of aspirin; Z79.4 Long term (current) use of insulin; Z79.899 Other long term (current) drug therapy; Z88.0 Allergy status to penicillin; Z88.2 Allergy status to sulfonamides
CPT/HCPCS: 10081

== ENCOUNTER 2018-10-19 10:35 | Inpatient (IN) | payer OTHER ==
[~2018-10-19] VITALS: Ht 172.7 cm; Wt 99.3 kg
[2018-10-19 10:37] VITALS: BP 123/52
[2018-10-19 11:50] LABS: CALCIUM 9.3 mg/dL (8.5-10.1); CREATININE 2.4 mg/dL (0.6-1.0); POTASSIUM 4.9 mmol/L (3.5-5.1)
[2018-10-19 11:55] LABS: ALBUMIN 2.8 g/dL (3.4-5.0); MAGNESIUM 1.8 mg/dL (1.8-2.4); TOTAL BILIRUBIN 0.3 mg/dL (<0.1-1.0); TOTAL PROTEIN 6.4 g/dL (6.4-8.2)
[2018-10-19 11:58] LABS: TROPONIN-I 0.92 ng/mL (<0.06)
[2018-10-19 12:00] LABS: BASOPHILS 0.8 % (0.0-2.0); EOSINOPHILS 2.8 % (0.0-3.0); HEMATOCRIT 24.9 % (37.0-47.0); HEMOGLOBIN 8.1 gm/dL (12.0-15.0); LYMPHOCYTES 17.5 % (24.0-44.0); MCH 29.6 pg (26.0-34.0); MCHC 32.4 g/dL (28.0-37.0); MCV 91.3 fL (80.0-100.0); MONOCYTES 4.9 % (1.0-8.0); PLATELET COUNT 216 thou/uL (150-400); RBC 2.73 mil/uL (4.20-5.00); RDW 16.2 % (10.5-14.5); WBC 8.2 thou/uL (4.0-11.0)
[2018-10-19 14:41] VITALS: BP 132/62
[2018-10-19 15:06] VITALS: BP 108/91
[2018-10-19 17:21] VITALS: BP 145/54
[2018-10-19 20:03] VITALS: BP 109/52
[2018-10-20 05:31] VITALS: BP 137/58
[2018-10-20 05:48] LABS: CREATININE 2.5 mg/dL (0.6-1.0); HEMATOCRIT 25.1 % (37.0-47.0); MCH 29.3 pg (26.0-34.0); MCHC 31.7 g/dL (28.0-37.0); MCV 92.4 fL (80.0-100.0); POTASSIUM 4.4 mmol/L (3.5-5.1); RBC 2.72 mil/uL (4.20-5.00); RDW 16.5 % (10.5-14.5); WBC 6.7 thou/uL (4.0-11.0)
[2018-10-20 07:47] VITALS: BP 141/63
[2018-10-20 11:22] VITALS: BP 148/69
[2018-10-20 16:01] VITALS: BP 151/60
[2018-10-20 20:09] VITALS: BP 150/60
[2018-10-21 04:43] VITALS: BP 136/64
[2018-10-21 05:25] LABS: BE(vivo) -7.4 mmol/L (-2 to +3); HCO3 17.7 mmol/L (22.0-26.0); PCO2 33.8 mmHg (35.0-45.0); PO2 138.5 mmHg (80.0-100.0); pH 7.336 (7.360-7.450); sO2 98.6 % (92.0-98.0)
[2018-10-21 05:40] LABS: ALBUMIN 2.6 g/dL (3.4-5.0); CALCIUM 8.5 mg/dL (8.5-10.1); CREATININE 2.1 mg/dL (0.6-1.0); POTASSIUM 4.4 mmol/L (3.5-5.1)
[2018-10-21 05:42] LABS: URINE BILIRUBIN NEGATIVE (Negative); URINE BLOOD NEGATIVE (Negative); URINE CLARITY SL CLOUDY; URINE COLOR YELLOW; URINE GLUCOSE-RANDOM* NEGATIVE (Negative); URINE KETONES NEGATIVE (Negative); URINE LEUKOCYTES-REFLEX NEGATIVE (Negative); URINE NITRITE-REFLEX NEGATIVE (Negative); URINE PROTEIN (DIPSTICK) 2+ (Negative); URINE SPECIFIC GRAVITY 1.025 (1.005-1.035); URINE UROBILINOGEN 0.2 E.U./dl (0.2-1.0)
[2018-10-21 05:48] LABS: AMORPHOUS URATES Moderate /LPF (None Seen); BACTERIA-REFLEX None Seen /HPF (None Seen); CASTS None Seen /LPF (None Seen); CRYSTALS None Seen /LPF (None Seen); MUCUS None Seen strn/LPF (None Seen); SQUAMOUS None Seen /LPF (0-3); URINE RBC None Seen /HPF (0-2); URINE WBC-REFLEX None Seen /HPF (0-5)
[2018-10-21 08:57] VITALS: BP 134/65
[2018-10-21 14:43] VITALS: BP 134/65
[2018-10-21 18:22] VITALS: BP 171/65
--- NOTE | 2018-10-21 18:33 | EKG ---
[place] [address] [facility] [place] [address] ELECTROCARDIOGRAM REPORT Name: JACIELLAITH Room #: 217-P ADM IN M.R.#: [id number] Admission: 10/19/18 Attend Phys: Sathish Jarrell Discharge: Date of : 43 Report #: [id number] THIS REPORT FOR: //name// [facility] ED Test Date: 2018-10-19 Test Time: 10:44:04 Pat Name: SERG GRISSOM Department: Room: 217 Gender: F Cable Splicer: TOBY : 1945 Requested By: Danielle Ferrara Order Number: [id number] MD: Sanjay Ivey Measurements Intervals [place] Rate: 38 P: MT: QRS: 77 QRSD: 99 T: 89 QT: 636 QTc: 506 Interpretive Statements Junctional rhythm Low voltage Early transition Compared to ECG 10/17/2018 08:47:20 Junctional rhythm now present Electronically Signed On 10-21-2018 18:33:34 CDT by Sanjay Ivey [email or web address] <ELECTRONICALLY SIGNED> By: Sanjay Ivey MD 10/21/18 1833 1044 1044 Sanjay Ivey MD /EPI
[2018-10-21 20:00] VITALS: BP 180/64
[2018-10-22 04:00] VITALS: BP 187/78
[2018-10-22 05:30] LABS: ALBUMIN 2.7 g/dL (3.4-5.0); CREATININE 2.1 mg/dL (0.6-1.0); PHOSPHORUS 3.7 mg/dL (2.5-4.9); POTASSIUM 4.8 mmol/L (3.5-5.1)
[2018-10-22 08:20] VITALS: BP 189/79
--- NOTE | 2018-10-22 08:52 | EKG ---
[place] [address] [facility] [place] [address] ELECTROCARDIOGRAM REPORT Name: SERG GRISSOM Room #: 217-P ADM IN M.R.#: [id number] Admission: 10/19/18 Attend Phys: Sathish Jarrell Discharge: Date of : 43 Report #: [id number] THIS REPORT FOR: //name// [facility] Test Date: 2018-10-20 Test Time: 10:41:19 Pat Name: SERG GRISSOM Department: Room: 217 P Gender: F Patcher: SUSANNA : 1945 Requested By: Tonia Beeeb Order Number: [id number] MD: Oneal Simon Measurements Intervals [place] Rate: 44 P: 58 CA: 135 QRS: 57 QRSD: 106 T: 77 QT: 531 QTc: 455 Interpretive Statements Sinus bradycardia Low voltage, extremity leads Compared to ECG 10/17/2018 08:47:20 Sinus bradycardia has replaced junctional bradycardia Electronically Signed On 10-22-2018 8:51:44 CDT by Oneal Simon [email or web address] <ELECTRONICALLY SIGNED> By: Oneal Simon MD, [facility] 10/22/18 0851 1041 104 Oneal Simon MD, [facility] /EPI
--- NOTE | 2018-10-22 09:09 | EKG ---
[place] [address] [facility] [place] [address] ELECTROCARDIOGRAM REPORT Name: SERG GRISSOM Room #: 217-P ADM IN M.R.#: [id number] Admission: 10/19/18 Attend Phys: Sathish Jarrell Discharge: Date of : 43 Report #: [id number] THIS REPORT FOR: //name// [facility] Test Date: 2018-10-21 Test Time: 07:38:58 Pat Name: SERG GRISSOM Department: Room: 217 P Gender: F Geochemical Manager: NU : 1945 Requested By: Tonia Beebe Order Number: [id number] MD: Oneal Simon Measurements Intervals [place] Rate: 42 P: 57 MA: 132 QRS: 48 QRSD: 108 T: 81 QT: 533 QTc: 446 Interpretive Statements Sinus bradycardia Low voltage, extremity leads Compared to ECG 10/17/2018 08:47:20 No significant change was found Electronically Signed On 10-22-2018 9:09:34 CDT by Oneal Simon [email or web address] <ELECTRONICALLY SIGNED> By: Oneal Simon MD, [facility] [address] 7 7 Oneal Simon MD, [facility] /EPI
[2018-10-22 10:00] VITALS: BP 186/70
[2018-10-22 11:50] VITALS: BP 186/69
[2018-10-22 19:30] VITALS: BP 143/67
[2018-10-23 04:03] VITALS: BP 142/70
[2018-10-23 04:08] LABS: ALBUMIN 2.6 g/dL (3.4-5.0); CALCIUM 8.8 mg/dL (8.5-10.1); CREATININE 1.9 mg/dL (0.6-1.0); POTASSIUM 4.5 mmol/L (3.5-5.1)
--- NOTE | 2018-10-23 08:03 | EKG ---
[place] [address] [facility] [place] [address] ELECTROCARDIOGRAM REPORT Name: SERG GRISSOM Room #: 217-P ADM IN M.R.#: [id number] Admission: 10/19/18 Attend Phys: Sathish Jarrell Discharge: Date of : 43 Report #: [id number] THIS REPORT FOR: //name// [facility] Test Date: 2018-10-22 Test Time: 07:05:37 Pat Name: SERG GRISSOM Department: Room: 217 P Gender: F Glass Loading Equipment Tender: Ash VIDAL : 1945 Requested By: Tonia Beebe Order Number: [id number] MD: Oneal Simon Measurements Intervals [place] Rate: 46 P: 58 HI: 126 QRS: 66 QRSD: 101 T: 79 QT: 472 QTc: 413 Interpretive Statements Sinus bradycardia Otherwise no significant abnormality Compared to ECG 10/19/2018 10:44:04 No significant change was found Electronically Signed On 10-23-2018 8:02:55 CDT by Oneal Simon [email or web address] <ELECTRONICALLY SIGNED> By: Oneal Simon MD, [facility] [address] 4 4 Oneal Simon MD, [facility] /EPI
[2018-10-23 08:09] VITALS: BP 187/84
--- NOTE | 2018-10-23 08:55 | EKG ---
[place] [address] [facility] [place] [address] ELECTROCARDIOGRAM REPORT Name: SERG GRISSOM Room #: 217-P ADM IN M.R.#: [id number] Admission: 10/19/18 Attend Phys: Sathish Jarrell Discharge: Date of : 43 Report #: [id number] THIS REPORT FOR: //name// [facility] Test Date: 2018-10-23 Test Time: 07:19:16 Pat Name: SERG GRISSOM Department: Room: 217 P Gender: F Litigation Coordinator: TERI : 1945 Requested By: Tonia Beebe Order Number: [id number] MD: Oneal Simon Measurements Intervals [place] Rate: 52 P: [place]: QRS: 57 QRSD: 85 T: 85 QT: 468 QTc: 436 Interpretive Statements Junctional rhythm Compared to ECG 10/21/2018 07:38:58 Junctional rhythm now present Sinus bradycardia no longer present Electronically Signed On 10-23-2018 8:54:54 CDT by Oneal Simon [email or web address] <ELECTRONICALLY SIGNED> By: Oneal Simon MD, [facility] 10/23/18 0854 8 8 Oneal Simon MD, [facility] /EPI
[2018-10-23 12:16] VITALS: BP 164/85
[2018-10-23 16:00] VITALS: BP 153/73
[2018-10-23 19:51] VITALS: BP 137/67
[2018-10-24 06:19] VITALS: BP 176/78
[2018-10-24 08:19] VITALS: BP 152/67
[2018-10-24 11:45] VITALS: BP 126/67
[2018-10-24 19:11] VITALS: BP 130/47
[2018-10-25] VITALS (7 sets, daily range): BP systolic 113–172; BP diastolic 6–69
[2018-10-25 05:18] LABS: HEMATOCRIT 24.5 % (37.0-47.0); MCH 29.6 pg (26.0-34.0); MCHC 32.6 g/dL (28.0-37.0); MCV 90.7 fL (80.0-100.0); RBC 2.7 mil/uL (4.20-5.00); RDW 16.2 % (10.5-14.5); WBC 6.1 thou/uL (4.0-11.0)
[2018-10-26 04:06] VITALS: BP 158/63
[2018-10-26 05:28] LABS: ALBUMIN 2.2 g/dL (3.4-5.0); CALCIUM 8.9 mg/dL (8.5-10.1); CREATININE 2.1 mg/dL (0.6-1.0); PHOSPHORUS 3.6 mg/dL (2.5-4.9); POTASSIUM 4.7 mmol/L (3.5-5.1)
[2018-10-26 07:46] VITALS: BP 136/61
[2018-10-26] MEDS ORDERED: IMDUR 30 MG TAB30 M1 PO (08:17)
[2018-10-26 11:45] VITALS: BP 174/69
--- NOTE | 2018-11-07 15:49 | CATHLAB ---
[facility] [address] [place] [address] INVASIVE PROCEDURE REPORT Name: JACIELSERGLAITH Room #: 217-P [facility] IN ..#: [id number] Admission: 10/19/18 Attend Phys: Sathish Benjamin Discharge: 10/26/18 Date of : 43 Date of Service: 11/07/18 1548 Report #: [id number] THIS REPORT FOR: //name// APPROVED REPORT Study performed: 10/25/2018 11:33:14 Patient Status: In-Patient Room #: Event Personnel: Sanjay Ivey MD Exam: Insertion of Dual Chamber Permanent Pacemaker Indications: Sick Sinus Syndrome/Tachy Daryl Syndrome Implanted Devices: [employer]: Device-Assurity MRI; REF.- [id number]; [id number]; Use before: 2020-04-26 [employer]: (RA) TENDRIL STS; REF.-2088TC-52; [id number]; Use before: 2021-07-24 [employer]: (RV) TENDRIL STS; REF.-2088TC-58; [id number]; Use before: 2021-08-24 Procedure The patient underwent informed consent. We discussed the details of the procedure including the risks, which include, but not limited to bleeding, infection, vascular damage, cardiac perforation, and pneumothorax. She understood these risks and was willing to proceed. As such, she was brought to the EP/Cardiac Catheterization laboratory in a fasting and sedated state and prepped and draped in a The patient underwent general anesthesia, with no anesthesia related complications. The patient was brought to the EP/Cardiac Catheterization laboratory and the left chest and shoulder were prepped and draped in a sterile manner. During this case, Fluoroscopy and no contrast were used for imaging. The left subclavian region was infiltrated with 2% Lidocaine subcutaneous anesthesia. A transverse incision was made in the left upper chest cavity. The subcutaneous pocket was formed via blunt dissection. Percutaneous venous access was achieved and an introducer sheath was inserted into the left Subclavian vein. Sheaths were positions using the modified Seldinger technique Through the introducer sheaths the atrial and ventricular lead wires were positioned in the right atrial appendage and right ventricular apex respectively. Utilizing fluoroscopic guidance, the atrial and ventricular lead wires were advanced over the wires and positioned in the right atria [address] [address] INVASIVE PROCEDURE REPORT Name: JACIELSERG Room #: 217-P [facility] IN M.R.#: [id number] Admission: 10/19/18 Attend Phys: Sathish Benjamin Discharge: 10/26/18 Date of : 43 Date of Service: 11/07/18 1548 Report #: [id number] and right ventricle respectively. Capturing and sensing thresholds were verified. Electrode Parameters P Wave: 1.8mv R Wave: 10.9mv Atrial Threshold: 1.0@0.4ms Ventricular Threshold: 0.5@0.4ms Atrial Resistance: 380 ohms Ventricular Resistance: 560 ohms Dual Chamber The atrial and ventricular leads were then secured using 2.0 ethibond sutures. The subcutaneous pocket was irrigated with ancef antibiotic solution.The atrial and ventricular leads were attached to the appropriate receptacles on the pulse generator and set screws firmly tightened to insure adequate contact and stability. The lead and pulse generator were placed into the subcutaneous pocket. Sharp and sponge counts were confirmed to be correct. At this time the pocket was closed subcutaneously with a 2.0 nonabsorbable suture in a running locking 2 layer closure and the skin was closed with a 3.0 Vicryl in a subcuticular stitch. The operative site was dressed in sterile fashion with steri strips and the patient was transferred to the floor in stable condition. Complications The patient tolerated the procedure well and there were no complications associated with the procedure. Findings Specimens Removed: N/A Estimated Blood Loss: 10 mL Conclusion 1. Successful implantation of a dual-chamber pacemaker Recommendations 1. Routine post pacemaker implantation protocol <ELECTRONICALLY SIGNED> By: Snajay Ivey MD 11/07/18 1548 1548 1548 Sanjay Ivey MD /INF
== END 2018-10-26 15:58 | DRG 242 ==
LOC: ER 10:35 → EROBS 12:12 → 2N 12:12
PROVIDERS: Anesthesiology; Hospitalist; Nurse Practitioner Acute Care; Nurse Practitioner Gerontology; Physician Assistant; ADMIT Hospitalist
PROC: 0JH606Z Insertion of Pacemaker, Dual Chamber into Chest Subcutaneous Tissue and Fascia, Open Approach (ICD-10-PCS; principal; 2018-10-25)
PROC: 02HK3JZ Insertion of Pacemaker Lead into Right Ventricle, Percutaneous Approach (ICD-10-PCS; principal; 2018-10-25)
PROC: 02H63JZ Insertion of Pacemaker Lead into Right Atrium, Percutaneous Approach (ICD-10-PCS; principal; 2018-10-25)
DX: R00.1 Bradycardia, unspecified (principal); I21.4 Non-ST elevation (NSTEMI) myocardial infarction; N17.9 Acute kidney failure, unspecified; E11.9 Type 2 diabetes mellitus without complications; E78.5 Hyperlipidemia, unspecified; G40.909 Epilepsy, unspecified, not intractable, without status epilepticus; N18.9 Chronic kidney disease, unspecified; I12.9 Hypertensive chronic kidney disease with stage 1 through stage 4 chronic kidney disease, or unspecified chronic kidney disease; D64.9 Anemia, unspecified; R74.0 Nonspecific elevation of levels of transaminase and lactic acid dehydrogenase [LDH]; F20.9 Schizophrenia, unspecified; F03.90 Unspecified dementia, unspecified severity, without behavioral disturbance, psychotic disturbance, mood disturbance, and anxiety; Z79.4 Long term (current) use of insulin; Z87.11 Personal history of peptic ulcer disease; Z86.73 Personal history of transient ischemic attack (TIA), and cerebral infarction without residual deficits; Z87.891 Personal history of nicotine dependence; Z90.49 Acquired absence of other specified parts of digestive tract; Z86.14 Personal history of Methicillin resistant Staphylococcus aureus infection; Z88.0 Allergy status to penicillin; Z88.2 Allergy status to sulfonamides; Z79.899 Other long term (current) drug therapy
CPT/HCPCS: 10081; 10194; 62110; 62900; 70005

== ENCOUNTER 2018-11-04 02:07 | Inpatient (IN) | payer OTHER ==
[~2018-11-04] VITALS: Ht 157.5 cm; Wt 101.2 kg
[~2018-11-04 02:07] MED LIST changes: +IMDUR 30 MG TAB30 M1 PO
[2018-11-04 02:08] VITALS: BP 154/89
[2018-11-04 02:25] LABS: ABSOLUTE NEUTROPHILS 5.4 thou/uL (1.4-8.2); BASOPHILS 0.6 % (0.0-2.0); EOSINOPHILS 3.9 % (0.0-3.0); HEMATOCRIT 23.3 % (37.0-47.0); HEMOGLOBIN 7.4 gm/dL (12.0-15.0); LYMPHOCYTES 18.9 % (24.0-44.0); MCH 28.5 pg (26.0-34.0); MCHC 31.9 g/dL (28.0-37.0); MCV 89.3 fL (80.0-100.0); MONOCYTES 4.2 % (1.0-8.0); PLATELET COUNT 356 thou/uL (150-400); POLYS 72.4 % (36.0-66.0); RDW 16.6 % (10.5-14.5); WBC 7.5 thou/uL (4.0-11.0)
[2018-11-04 02:37] LABS: CALCIUM 9.1 mg/dL (8.5-10.1); CREATININE 2.1 mg/dL (0.6-1.0); POTASSIUM 4.4 mmol/L (3.5-5.1)
[2018-11-04 02:43] LABS: URINE BILIRUBIN NEGATIVE (Negative); URINE BLOOD 1+ (Negative); URINE CLARITY SL CLOUDY; URINE COLOR YELLOW; URINE GLUCOSE-RANDOM* TRACE (Negative); URINE KETONES NEGATIVE (Negative); URINE LEUKOCYTES NEGATIVE (Negative); URINE NITRITE NEGATIVE (Negative); URINE PROTEIN (DIPSTICK) 2+ (Negative); URINE SPECIFIC GRAVITY >= 1.030 (1.005-1.035); URINE UROBILINOGEN 0.2 E.U./dl (0.2-1.0)
[2018-11-04 02:55] LABS: BACTERIA >30 Many /HPF (None Seen); CASTS None Seen /LPF (None Seen); CRYSTALS None Seen /LPF (None Seen); MUCUS 0-3 Light strn/LPF (None Seen); SQUAMOUS None Seen /LPF (0-3); URINE RBC 3-10 Few /HPF (0-2)
[2018-11-04 02:56] LABS: TRANSITIONAL EPITHEL CELL 0-3 Few /LPF (None Seen); URINE WBC 0-5 Rare /HPF (0-5)
[2018-11-04 06:16] VITALS: BP 185/84
[2018-11-04 08:00] VITALS: BP 182/89
[2018-11-04] MEDS ORDERED: TYLENOL325 MG PO (09:08)
--- NOTE | 2018-11-04 09:20 | NUR ---
NOC NURSE RECEIVING REPORT THROUGHOUT SHIFT CHANGE, GAVE ME FEW DETAILS, FAMILY ACCOMPANIED PT, SHE IS A&0X4, MED REC COMPLETED, PLACED MEAL ORDER PT HADN'T HAD MEAL DELIVERED, NO C/O AT THIS TIME. MESSAGED PHYSICIAN TO GIVE FYI ON MEDS WELL HER HTN THROUGHOUT ED AND FIRST A.M. VS HERE ON UNIT. ENCOURAGED PT AND FAMILY TO USE CALL LIGHT NEEDED. GOT EVERYONE COFFEE AND SNACKS RIGHT AFTER THEY SETTLED IN THEY WERE ALL HUNGRY. RA
--- NOTE | 2018-11-04 11:47 | EKG ---
[address] [address] ELECTROCARDIOGRAM REPORT Name: JEFFREYDIONISIODimitrySERG Room #: 452-P ADM IN M.R.#: [id number] Admission: 11/04/18 Attend Phys: Moses Mcgee MD Discharge: Date of : 43 Report #: [id number] THIS REPORT FOR: //name// [facility] ED Test Date: 2018-11-04 Test Time: 02:42:56 Pat Name: SERG GRISSOM Department: Room: [facility] Gender: F Cyber Systems Administrator: WESLEY : 1945 Requested By: Micky Samaniego Order Number: [id number] MD: Candido Zapata Measurements Intervals [place] Rate: 70 P: ND: 144 QRS: 71 QRSD: 102 T: 89 QT: 422 QTc: 456 Interpretive Statements Atrial-paced complexes Low voltage, extremity leads Nonspecific T abnormalities, lateral leads Baseline wander in lead(s) V3 Compared to ECG 10/23/2018 07:19:16 Low QRS voltage now present T-wave abnormality now present Junctional rhythm no longer present Electronically Signed On 11-04-2018 11:47:15 CDT by Candido Zapata [email or web address] <ELECTRONICALLY SIGNED> By: Candido Zapata MD 11/04/18 1147 0242 0242 Candido Zapata MD /EPI
--- NOTE | 2018-11-04 11:49 | NUR ---
COMMUNICATION W/PHYSICIAN ANOTHER FYI CONCERNING PT'S MED REC DONE AND HTN HX HERE SINCE ED ADMISSION
[2018-11-04 15:00] VITALS: BP 181/78
[2018-11-04 20:06] VITALS: BP 174/89
[2018-11-05 00:40] VITALS: BP 150/38
--- NOTE | 2018-11-05 04:36 | NUR ---
ASSUMED CARE OF PT AT 1900HRS. PT IS AOX3-4 BUT DOES NOT TALK ALL THE TIME, MAKING ASSESSMENT DIFFICULT. PT WALKED TO THE TOILET WITH SBA. PT HAD ELEVATED BP AND WAS GIVEN PRN BP MED. PT WAS ABLE TO SLEEP PART OF THE SHFT. NO S/S OF ACUTE DISTRESS. WILL CONTINUE TO MONITOR.
[2018-11-05 04:45] VITALS: BP 154/87
[2018-11-05 05:54] LABS: HEMOGLOBIN 6.9 gm/dL (12.0-15.0); RDW 16.1 % (10.5-14.5)
[2018-11-05 05:56] LABS: HEMATOCRIT 21.1 % (37.0-47.0); MCH 28.7 pg (26.0-34.0); MCV 86.9 fL (80.0-100.0); RBC 2.42 mil/uL (4.20-5.00); WBC 6.6 thou/uL (4.0-11.0)
[2018-11-05 06:04] LABS: CALCIUM 8.8 mg/dL (8.5-10.1); CREATININE 1.8 mg/dL (0.6-1.0); POTASSIUM 4.3 mmol/L (3.5-5.1)
[2018-11-05 07:26] VITALS: BP 182/87
[2018-11-05 14:11] VITALS: BP 136/61
[2018-11-05] MEDS ORDERED: CIPRO500 MG PO (14:57)
[2018-11-05] MEDS ORDERED: HYDROCODON-ACE1 EAC7 PO (15:01)
--- NOTE | 2018-11-05 16:45 | NUR ---
PT ADMITTED RELATED TO UTI, FALLS. CM REVIEWED CHART AND SPOKE WITH CARE TEAM. CM MET WITH PT AT BEDSIDE THIS DAY. PT IS A&O X4. CM ROLE INTRODUCED. PT IS FAMILIAR TO CM FROM PERVIOUS ADMISSIONS. PT LIVES IN A HOUSE WITH HER DTR AND GDTR WITH 8 STEPS TO ENTER AND 8 STEPS INSIDE. 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 PT HAS BEEN ON SERVICE WITH [facility] IN THE PAST. CARE TEAM INDICATED THAT PT IS MEDICALLY STABLE TO DC HOME THIS DAY WITH HH SERVICES. CM CALLED AND NOTIFIED PT'S DTR/DPOA JOSUE ROJAS. PT IS TO HAVE [facility] HH AND DR. MORAN IS TO FOLLOW. PT'S DTR IS TO PROVIDE TRANSPORT HOME THIS EVENING. NO OTHER CM INTERVENTION INICATED. CASE CLOSED.
[2018-11-05 16:48] VITALS: BP 136/61
--- NOTE | 2018-11-05 18:48 | NUR ---
PT STABLE THROUGHOUT SHIFT. PT C/O PAIN, ADDRESSED WITH MEDICATION WHICH OFFERED RELIEF. PT WORKED WITH PT. PT ANXIOUS TO DC, DAUGHTER IS TO DRY BOX OPERATOR THIS EVENING.
== END 2018-11-05 20:00 | disposition home health service (06) | DRG 690 ==
LOC: ER 02:07 → 4W 05:19 → EROBS 05:19 → 4W 07:06
PROVIDERS: Emergency Medicine; ADMIT Hospitalist
DX: N39.0 Urinary tract infection, site not specified (principal); I25.10 Atherosclerotic heart disease of native coronary artery without angina pectoris; R41.0 Disorientation, unspecified; D64.9 Anemia, unspecified; E78.5 Hyperlipidemia, unspecified; G40.909 Epilepsy, unspecified, not intractable, without status epilepticus; F20.9 Schizophrenia, unspecified; I12.9 Hypertensive chronic kidney disease with stage 1 through stage 4 chronic kidney disease, or unspecified chronic kidney disease; N18.9 Chronic kidney disease, unspecified; E11.22 Type 2 diabetes mellitus with diabetic chronic kidney disease; Z90.49 Acquired absence of other specified parts of digestive tract; Z86.73 Personal history of transient ischemic attack (TIA), and cerebral infarction without residual deficits; Z87.11 Personal history of peptic ulcer disease; Z86.14 Personal history of Methicillin resistant Staphylococcus aureus infection; Z79.84 Long term (current) use of oral hypoglycemic drugs; Z79.82 Long term (current) use of aspirin; Z88.0 Allergy status to penicillin; Z88.2 Allergy status to sulfonamides; Z95.0 Presence of cardiac pacemaker
CPT/HCPCS: 10045

== ENCOUNTER 2018-11-09 10:12 | Emergency (ER) | payer OTHER ==
[~2018-11-09] VITALS: Ht 157.5 cm; Wt 99.8 kg
[~2018-11-09 10:12] MED LIST changes: +CIPRO500 MG PO; +HYDROCODON-ACE1 EAC7 PO
[2018-11-09 11:42] VITALS: BP 183/94
== END 2018-11-09 11:56 | disposition home or self-care (01) ==
LOC: ER 10:12
DX: R51 Headache (principal); D69.1 Qualitative platelet defects; I12.9 Hypertensive chronic kidney disease with stage 1 through stage 4 chronic kidney disease, or unspecified chronic kidney disease; E11.22 Type 2 diabetes mellitus with diabetic chronic kidney disease; N18.9 Chronic kidney disease, unspecified; E78.5 Hyperlipidemia, unspecified; G40.909 Epilepsy, unspecified, not intractable, without status epilepticus; Z86.73 Personal history of transient ischemic attack (TIA), and cerebral infarction without residual deficits; Z90.49 Acquired absence of other specified parts of digestive tract; Z88.0 Allergy status to penicillin; Z88.2 Allergy status to sulfonamides; Z79.4 Long term (current) use of insulin; Z79.899 Other long term (current) drug therapy; W18.39XA Other fall on same level, initial encounter; Y93.89 Activity, other specified; Y92.098 Other place in other non-institutional residence as the place of occurrence of the external cause; Y99.9 Unspecified external cause status